=== PATIENT | male | born 1960 | race Caucasian/White ===

== ENCOUNTER 2023-03-20 08:53 | Outpatient (CLI) | payer BC, SELFPAY ==
--- NOTE | 2023-03-20 09:15 | CRLHL7_ITS ---
For Patients: As a result of the Century Cures Act, medical imaging exams and procedure reports are released immediately into your electronic medical record. You may view this report before your referring provider. If you have questions, please contact your health care provider. Ultrasound-guided core needle biopsy of left supraclavicular mass. CLINICAL HISTORY: Cervical adenopathy with large left supraclavicular mass. COMPARISON STUDIES: [facility] CT neck TECHNIQUE: Real-time ultrasound with image documentation was used for targeting the left supraclavicular lesion. Core biopsy specimens were obtained using an automated gun with a 18-gauge biopsy needle. CONSENT and TIME OUT: The procedure, risks, and alternatives were explained to the patient and a consent was signed. [place] Protocol was followed including pre-procedure verification that relevant information/documentation was available, reviewed and properly matched to the patient; consent accurate and complete; and equipment and supplies available. Time Out was conducted just prior to starting procedure to verify the four required elements: patient identity, correct side/site marked (if applicable), procedure, relevant images/results properly labeled and displayed (if applicable). PROCEDURE: The patient was positioned supine on the ultrasound table. The left side of the neck was prepped with ChloraPrep. 10 cc of 1 percent lidocaine used for local anesthesia. Core samples were obtained. The specimens were placed in 10% formalin and sent to the pathology department. Pressure was held on the biopsy site until all bleeding subsided. The skin incision was closed with Steri-Strips. LATERALITY: Left supraclavicular space LESION: Lobular hypoechoic conglomerate lymph node mass measuring 5 cm. SUSPICION FOR MALIGNANCY: High NUMBER OF SAMPLES: 5 IMPRESSION: Ultrasound-guided biopsy of left supraclavicular lymph node mass. Dictated by Arpit Valera MD @ 03/20/2023 11:16:48 AM (Electronically Signed)
== END 2023-03-20 08:54 | disposition home or self-care (01) ==
LOC: US 08:56
PROVIDERS: PCP Family Medicine; Visit Provider Family Medicine
DX: R59.1 Generalized enlarged lymph nodes (principal)
CPT/HCPCS: 20206; 76942; 88305; 88341; 88342; 88360; 88365; A4649

== ENCOUNTER 2023-03-28 13:44 | Emergency (ER) | payer BC, SELFPAY ==
[2023-03-28 13:51] VITALS: BP 114/75; PULSE 104; RESP 20; TEMP 38.4; O2SAT 98; BMI 25.4
--- NOTE | 2023-03-28 14:55 | CRLHL7_ITS ---
For Patients: As a result of the Cures Act, medical imaging exams and procedure reports are released immediately into your electronic medical record. You may view this report before your referring provider. If you have questions, please contact your health care provider. Indication: Fever Technique: Chest 2 views Comparison: None Findings: Cardiovascular and mediastinum: Heart size and vasculature are normal in caliber and appearance. Lungs and pleural spaces: Lungs are clear. No sign of infiltrate or mass. No sign of pleural effusion. No pneumothorax. Bones and soft tissues: No significant findings. Impression: No acute or significant findings. Dictated by Ever Albarran MD @ 03/28/2023 4:05:04 PM (Electronically Signed)
[2023-03-28 15:33] LABS: Lactate Sepsis w/Reflex* 1.7 mmol/L (0.5-1.9)
--- NOTE | 2023-03-28 15:34 | ED_ITS ---
HPI - General Adult General Date Seen: 03/28/23 Chief complaint: Urogenital Problems, Male Stated complaint: Fatigue, lymphoma, trouble urinating Time Seen by Provider: 03/28/23 13:54 History of Present Illness HPI narrative: This is a pleasant 63-year-old male presenting to the ER today with concern for fever, some generalized weakness, polydipsia without much urine output. He has a past medical history of hypertension and was recently diagnosed with lymphoma. He is not sure of the exact diagnosis or what kind of lymphoma he has. According to his recent oncology notes, he has follicular lymphoma grade IIIa. He just had the diagnosis about 10 days ago. He has had lymph node biopsies, CT scans of his neck, chest abdomen pelvis. He is due to have a PET scan at [facility] this week. He has been having low-grade fevers for a couple of weeks. He had been told these might be related to his lymphoma. However since Thursday night he has been worse. He has had higher fever, trouble sleeping, achiness and has been feeling worse. No other definite symptoms with the fever. No headache. No sore throat. No cough. No trouble breathing. No chest pain. No abdominal pain. No nausea or vomiting. He has been trying to drink lots of liquids and says he drinks for large cups of water per day. despite that for the past few days he has been noticing decreased urine output volume. Urine has been fairly yellow. This morning at a higher fever and was feeling worse, somewhat weak in general. No focal deficits. No rashes. No definite other urinary symptoms such as dysuria or cloudy urine. No flank pain. No diarrhea. He is not yet on chemotherapy. He is apparently due to see an oncologist sometime in the next week or 2 to determine a plan of care.. Related Data Home Medications Medication Instructions Recorded Confirmed aspirin 81 mg capsule 81 mg PO DAILY 03/28/23 03/28/23 hydrochlorothiazide 12.5 mg capsule 12.5 mg PO QAM 03/28/23 03/28/23 Allergies Allergy/AdvReac Type Severity Reaction Status Date / Time No Known Drug Allergies Allergy Verified 03/28/23 13:58 PFSH PFSH Social History Smoking Status: Former smoker Do you use any of these nicotine containing products: None Second hand tobacco smoke exposure: No How often do you have a drink containing alcohol: never AUDIT-C Alcohol total score: 0 Non-prescribed substance use: denies use service: No Exam Narrative: Exam Narrative: Constitutional: Appears well-developed and well-nourished. Alert. Conversant. Non toxic. HENT: Head: Atraumatic. Nose: Nose normal. Mouth/Throat: Oral mucosa is clear and moist. no trismus. Pharynx mildly erythematous with very tiny petechiae on the soft palate. Tonsils symmetric. No tonsillar enlargement or exudate. Eyes: Conjunctivae normal. EOM normal. Pupils equal, round, and reactive to light. No scleral icterus. Neck: Normal range of motion. Neck supple. No tracheal deviation present. Cardiovascular: Regular tachycardia heart rate about 105, regular rhythm. No gallop. No friction rub. No murmur heard. Symmetric radial artery pulses Pulmonary/Chest: Effort normal. No stridor. No respiratory distress. No wheezes. No rales. No rhonchi . No tenderness. Abdominal: Soft. Bowel sounds normal. No distension. No mass. No tenderness. No rebound. No guarding. No definite hepatosplenomegaly. No CVA tenderness. Musculoskeletal: RUE: Normal range of motion. No tenderness. No deformity LUE: Normal range of motion. No tenderness. No deformity RLE: Normal range of motion. No edema. No tenderness. No deformity LLE: Normal range of motion. No edema. No tenderness. No deformity Lymph: No cervical adenopathy. Neurological: Alert and oriented to person, place, and time. Normal strength. CN II-VII intact. No sensory deficit. GCS eye subscore is 4. GCS verbal subscore is 5. GCS motor subscore is 6. Normal coordination Skin: Skin is warm and dry. No rash noted. No pallor. Normal capillary refill. Psychiatric: Normal mood. Normal affect. Const: Vital Signs, click to edit/add: Vital Signs - 24 hr 03/28/23 13:51 03/28/23 17:33 03/28/23 17:59 Temperature 101.1 F H 100.6 F H Pulse Rate [Pulse Oximeter] 104 H 74 Respiratory Rate 20 22 Blood Pressure [Ri ght Upper Arm] 114/75 131/72 Pulse Oximetry 98 98 Oxygen Delivery Me thod Room Air Course Vital Signs Vital signs: Initial Vital Signs Temperature 101.1 F H 03/28/23 13:51 Temperature Source Temporal Artery Scan 03/28/23 13:51 Pulse Rate 104 H 03/28/23 13:51 Respiratory Rate 20 03/28/23 13:51 Blood Pressure 114/75 03/28/23 13:51 Blood Pressure Mean 88 03/28/23 13:51 Blood Pressure Position Sitting 03/28/23 13:51 Pulse Oximetry 98 03/28/23 13:51 Oxygen Delivery Method Room Air 03/28/23 13:51 Vital Signs Temperature 101.1 F H 03/28/23 13:51 Pulse Rate 104 H 03/28/23 13:51 Respiratory Rate 20 03/28/23 13:51 Blood Pressure 114/75 03/28/23 13:51 Pulse Oximetry 98 03/28/23 13:51 Oxygen Delivery Method Room Air 03/28/23 13:51 Temperature 100.6 F H 03/28/23 17:33 Pulse Rate 74 03/28/23 17:59 Respiratory Rate 22 03/28/23 17:59 Blood Pressure 131/72 03/28/23 17:59 Pulse Oximetry 98 03/28/23 17:59 Oxygen Delivery Method Room Air 03/28/23 13:51 Medical Decision Making MDM Narrative Medical decision making narrative: 63-year-old male with a recent diagnosis of follicular lymphoma, not yet on chemotherapy, presenting to the ER with concern for fever, also generalized weakness. In terms of the fever, he we are concerned because he has potential immunosuppression with his current lymphoma. is not currently on chemotherapy.. He is not neutropenic. He does have fever but no other clear symptoms to indicate a source for infection. On exam he has possible mild inflammation of the soft palate pharynx but no definite peritonsillar abscess. Lung sounds clear. Chest x-ray negative. COVIDnegative Flu and RSV negative.. No abdominal pain or flank pain to raise concern for intra-abdominal infection, pyelonephritis. Urinalysisnormal. Blood cultures are pending. White cell count is normal. CRP is elevated at 20.4. Blood pressure is normal. He has mild tachycardiac. After IV fluids heart rate improved to 74. No clear sepsis physiology. Labs do show hyponatremia. Sodium a few days ago was 132. Today it is down to 128. Unclear etiology. Patient does endorse drinking for large bottles of water per day. Potentially could be due to excess water intake. BUN and creatinine normal. Potassium normal at 3.9. Lactic acid normal. He does have mild anemia with a hemoglobin of 12.6. Platelet count 101. Suspect related to his lymphoma. No sign of active bleeding. No headache or confusion to suggest encephalitis or meningitis. No signs of skin infection or cellulitis. No evidence for joint infection or septic arthritis or osteomyelitis. Blood cultures pending. Discussed with the patient that the cause for his fever is unclear. Certainly occult infection, viral illness, or even bacteremia could be at play. Discussed options including admission for monitoring, pending your blood culture results versus discharge and monitoring at home. He strongly wants to discharge and does not want to be hospitalized. Therefore will discharge him home. He will follow-up with his primary, or come back to the ER within 2-3 days for recheck. He will also need to recheck his sodium level. Precautions for return to the ER reviewed. Questions answered. Patient is eager for discharge. Lab Data Labs: Lab Results 03/28/23 03/28/23 Range/Units 15:15 16:05 WBC 5.29 (4.50-11.00) K/uL RBC 4.66 (4.30-5.90) m/uL Hgb 12.6 L (13.5-17.5) gm/dL Hct 38.6 (37.0-53.0) % MCV 83 (80-100) fL MCH 27 (26-34) pg MCHC 33 (32-36) gm/dL RDW Coeff of Brooke 13.8 (11.5-15.5) % Plt Count 101 L (140-440) K/uL Neut % (Auto) 72.4 H (42.0-72.0) % Lymph % (Auto) 9.1 L (20-44) % Kleberg % (Auto) 14.2 H (0.0-11.0) % Eos % (Auto) 3.2 (0.0-7.0) % Baso % (Auto) 0.2 (0.0-3.0) % Neut # (Auto) 3.80 (1.7-7.0) K/uL Lymph # (Auto) 0.50 L (0.90-2.90) K/uL Kleberg # (Auto) 0.80 (0.00-0.90) K/UL Eos # (Auto) 0.17 (0.00-0.50) K/uL Baso # (Auto) 0.01 (0.00-0.30) K/uL Abs Immat Gran (auto) 0.05 (0.00-0.30) K/uL Imm/Tot Granulo (auto) 0.9 % Sodium 128 L (135-149) mmol/L Potassium 3.9 (3.6-5.1) mmol/L Chloride 92 L (96-114) mmol/L Carbon Dioxide 24 (20-32) mmol/L BUN 17 (7-30) mg/dL Creatinine 1.0 (0.5-1.5) mg/dL Estimated Creat Clear 81.91 Estimated GFR 84 ml/min Glucose 118 H (60-115) mg/dL Lactate 1.7 (0.5-1.9) mmol/L Calcium 8.6 (8.4-10.6) mg/dL C-Reactive Protein 20.4 H (0.5-1.0) mg/dL Urine Color Yellow (Yellow) Urine Appearance Clear (Clear) Urine pH 5.5 (5.0-8.5) Ur Specific [place] 1.015 (1.000-1.030) Urine Protein 2+ A (Negative) Urine Glucose (UA) Negative (Negative) Urine Ketones 3+ A (Negative) Urine Blood Negative (Negative) Urine Nitrite Negative (Negative) Urine Bilirubin 1+ A (Negative) Urine Urobilinogen 1.0 (0.2-1.0) Ur Leukocyte Esterase Negative (Negative) Urine RBC 0-2 (0-2) Urine WBC 0-2 (0-5) Ur Squamous Epith Cells None (None-Few) Amorphous Sediment Few A (None) Urine Bacteria Few A (None) SARS-CoV-2 (PCR) Negative SARS-CoV-2 (Negative) Influenza Type A (PCR) Negative PCR FLU A (Negative) Influenza Type B (PCR) Negative PCR FLU B (Negative) RSV (PCR) Negative PCR RSV (Negative) Group A Strep DNA NOT DETECTED (Not Detectd) Imaging Data Chest x-ray: Attestation: I have reviewed the pertinent imaging results. Radiologist's impression: Impression: No acute or significant findings. ECG Data Attestation: I personally reviewed and interpreted this ECG as follows: Interpretation: Rate 74 Normal sinus rhythm IN interval if 152 QRS axis : Left axis deviation. No pathologic Q-waves. ST segment/T-wave-no acute ischemia. QTC 419 Discharge Plan Discharge Clinical Impression: Fever, Hyponatremia Patient Disposition: Home, Self-Care Condition: Stable Instructions: Hyponatremia (ED), Fever in Adults (ED) Additional Instructions: As we discussed, the exact cause of the fever is unclear at this time. His blood cultures are still not resulted from the lab. If the result is a positive we will call you and have you return to the ER right away. If you get any worse or if you develop new symptoms such as headache, confusion, vomiting, cough, chest pain, abdominal pain please come back to the ER right away. Please see your doctor (or return to the ER) to recheck your labs and sodium level within 2-3 days. Prescriptions: No Action hydrochlorothiazide 12.5 mg capsule 12.5 mg PO QAM aspirin 81 mg capsule 81 mg PO DAILY Follow Up/Referrals: Mehul Schmidt MD [Primary Care Provider] - Stand Alone Forms: [facility] Info Instructions
[2023-03-28 15:46] LABS: Chloride* 92 mmol/L (96-114); Potassium* 3.9 mmol/L (3.6-5.1); Sodium* 128 mmol/L (135-149)
[2023-03-28 15:49] LABS: Est. Creatinine Clearance* 81.91; Estimated Glomerular Filt Rate 84 ml/min
[2023-03-28 15:50] LABS: Blood Urea Nitrogen* 17 mg/dL (7-30); Calcium* 8.6 mg/dL (8.4-10.6); Carbon Dioxide* 24 mmol/L (20-32); Glucose* 118 mg/dL (60-115)
[2023-03-28 15:53] LABS: Basophils Absolute Auto 0.01 K/uL (0.00-0.30); Basophils Percent Auto 0.2 % (0.0-3.0); Eosinophils Absolute Auto 0.17 K/uL (0.00-0.50); Eosinophils Percent Auto 3.2 % (0.0-7.0); Hematocrit 38.6 % (37.0-53.0); Hemoglobin* 12.6 gm/dL (13.5-17.5); Immature Granulocytes Abs Auto 0.05 K/uL (0.00-0.30); Immature Granulocytes Pct Auto 0.9 %; Lymphocytes Percent Auto 9.1 % (20-44); Mean Corpuscular HGB Conc 33 gm/dL (32-36); Mean Corpuscular Hemoglobin 27 pg (26-34); Mean Corpuscular Volume 83 fL (80-100); Monocytes Percent Auto 14.2 % (0.0-11.0); Neutrophils Percent Auto 72.4 % (42.0-72.0); Platelet Count* 101 K/uL (140-440); RDW Coefficient of Variation % 13.8 % (11.5-15.5); Red Blood Count 4.66 m/uL (4.30-5.90); White Blood Count* 5.29 K/uL (4.50-11.00)
[2023-03-28 15:59] LABS: Slide Review Reflex No
[2023-03-28 16:13] LABS: Appearance Urine Clear (Clear); Bilirubin Urine 1+ (Negative); Blood Urine Negative (Negative); Color Urine Yellow (Yellow); Glucose Urine Negative (Negative); Ketones Urine 3+ (Negative); Leukocyte Esterase Urine Negative (Negative); Nitrite Urine Negative (Negative); Protein Urine 2+ (Negative); Specific Gravity Urine 1.015 (1.000-1.030); pH Urine 5.5 (5.0-8.5)
[2023-03-28 16:15] LABS: C Reactive Protein* 20.4 mg/dL (0.5-1.0)
[2023-03-28 16:22] LABS: PCR FLU A Negative PCR FLU A (Negative); PCR FLU B Negative PCR FLU B (Negative); PCR RSV Negative PCR RSV (Negative)
[2023-03-28 16:48] LABS: Amorphous Sediment Urine Few; Bacteria Urine Few; RBC Urine 0-2 (0-2); WBC Urine 0-2 (0-5)
[2023-03-28 16:58] LABS: SARS PCR* Negative SARS-CoV-2 (Negative); Strep A DNA Probe* NOT DETECTED (Not Detectd)
[2023-03-28 17:33] VITALS: TEMP 38.1
[2023-03-28 17:59] VITALS: BP 131/72; PULSE 74; RESP 22; O2SAT 98
[2023-03-28 18:42] VITALS: BP 131/72; PULSE 74; RESP 22; TEMP 38.1
== END 2023-03-28 18:42 | disposition home or self-care (01) ==
PROVIDERS: Emergency Provider Emergency Medicine; PCP Family Medicine
DX: R50.9 Fever, unspecified (principal); E87.1 Hypo-osmolality and hyponatremia
CPT/HCPCS: 36415; 71046; 80048; 81001; 83605; 85025; 86140; 87040; 87086; 87631; 87651; 93005; 99284; 99285

== ENCOUNTER 2023-04-07 14:32 | Outpatient (CLI) | payer BC, SELFPAY ==
[2023-04-07] MEDS: PERFLUTREN LIPID MICROSPHERES 2 ML VIAL IV (15:10)
== END 2023-04-07 14:33 | disposition home or self-care (01) ==
LOC: RAD 14:32
PROVIDERS: PCP Family Medicine; Visit Provider Internal Medicine Hematology & Oncology
DX: C82.30 Follicular lymphoma grade IIIa, unspecified site (principal); I35.1 Nonrheumatic aortic (valve) insufficiency; I34.0 Nonrheumatic mitral (valve) insufficiency
CPT/HCPCS: 93306; Q9957

== ENCOUNTER 2023-04-09 09:47 | Day surgery (SDC) | payer BC, SELFPAY ==
[2023-04-09] MEDS: LACTATED RINGERS 1000 ML 1,000 ML 100 ML IV ×2 (10:10→11:54)
[2023-04-09] MEDS: SODIUM CHLORIDE 0.9 % (FLUSH) 10 ML SYRINGE IVF (10:30)
[2023-04-09 10:48] VITALS: BP 106/76; PULSE 57; RESP 16; TEMP 36.7; O2SAT 99; BMI 26.7
--- NOTE | 2023-04-09 11:09 | PM.GSCN ---
History of Present Illness Consult details Date Seen: 04/09/23 Consult date: 04/09/23 Narrative: The patient is a 63-year-old male who noticed a left neck mass. Biopsy revealed follicular carcinoma. Staging workup was completed and chemotherapy was recommended. He is here today for port placement. He has had no recent chest pain or shortness of breath and is overall feeling well today. He does not take any blood thinners. [facility] Medical History (Updated 04/08/23 @ 08:50 by Linda May RN) Hyponatremia ?E87.1 - Hypo-osmolality and hyponatremia (ICD-10) Follicular lymphoma grade 3a ?C82.30 - Follicular lymphoma grade IIIa, unspecified site (ICD-10) Social History Smoking Status: Former smoker Do you use any of these nicotine containing products: None Second hand tobacco smoke exposure: No How often do you have a drink containing alcohol: 2-3 times a week AUDIT-C Alcohol total score: 3 Non-prescribed substance use: denies use service: No Meds Home Medications and Allergies Home Medications Medication Instructions Recorded Confirmed Type aspirin 81 mg capsule 81 mg PO DAILY 03/28/23 04/09/23 History ibuprofen 200 mg tablet (Advil) 200 mg PO Q6H PRN 04/01/23 04/09/23 History Allergies Allergy/AdvReac Type Severity Reaction Status Date / Time No Known Drug Allergies Allergy Verified 04/01/23 10:12 Exam Narrative: Exam Narrative: General appearance: Alert, cooperative, and in no distress Eyes: PERRLA, eye lids clear, and sclera white HENT Head: Normocephalic Ears: External ears normal Neck: Palpable cervical lymphadenopathy bilaterally, left greater than right. Pulmonary: Clear to auscultation bilaterally Chest: No scars. Cardiovascular Heart: Regular rate and rhythm Extremities: warm and well perfused Psychiatric: Alert, oriented, cooperative, normal affect. Const: Vital Signs, click to edit/add: Vital Signs - 24 hr 04/09/23 10:48 Temperature 98.0 F Pulse Rate 57 L Respiratory Rate 16 Blood Pressure 106/76 Pulse Oximetry 99 Oxygen Delivery Me thod Room Air Results Labs Labs: Most recent white blood cell count was 3 Hemoglobin 12 Platelet 138 Imaging Additional studies: PET-CT images reviewed no pulmonary pathology noted. Assessment and Plan Assessment and plan (1) Follicular lymphoma grade 3a: Status: Acute Plan The patient is a 63-year-old male who is here today for port placement. We discussed risks and benefits of the procedure. He is agreeable to proceed. There are no contraindications to surgery today
--- NOTE | 2023-04-09 11:13 | PM.GSPRC ---
Operative Note Pre-op diagnosis: Follicular lymphoma grade 3 Post-op diagnosis: Same Indications: The patient is a 63-year-old male with follicular lymphoma. Port placement was requested and after discussion, patient agreed to proceed. Procedure Description: After discussing the risks and benefits of the procedure, the patient signed informed consent.? The operative site was marked and the patient was brought to the operating room and placed on the operating table in supine position.? Care was taken to pad the patient's pressure points.?? The patient was then given sedation by anesthesia.?? The operative site was then prepped and draped in the usual sterile fashion.? A time-out was then performed. The patient's right internal jugular vein was visualized using ultrasound. Of note, the patient had adenopathy on this side lateral medial and deep to the vein, however, the vein was able to be localized in his usual location by both its compressibility and by identifying the carotid artery medially. Local anesthetic was injected into the skin overlying the vein. The vein was accessed percutaneously using ultrasound guidance. Using Seldinger technique, a guidewire was threaded through the needle. A skin jose de jesus was made around the wire. Next, local anesthetic was injected into the skin below the clavicle and along the proposed tract to the neck incision. A skin incision was then made with a 15 blade and a pocket created in the subcutaneous tissue with cautery. A tunneler was then used to thread the catheter from the chest wall pocket to the neck incision. Once this was done fluoroscopy was brought into the field. Over the wire the tract was dilated using fluoroscopy. The wire and the dilator were then removed leaving the sheath in the vein. Through this, the catheter was threaded. Using fluoroscopy, the catheter was positioned into the distal SVC. The catheter was noted to flush and aspirate easily. The catheter was then connected to the port. The port was placed in the pocket and secured in place with 2 0 Prolene sutures. It was noted to flush and aspirate easily. This was then locked with heparinized saline. The skin was closed with absorbable suture. Sterile dressings were applied. Instrument sponge and needle counts were correct at the end of the case. The patient was woken and taken to the PACU in stable condition. ? The patient tolerated the procedure well. Findings: Right IJ power port placed in the low SVC. Implants: Power port Anesthesia: MAC Surgeon: Jolly Barnett MD Estimated blood loss (mL): 5 Condition: stable Disposition: same day
--- NOTE | 2023-04-09 11:13 | W.ANESCHARGE ---
Anesthesia Charges Start Date/Time Anesthesia Start Date: 04/09/23 Anesthesia Start Time: 11:12 Stop Date/Time Anesthesia Stop Date: 04/09/23 Anesthesia Stop Time: 12:08
[2023-04-09] MEDS: CEFAZOLIN 2 GM INJ IVP (11:24)
--- NOTE | 2023-04-09 11:45 | CRLHL7_ITS ---
For Patients: As a result of the Century Cures Act, medical imaging exams and procedure reports are released immediately into your electronic medical record. You may view this report before your referring provider. If you have questions, please contact your health care provider. INDICATION: Port-A-Cath placement. TECHNIQUE: Fluoroscopically guided right-sided Port-A-Cath placement. FINDINGS: A single spot image demonstrates a right-sided Port-A-Cath with its lead tip in the superior vena cava. 26 seconds fluoroscopy time utilized. IMPRESSION: Right-sided Port-A-Cath placement. 26 seconds fluoroscopy time utilized. Dictated by Kaleb Hussein MD @ 04/09/2023 12:06:01 PM (Electronically Signed)
[2023-04-09] MEDS: 0.9% SODIUM CHL 50 ML VIAL INJECTION (11:50)
[2023-04-09] MEDS: HEPARIN 500 UNIT/5 ML SYRINGE IVF (11:50)
[2023-04-09] MEDS: BUPIVACAINE 0.5% 30 ML INJECTION (11:50)
[2023-04-09] MEDS: LIDOCAINE 1% MDV 20 ML INJECTION (11:50)
[2023-04-09 12:06] VITALS: BP 85/59; PULSE 57; RESP 16; TEMP 36.5; O2SAT 94
[2023-04-09 12:07] VITALS: BP 90/64; PULSE 60; RESP 16; O2SAT 92
--- NOTE | 2023-04-09 12:09 | W.ANESCHARGE ---
Anesthesia Charges Start Date/Time Anesthesia Start Date: 04/09/23 Anesthesia Start Time: 11:12 Stop Date/Time Anesthesia Stop Date: 04/09/23 Anesthesia Stop Time: 12:08
--- NOTE | 2023-04-09 12:12 | CRLHL7_ITS ---
For Patients: As a result of the Century Cures Act, medical imaging exams and procedure reports are released immediately into your electronic medical record. You may view this report before your referring provider. If you have questions, please contact your health care provider. INDICATION: Port-A-Cath placement. TECHNIQUE: AP portable postoperative chest x-ray. COMPARISON: Two-view chest March 28, 2023. FINDINGS: Right-sided Port-A-Cath with its lead tip in the superior vena cava. No pneumothorax. Clear lungs. Normal heart size. Normal included skeleton. IMPRESSION: Right-sided Port-A-Cath in good position. No pneumothorax. Dictated by Kaleb Hussein MD @ 04/09/2023 3:17:19 PM (Electronically Signed)
[2023-04-09 12:15] VITALS: BP 95/67; PULSE 61; RESP 16; O2SAT 94
[2023-04-09 12:30] VITALS: BP 100/70; PULSE 63; RESP 16; O2SAT 98
[2023-04-09 12:44] VITALS: BP 113/71; PULSE 51; RESP 16; O2SAT 99
--- NOTE | 2023-04-10 08:52 | SUR.OPER ---
Verified prep with Erin Smith RN.
== END 2023-04-09 13:11 | disposition home or self-care (01) ==
PROVIDERS: PCP Family Medicine; Visit Provider Surgery
PROC: (CPT 36561; principal; 2023-04-09 11:45)
DX: Z45.2 Encounter for adjustment and management of vascular access device (principal); C82.20 Follicular lymphoma grade III, unspecified, unspecified site
CPT/HCPCS: 36561; 00532; 71045; C1788; J0665; J0690; J1100; J1642; J2250; J2405; J2704; J3010; J7120

== ENCOUNTER 2023-06-25 16:14 | Outpatient (CLI) | payer BC, SELFPAY ==
--- NOTE | 2023-06-25 17:00 | PE_ITS ---
[facility] [address] [facility] [address] Phone:?[phone] Fax:?[phone] Referring Physician Information: Anya Mckeon N.P. [address] [facility] [address] Phone:?[phone] Fax:?[phone] Patient:Penny Campos D.O.B:?1960 Sex:?Male Phone:?[phone] [facility] MRN:?[id number] Exam Date:?06/25/2023 EXAM: PET EYES TO THIGHS, CANCER RESTAGING CLINICAL INFORMATION: Follicular lymphoma, restaging. TECHNICAL INFORMATION: Helical acquisition of data was obtained from the orbits to the upper thighs with reconstruction of 3.75 mm thick images at 3.[address] data was used for attenuation correction. PET scanning was performed through the same anatomic range 60 minutes following administration of 14.59 mCi of 18-FDG delivered intravenously. The patient's glucose at the time of the injection was 85 mg/dL. PET, CT and PET/CT fusion images are interpreted using a computer viewing workstation. PET, CT and PET/CT fusion images were archived and saved in the patient's permanent medical record. COMPARISON: PET-CT from 03/30/2023. INTERPRETATION: Head and Neck: There are no abnormal hypermetabolic foci within the head or neck. There is physiologic uptake in the intracranial soft tissues. Multiple nonenlarged lymph nodes are present throughout the neck, bilaterally, consistent with treated/quiescent disease. Index lesions include: ...a) left supraclavicular node/conglomerate (Se 2 Im 64) measures 2.2 x 1.0 cm with maximum SUV of 2.21 ...b) right upper paratracheal node (Se 2 Im 71) measures 1.2 x 1.0 cm with maximum SUV of 2.71, previously 1.9 cm in short axis with maximum SUV of 9.1. Chest: There are no abnormal hypermetabolic foci within the chest. Background mediastinal blood pool uptake has a maximum SUV of 3.35. No lung nodules or masses detected on this free-breathing exam. No present lymphadenopathy in terms of size, morphology, or metabolic rate; previously indexed subcarinal and axillary nodes are no longer enlarged or hypermetabolic. Right chest port catheter terminates at the cavoatrial junction. Abdomen and Pelvis: There are no abnormal hypermetabolic foci within the abdomen or pelvis. Background hepatic parenchymal uptake has a maximum SUV of 4.0. Splenic parenchymal uptake has a maximum SUV of 2.88. There is physiologic excretion of radiotracer in the urine and bowel. No abdominopelvic lymphadenopathy in terms of size, morphology, or metabolic rate; previously indexed portocaval, retroperitoneal, and pelvic nodes are no longer enlarged or hypermetabolic. Prior splenomegaly has resolved. Skeleton, Musculature, and Integument: No abnormal hypermetabolic foci within the skeleton. No sofiya osteoblastic or osteolytic disease. CONCLUSION: No abnormal FDG uptake to indicate metabolically active lymphoma. Prior lymphadenopathy and splenomegaly have resolved. Findings indicate complete response to therapy. Deauville score is 1. Electronically signed on 06/26/2023 11:40:00 AM by Chano Rainey M.D.
== END 2023-06-25 16:15 | disposition home or self-care (01) ==
LOC: RAD 16:15
PROVIDERS: PCP Family Medicine; Visit Provider Clinical Nurse Specialist
DX: C82.30 Follicular lymphoma grade IIIa, unspecified site (principal)
CPT/HCPCS: 78815; A9552

== ENCOUNTER 2023-09-21 08:24 | Outpatient (RCR) | payer BC, SELFPAY ==
[2023-04-01] MEDS: 0.9 % SODIUM CHLORIDE 1000 ml 1,000 ML IV (11:20)
[2023-04-01] MEDS: dexAMETHasone 10 MG/ML inj IVP (11:44)
[2023-04-01 12:31] LABS: Uric Acid* 6.6 mg/dL (2.2-8.4)
[2023-04-01 14:01] LABS: Hepatitis B Surface Antigen* Negative (Negative)
--- NOTE | 2023-04-02 15:40 | ONC.NURNOTE ---
Pt called stating he feels better after receiving IVF and dex yesterday. Continues to have a difficult time talking, no problems understanding pt on the phone. Leny to follow up with pt regarding upcoming appointments. Pt verbalized understanding of plan of care.
[2023-04-02 16:04] LABS: Hepatitis B Core Antibodies Negative (Negative)
--- NOTE | 2023-04-03 14:12 | URNOTE ---
Request received for authorization for? Drugs and Dose: Do not require Prior Authorization per [facility] on behalf of [facility]. Cyclophosphamide (J-9070)-1540mg IV over 30-45 mins Doxorubicin (J-9000)-102mg IVP Vincristine (J-9370)-2mg IVPB over 10 mins Fosaprepitant (J-1453)- 150mg over 15-30 minutes prior to chemo Palonosetron (J-2469)- 0.25mg IVP prior to chemo Authorized medications (Ref #[id number]) from [facility] from 04/02/2023 to 04/01/2024: Gazyva (J-9301)- 1st cycle--1000mg IV day 1- -day 8 --day 15-- then 1000mg every 21 days- approved for 18 visits. Neulasta (J-2506)- 6mg SQ ON-PRO- approved for 18 visits.
--- NOTE | 2023-04-03 14:24 | ONC.NURNOTE ---
Patient was called with appts for Echo, teaching, lab, port placement (surgery will call the patient with more info) and chemo start date
[2023-04-08 15:24] LABS: Hematocrit 40.1 % (37.0-53.0); Hemoglobin* 12.5 gm/dL (13.5-17.5); Immature Granulocytes Pct Auto 1.2 %; Lymphocytes Percent Auto 11.1 % (20-44); Mean Corpuscular HGB Conc 31 gm/dL (32-36); Mean Corpuscular Hemoglobin 26 pg (26-34); Mean Corpuscular Volume 84 fL (80-100); Monocytes Percent Auto 10.5 % (0.0-11.0); Neutrophils Percent Auto 77.2 % (42.0-72.0); Platelet Count* 138 K/uL (140-440); RDW Coefficient of Variation % 14.6 % (11.5-15.5); Red Blood Count 4.78 m/uL (4.30-5.90); White Blood Count* 3.25 K/uL (4.50-11.00)
[2023-04-08 15:36] LABS: Slide Review Reflex No
[2023-04-08 15:37] LABS: Chloride* 102 mmol/L (96-114); Sodium* 135 mmol/L (135-149)
[2023-04-08 15:38] LABS: Potassium* 4.6 mmol/L (3.6-5.1)
[2023-04-08 15:40] LABS: Alanine Aminotransferase* 57 U/L (4-50); Alkaline Phosphatase* 107 U/L (40-150); Anion Gap 6 mEq/L (7-15); Aspartate Amino Transferase* 42 U/L (12-35); Bilirubin Total* 0.5 mg/dL (0.1-1.5); Blood Urea Nitrogen* 21 mg/dL (7-30); Carbon Dioxide* 27 mmol/L (20-32); Creatinine* 0.8 mg/dL (0.5-1.5); Estimated Glomerular Filt Rate 99 ml/min; Glucose* 123 mg/dL (60-115); Total Protein* 6.4 g/dL (6.0-8.3)
--- NOTE | 2023-04-08 16:14 | ONC.NURNOTE ---
Teaching on [facility] with and patient reviewed treatment regimen and schedule possible side effects of each of the medications discussed self care at home, after hours resources, going to ER with fever >100.5, importance of hydration after chemo, diet, activity reviewed information in binder for new treatment starts many questions addressed consents/ROIs reviewed and signed port placement planned for tomorrow labs done today
[2023-04-09 18:02] LABS: Lactate Dehydrogenase* 413 U/L (120-246)
--- NOTE | 2023-04-10 14:47 | URNOTE ---
Per Pratibha at [facility], Bendamustine ([id number]) and Gazyva (J9301) have been approved 04/09/2023-08/17/2023.
[2023-04-10 18:12] LABS: Calcium* 8.3 mg/dL (8.4-10.6)
[2023-04-14] VITALS (8 sets, daily range): BP systolic 100–118; BP diastolic 62–77; PULSE 64–96; RESP 16–18; TEMP 36.1–36.9; O2SAT 96–97
[2023-04-14] MEDS: ACETAMINOPHEN 325 MG TABLET 975 MG PO (09:30)
[2023-04-14] MEDS: dexAMETHasone 20 MG in 0.9 % SODIUM CHLORIDE 100 ml 100 ML 420 MG IVPB (09:43)
[2023-04-14] MEDS: diphenhydrAMINE 50 MG in 0.9 % SODIUM CHLORIDE 100 ml 100 ML 420 MG IVPB (10:00)
[2023-04-14] MEDS: 0.9 % SODIUM CHLORIDE 250 ml IV (10:00)
[2023-04-14 10:27] LABS: Uric Acid* 4.7 mg/dL (2.2-8.4)
[2023-04-14] MEDS: OBINUTUZUMAB 1,000 MG, TUBING PRIMARY 1 EACH in 0.9 % SODIUM CHLORIDE 250 ml 250 ML 13 MG IVPB (11:15)
--- NOTE | 2023-04-14 13:57 | ONC.NURNOTE ---
Gazyva/Bendamustine treatment plan. CVP plan in chart, but not being used. Will get Gazyva (Day1)+ Bendamustine (Day 1,2) - dosing matches Anya's paper orders. Regimen to be given every 28 days.
[2023-04-14] MEDS: ONDANSETRON ODT 4 MG TAB 8 MG PO (15:15)
[2023-04-15 09:31] VITALS: BP 120/82; RESP 16; TEMP 36.4; O2SAT 100
[2023-04-15] MEDS: SODIUM CHLORIDE 0.9 % (FLUSH) 10 ML SYRINGE IVF ×2 (10:00→11:40)
[2023-04-15] MEDS: 5 % DEXTROSE 250 ML IV (10:00)
[2023-04-15] MEDS: dexAMETHasone 10 MG in 0.9 % SODIUM CHLORIDE 100 ml 100 ML 420 MG IVPB (10:10)
[2023-04-15] MEDS: HEPARIN 500 UNIT/5 ML SYRINGE IVF (11:40)
--- NOTE | 2023-04-16 08:53 | PC.NURSE ---
Received denial for Zofran from [facility] pharmacy. Called pt with this update. Offered pt the option to switch to Compazine for the rest of today and tomorrow so that he has both Zofran and Compazine to use as needed going forward. Khai states that he has had no nausea and has no concerns with constipation. He verbalized understanding. If he completes his 3 days of Zofran three times daily, he will be out until insurance approves it. If he switches to Compazine as mentioned above, he will have a few Zofran to use as needed. Pt will do what feels best to him. He has no further questions.
[2023-04-21 07:56] VITALS: BP 110/74; PULSE 66; RESP 16; TEMP 36.4; O2SAT 100
[2023-04-21 08:10] LABS: Basophils Percent Auto 0.3 % (0.0-3.0); Eosinophils Percent Auto 6.3 % (0.0-7.0); Hematocrit 38.3 % (37.0-53.0); Immature Granulocytes Pct Auto 0.9 %; Lymphocytes Percent Auto 8.5 % (20-44); Mean Corpuscular HGB Conc 31 gm/dL (32-36); Mean Corpuscular Hemoglobin 26 pg (26-34); Mean Corpuscular Volume 84 fL (80-100); Monocytes Percent Auto 8.9 % (0.0-11.0); Neutrophils Percent Auto 75.1 % (42.0-72.0); Platelet Count* 121 K/uL (140-440); RDW Coefficient of Variation % 16.7 % (11.5-15.5); Red Blood Count 4.54 m/uL (4.30-5.90); White Blood Count* 3.16 K/uL (4.50-11.00)
[2023-04-21 08:12] LABS: Slide Review Reflex No
[2023-04-21 08:23] LABS: Albumin* 3.4 g/dL (3.3-5.0); Chloride* 104 mmol/L (96-114); Potassium* 4.4 mmol/L (3.6-5.1); Sodium* 138 mmol/L (135-149)
[2023-04-21 08:25] LABS: Bilirubin Total* 0.5 mg/dL (0.1-1.5); Est. Creatinine Clearance* 79.48; Estimated Glomerular Filt Rate 84 ml/min
[2023-04-21 08:26] LABS: Alanine Aminotransferase* 23 U/L (4-50); Alkaline Phosphatase* 82 U/L (40-150); Anion Gap 8 mEq/L (7-15); Aspartate Amino Transferase* 24 U/L (12-35); Blood Urea Nitrogen* 17 mg/dL (7-30); Calcium* 9.1 mg/dL (8.4-10.6); Carbon Dioxide* 26 mmol/L (20-32); Glucose* 114 mg/dL (60-115); Total Protein* 6.4 g/dL (6.0-8.3)
[2023-04-21] MEDS: 0.9 % SODIUM CHLORIDE 250 ml IV (08:28)
[2023-04-21] MEDS: ACETAMINOPHEN 325 MG TABLET 975 MG PO (08:29)
[2023-04-21] MEDS: SODIUM CHLORIDE 0.9 % (FLUSH) 10 ML SYRINGE IVF (08:29)
[2023-04-21 08:35] LABS: Uric Acid* 5.1 mg/dL (2.2-8.4)
[2023-04-21] MEDS: diphenhydrAMINE 50 MG in 0.9 % SODIUM CHLORIDE 100 ml 100 ML 404 MG IVPB (09:00)
[2023-04-21] MEDS: dexAMETHasone 20 MG in 0.9 % SODIUM CHLORIDE 100 ml 100 ML 408 MG IVPB (09:24)
[2023-04-21] MEDS: ONDANSETRON 2 MG/ML inj 8 MG IV (09:45)
[2023-04-21] MEDS: OBINUTUZUMAB 1,000 MG, TUBING PRIMARY 1 EACH in 0.9 % SODIUM CHLORIDE 250 ml 250 ML 25 MG IVPB (10:11)
[2023-04-21 10:45] VITALS: BP 99/64; PULSE 55; RESP 18; TEMP 36.6; O2SAT 98
[2023-04-21 11:16] VITALS: BP 99/64; PULSE 56; RESP 16; TEMP 36.2; O2SAT 97
[2023-04-21 11:49] VITALS: BP 94/60; PULSE 59; RESP 16; TEMP 36.1; O2SAT 97
[2023-04-21 13:50] VITALS: BP 103/65; PULSE 60; RESP 16; TEMP 36.4; O2SAT 98
[2023-04-21] MEDS: HEPARIN 500 UNIT/5 ML SYRINGE IVF (16:03)
--- NOTE | 2023-04-22 13:21 | ONC.NURNOTE ---
called stating one ankle rash. reassurance given. if rash on trunk/back call. reviewed allergic reaction.
--- NOTE | 2023-04-23 13:07 | ONC.NURNOTE ---
Patients [place] paperwork reviewer called and wanted a verbal clarification if patient needs restrictions daily or only during flare ups. Clarification was received only during flare ups. Message left for company.
[2023-04-28 08:11] VITALS: BP 109/68; PULSE 59; RESP 16; TEMP 36.2; O2SAT 99
[2023-04-28 08:26] LABS: Basophils Percent Auto 0.7 % (0.0-3.0); Eosinophils Percent Auto 8.7 % (0.0-7.0); Hematocrit 36.9 % (37.0-53.0); Immature Granulocytes Pct Auto 0.7 %; Lymphocytes Percent Auto 24.3 % (20-44); Mean Corpuscular HGB Conc 33 gm/dL (32-36); Mean Corpuscular Hemoglobin 27 pg (26-34); Mean Corpuscular Volume 84 fL (80-100); Monocytes Percent Auto 11.2 % (0.0-11.0); Neutrophils Percent Auto 54.4 % (42.0-72.0); Platelet Count* 151 K/uL (140-440); RDW Coefficient of Variation % 17.2 % (11.5-15.5); White Blood Count* 2.76 K/uL (4.50-11.00)
[2023-04-28 08:29] LABS: Slide Review Reflex No
[2023-04-28 08:30] LABS: Albumin* 3.6 g/dL (3.3-5.0); Chloride* 105 mmol/L (96-114); Sodium* 137 mmol/L (135-149)
[2023-04-28 08:31] LABS: Potassium* 4.8 mmol/L (3.6-5.1)
[2023-04-28 08:33] LABS: Alanine Aminotransferase* 25 U/L (4-50); Alkaline Phosphatase* 104 U/L (40-150); Anion Gap 6 mEq/L (7-15); Aspartate Amino Transferase* 27 U/L (12-35); Bilirubin Total* 0.5 mg/dL (0.1-1.5); Blood Urea Nitrogen* 22 mg/dL (7-30); Calcium* 9.3 mg/dL (8.4-10.6); Carbon Dioxide* 26 mmol/L (20-32); Creatinine* 0.9 mg/dL (0.5-1.5); Est. Creatinine Clearance* 79.48; Estimated Glomerular Filt Rate 95 ml/min; Glucose* 98 mg/dL (60-115); Lactate Dehydrogenase* 232 U/L (120-246); Total Protein* 6.5 g/dL (6.0-8.3)
[2023-04-28] MEDS: ACETAMINOPHEN 325 MG TABLET 975 MG PO (09:04)
[2023-04-28] MEDS: dexAMETHasone 20 MG in 0.9 % SODIUM CHLORIDE 100 ml 100 ML 408 MG IVPB (09:05)
[2023-04-28] MEDS: ONDANSETRON 2 MG/ML inj 8 MG IV (09:05)
[2023-04-28] MEDS: diphenhydrAMINE 50 MG in 0.9 % SODIUM CHLORIDE 100 ml 100 ML 404 MG IVPB (09:24)
[2023-04-28] MEDS: OBINUTUZUMAB 1,000 MG, TUBING PRIMARY 1 EACH in 0.9 % SODIUM CHLORIDE 250 ml 250 ML 25 MG IVPB (09:53)
[2023-04-28 10:28] VITALS: BP 95/69; PULSE 57; RESP 18; TEMP 36.2; O2SAT 99
[2023-04-28 11:01] VITALS: BP 106/66; PULSE 58; RESP 16; TEMP 36.6; O2SAT 98
[2023-04-28 11:32] VITALS: BP 102/66; PULSE 62; RESP 16; TEMP 36.3; O2SAT 96
[2023-04-28] MEDS: SODIUM CHLORIDE 0.9 % (FLUSH) 10 ML SYRINGE IVF (13:48)
[2023-04-28] MEDS: HEPARIN 500 UNIT/5 ML SYRINGE IVF (13:48)
[2023-04-28 13:55] VITALS: BP 110/68; PULSE 64; RESP 16; TEMP 36.3; O2SAT 98
[2023-05-11 08:36] LABS: Basophils Percent Auto 0.3 % (0.0-3.0); Eosinophils Percent Auto 4.4 % (0.0-7.0); Hemoglobin* 11.7 gm/dL (13.5-17.5); Immature Granulocytes Pct Auto 0.9 %; Lymphocytes Percent Auto 24.9 % (20-44); Mean Corpuscular HGB Conc 33 gm/dL (32-36); Mean Corpuscular Hemoglobin 27 pg (26-34); Mean Corpuscular Volume 84 fL (80-100); Monocytes Percent Auto 14.1 % (0.0-11.0); Neutrophils Percent Auto 55.4 % (42.0-72.0); Platelet Count* 113 K/uL (140-440); RDW Coefficient of Variation % 18.1 % (11.5-15.5); Red Blood Count 4.29 m/uL (4.30-5.90); White Blood Count* 3.41 K/uL (4.50-11.00)
[2023-05-11 08:43] LABS: Slide Review Reflex No
[2023-05-11 08:56] LABS: Albumin* 3.6 g/dL (3.3-5.0); Chloride* 107 mmol/L (96-114); Potassium* 4.3 mmol/L (3.6-5.1); Sodium* 137 mmol/L (135-149)
[2023-05-11 08:59] LABS: Alanine Aminotransferase* 26 U/L (4-50); Alkaline Phosphatase* 95 U/L (40-150); Anion Gap 4 mEq/L (7-15); Aspartate Amino Transferase* 31 U/L (12-35); Bilirubin Total* 0.5 mg/dL (0.1-1.5); Blood Urea Nitrogen* 18 mg/dL (7-30); Carbon Dioxide* 26 mmol/L (20-32); Est. Creatinine Clearance* 79.48; Estimated Glomerular Filt Rate 84 ml/min; Glucose* 106 mg/dL (60-115); Total Protein* 6.1 g/dL (6.0-8.3)
[2023-05-11 09:00] LABS: Calcium* 9.1 mg/dL (8.4-10.6)
[2023-05-11] MEDS: ACETAMINOPHEN 325 MG TABLET 975 MG PO (09:42)
[2023-05-11] MEDS: ONDANSETRON 2 MG/ML inj 8 MG IV (09:49)
[2023-05-11] MEDS: diphenhydrAMINE 50 MG in 0.9 % SODIUM CHLORIDE 100 ml 100 ML 404 MG IVPB (09:58)
[2023-05-11] MEDS: dexAMETHasone 20 MG in 0.9 % SODIUM CHLORIDE 100 ml 100 ML 408 MG IVPB (10:17)
[2023-05-11] MEDS: OBINUTUZUMAB 1,000 MG, TUBING PRIMARY 1 EACH in 0.9 % SODIUM CHLORIDE 250 ml 250 ML 30 MG IVPB (10:39)
[2023-05-11 11:14] VITALS: BP 97/66; PULSE 53; RESP 18; TEMP 36.2; O2SAT 98
[2023-05-12 08:00] VITALS: BP 107/63; PULSE 66; RESP 16; TEMP 36.5; O2SAT 100
[2023-05-12] MEDS: ONDANSETRON 2 MG/ML inj 8 MG IV (08:11)
[2023-05-12] MEDS: 0.9 % SODIUM CHLORIDE 250 ml IV (08:11)
[2023-05-12] MEDS: dexAMETHasone 20 MG in 0.9 % SODIUM CHLORIDE 100 ml 100 ML 408 MG IVPB (08:19)
[2023-05-12] MEDS: HEPARIN 500 UNIT/5 ML SYRINGE IVF (09:05)
[2023-05-12] MEDS: SODIUM CHLORIDE 0.9 % (FLUSH) 10 ML SYRINGE IVF (09:05)
[2023-06-08 08:11] VITALS: BP 98/65; PULSE 57; RESP 16; TEMP 36; O2SAT 100
[2023-06-08 08:32] LABS: Basophils Percent Auto 0.3 % (0.0-3.0); Eosinophils Percent Auto 2.9 % (0.0-7.0); Hematocrit 35.6 % (37.0-53.0); Hemoglobin* 11.6 gm/dL (13.5-17.5); Immature Granulocytes Pct Auto 0.6 %; Lymphocytes Percent Auto 44.8 % (20-44); Mean Corpuscular HGB Conc 33 gm/dL (32-36); Mean Corpuscular Hemoglobin 28 pg (26-34); Mean Corpuscular Volume 87 fL (80-100); Monocytes Percent Auto 16.8 % (0.0-11.0); Neutrophils Percent Auto 34.6 % (42.0-72.0); Platelet Count* 108 K/uL (140-440); RDW Coefficient of Variation % 17.2 % (11.5-15.5)
[2023-06-08 08:44] LABS: Slide Review Reflex No
[2023-06-08 08:45] LABS: Albumin* 3.8 g/dL (3.3-5.0); Chloride* 109 mmol/L (96-114); Sodium* 139 mmol/L (135-149)
[2023-06-08 08:46] LABS: Potassium* 4.1 mmol/L (3.6-5.1)
[2023-06-08 08:48] LABS: Alanine Aminotransferase* 25 U/L (4-50); Alkaline Phosphatase* 66 U/L (40-150); Anion Gap 7 mEq/L (7-15); Aspartate Amino Transferase* 37 U/L (12-35); Bilirubin Total* 0.7 mg/dL (0.1-1.5); Blood Urea Nitrogen* 16 mg/dL (7-30); Carbon Dioxide* 23 mmol/L (20-32); Est. Creatinine Clearance* 79.48; Estimated Glomerular Filt Rate 84 ml/min; Glucose* 105 mg/dL (60-115); Total Protein* 5.9 g/dL (6.0-8.3)
[2023-06-08 08:49] LABS: Calcium* 8.9 mg/dL (8.4-10.6)
[2023-06-08] MEDS: ACETAMINOPHEN 325 MG TABLET 975 MG PO (09:12)
--- NOTE | 2023-06-08 09:34 | ONC.NURNOTE ---
states diagnosed with a ear infection last week. using drops. states clearing up . pain improved alot.
[2023-06-08] MEDS: ONDANSETRON 2 MG/ML inj 8 MG IV (10:33)
[2023-06-08] MEDS: dexAMETHasone 20 MG in 0.9 % SODIUM CHLORIDE 100 ml 100 ML 408 MG IVPB (10:33)
[2023-06-08] MEDS: diphenhydrAMINE 50 MG in 0.9 % SODIUM CHLORIDE 100 ml 100 ML 404 MG IVPB (10:53)
[2023-06-08] MEDS: HEPARIN 500 UNIT/5 ML SYRINGE IVF (10:54)
[2023-06-08] MEDS: 0.9 % SODIUM CHLORIDE 250 ml IV (10:54)
[2023-06-08] MEDS: SODIUM CHLORIDE 0.9 % (FLUSH) 10 ML SYRINGE IVF (10:54)
[2023-06-08] MEDS: OBINUTUZUMAB 1,000 MG, TUBING PRIMARY 1 EACH in 0.9 % SODIUM CHLORIDE 250 ml 250 ML 25 MG IVPB (11:14)
[2023-06-08 12:07] LABS: Lactate Dehydrogenase* 267 U/L (120-246)
[2023-06-09 08:04] VITALS: BP 99/67; PULSE 62; RESP 16; TEMP 36.5; O2SAT 100
[2023-06-09] MEDS: ONDANSETRON 2 MG/ML inj 8 MG IV (08:19)
[2023-06-09] MEDS: 0.9 % SODIUM CHLORIDE 250 ml IV (08:19)
[2023-06-09] MEDS: dexAMETHasone 20 MG in 0.9 % SODIUM CHLORIDE 100 ml 100 ML 408 MG IVPB (08:19)
[2023-06-09] MEDS: HEPARIN 500 UNIT/5 ML SYRINGE IVF (08:20)
[2023-06-09] MEDS: SODIUM CHLORIDE 0.9 % (FLUSH) 10 ML SYRINGE IVF (08:20)
[2023-07-06 09:52] LABS: Basophils Percent Auto 0.5 % (0.0-3.0); Hematocrit 37.7 % (37.0-53.0); Hemoglobin* 12.4 gm/dL (13.5-17.5); Immature Granulocytes Pct Auto 0.5 %; Lymphocytes Percent Auto 54.1 % (20-44); Mean Corpuscular HGB Conc 33 gm/dL (32-36); Mean Corpuscular Hemoglobin 29 pg (26-34); Mean Corpuscular Volume 89 fL (80-100); Monocytes Percent Auto 30.9 % (0.0-11.0); Platelet Count* 124 K/uL (140-440); RDW Coefficient of Variation % 14.9 % (11.5-15.5); Red Blood Count 4.26 m/uL (4.30-5.90)
[2023-07-06 10:05] LABS: Albumin* 4.3 g/dL (3.3-5.0); Chloride* 108 mmol/L (96-114)
[2023-07-06 10:06] LABS: Potassium* 4.6 mmol/L (3.6-5.1); Sodium* 139 mmol/L (135-149)
[2023-07-06 10:08] LABS: Bilirubin Total* 0.5 mg/dL (0.1-1.5); Creatinine* 0.9 mg/dL (0.5-1.5); Est. Creatinine Clearance* 81.91; Estimated Glomerular Filt Rate 95 ml/min
[2023-07-06 10:09] LABS: Alanine Aminotransferase* 25 U/L (4-50); Alkaline Phosphatase* 87 U/L (40-150); Anion Gap 7 mEq/L (7-15); Aspartate Amino Transferase* 33 U/L (12-35); Blood Urea Nitrogen* 26 mg/dL (7-30); Carbon Dioxide* 24 mmol/L (20-32); Glucose* 96 mg/dL (60-115); Lactate Dehydrogenase* 229 U/L (120-246); Slide Review Reflex Yes; Total Protein* 6.4 g/dL (6.0-8.3); White Blood Count* 1.94 K/uL (4.50-11.00)
[2023-07-06 10:14] LABS: Slide Review Acceptable Review (Acceptable)
[2023-07-14 08:17] VITALS: BP 98/61; PULSE 54; RESP 16; TEMP 36.1; O2SAT 99
[2023-07-14 08:21] LABS: Basophils Percent Auto 0.8 % (0.0-3.0); Eosinophils Percent Auto 0.4 % (0.0-7.0); Hematocrit 40.2 % (37.0-53.0); Hemoglobin* 13.3 gm/dL (13.5-17.5); Immature Granulocytes Pct Auto 1.6 %; Lymphocytes Percent Auto 40.7 % (20-44); Mean Corpuscular HGB Conc 33 gm/dL (32-36); Mean Corpuscular Hemoglobin 29 pg (26-34); Mean Corpuscular Volume 88 fL (80-100); Monocytes Percent Auto 23.5 % (0.0-11.0); Platelet Count* 118 K/uL (140-440); RDW Coefficient of Variation % 14.1 % (11.5-15.5); Red Blood Count 4.56 m/uL (4.30-5.90); White Blood Count* 2.43 K/uL (4.50-11.00)
[2023-07-14 08:31] LABS: Slide Review Reflex No
[2023-07-21 08:32] VITALS: BP 112/75; PULSE 50; RESP 16; TEMP 35.9; O2SAT 100
[2023-07-21 09:38] LABS: Albumin* 4.2 g/dL (3.3-5.0); Chloride* 107 mmol/L (96-114)
[2023-07-21 09:39] LABS: Potassium* 4.3 mmol/L (3.6-5.1); Sodium* 140 mmol/L (135-149)
[2023-07-21 09:41] LABS: Anion Gap 7 mEq/L (7-15); Aspartate Amino Transferase* 31 U/L (12-35); Bilirubin Total* 0.4 mg/dL (0.1-1.5); Carbon Dioxide* 26 mmol/L (20-32); Est. Creatinine Clearance* 81.91; Estimated Glomerular Filt Rate 84 ml/min; Total Protein* 6.5 g/dL (6.0-8.3)
[2023-07-21 09:42] LABS: Alanine Aminotransferase* 25 U/L (4-50); Alkaline Phosphatase* 78 U/L (40-150); Blood Urea Nitrogen* 19 mg/dL (7-30); Calcium* 9.2 mg/dL (8.4-10.6); Glucose* 106 mg/dL (60-115)
[2023-07-21 10:02] LABS: Basophils Percent Auto 0.7 % (0.0-3.0); Eosinophils Percent Auto 0.3 % (0.0-7.0); Hematocrit 39.9 % (37.0-53.0); Hemoglobin* 13.2 gm/dL (13.5-17.5); Immature Granulocytes Pct Auto 4.8 %; Lymphocytes Percent Auto 34.5 % (20-44); Mean Corpuscular HGB Conc 33 gm/dL (32-36); Mean Corpuscular Hemoglobin 29 pg (26-34); Mean Corpuscular Volume 88 fL (80-100); Monocytes Percent Auto 17.9 % (0.0-11.0); Neutrophils Percent Auto 41.8 % (42.0-72.0); Platelet Count* 113 K/uL (140-440); RDW Coefficient of Variation % 13.5 % (11.5-15.5); Red Blood Count 4.52 m/uL (4.30-5.90); Slide Review Reflex No
[2023-07-21] MEDS: 0.9 % SODIUM CHLORIDE 250 ml IV (11:25)
[2023-07-21] MEDS: SODIUM CHLORIDE 0.9 % (FLUSH) 10 ML SYRINGE IVF ×2 (11:25→15:03)
[2023-07-21] MEDS: ACETAMINOPHEN 325 MG TABLET 975 MG PO (11:27)
[2023-07-21] MEDS: diphenhydrAMINE 50 MG in 0.9 % SODIUM CHLORIDE 100 ml 100 ML 420 MG IVPB (11:48)
[2023-07-21] MEDS: ONDANSETRON 2 MG/ML inj 8 MG IV (11:50)
[2023-07-21] MEDS: dexAMETHasone 20 MG in 0.9 % SODIUM CHLORIDE 100 ml 100 ML 420 MG IVPB (12:05)
[2023-07-21] MEDS: OBINUTUZUMAB 1,000 MG, TUBING PRIMARY 1 EACH in 0.9 % SODIUM CHLORIDE 250 ml 250 ML 25 MG IVPB (12:46)
[2023-07-21 13:20] VITALS: BP 97/63; PULSE 50; RESP 16; TEMP 37.2; O2SAT 99
--- NOTE | 2023-07-21 13:27 | ONC.NURNOTE ---
Treatment nurse Leslie brought chart to discuss patient's loan processing supervisor report with oncologist. Patient had EF of 30% and it has decreased since first one checked to 20-25%. Dr. Swanson consulted regarding if they can move forward with chemo today knowing this. Dr. Swanson reports this chemo not to be cardiotoxic and would like patient to talk with loan processing supervisor and let them know she would be happy to talk with them if needed. At this point Bendamustine dose decreased due to ANC and patient to have his chemo as scheduled today.
[2023-07-21] MEDS: HEPARIN 500 UNIT/5 ML SYRINGE IVF (15:03)
[2023-07-22 13:05] VITALS: BP 105/68; PULSE 52; RESP 16; TEMP 36.4; O2SAT 100
[2023-07-22] MEDS: dexAMETHasone 20 MG in 0.9 % SODIUM CHLORIDE 100 ml 100 ML 408 MG IVPB (13:34)
[2023-07-22] MEDS: ONDANSETRON 2 MG/ML inj 8 MG IV (13:34)
[2023-07-22] MEDS: HEPARIN 500 UNIT/5 ML SYRINGE IVF (14:18)
[2023-07-22] MEDS: SODIUM CHLORIDE 0.9 % (FLUSH) 10 ML SYRINGE IVF (14:18)
--- NOTE | 2023-07-22 14:40 | ONC.NURNOTE ---
Pt here for day2 Bendamustine. VSS. Pt viewed neulasta onpro video and written instructions given. Pt verbalized understanding of plan of care.
[2023-08-18 07:52] LABS: Basophils Percent Auto 0.5 % (0.0-3.0); Eosinophils Percent Auto 8.2 % (0.0-7.0); Hematocrit 40.4 % (37.0-53.0); Hemoglobin* 13.3 gm/dL (13.5-17.5); Immature Granulocytes Pct Auto 1.1 %; Lymphocytes Percent Auto 27.5 % (20-44); Mean Corpuscular HGB Conc 33 gm/dL (32-36); Mean Corpuscular Hemoglobin 29 pg (26-34); Mean Corpuscular Volume 88 fL (80-100); Monocytes Percent Auto 28.6 % (0.0-11.0); Neutrophils Percent Auto 34.1 % (42.0-72.0); Platelet Count* 127 K/uL (140-440); RDW Coefficient of Variation % 13.6 % (11.5-15.5); Red Blood Count 4.58 m/uL (4.30-5.90)
[2023-08-18 08:04] LABS: Albumin* 4.4 g/dL (3.3-5.0); Chloride* 105 mmol/L (96-114)
[2023-08-18 08:05] LABS: Potassium* 4.4 mmol/L (3.6-5.1); Sodium* 140 mmol/L (135-149)
[2023-08-18 08:07] LABS: Alkaline Phosphatase* 106 U/L (40-150); Anion Gap 8 mEq/L (7-15); Aspartate Amino Transferase* 36 U/L (12-35); Bilirubin Total* 0.3 mg/dL (0.1-1.5); Blood Urea Nitrogen* 25 mg/dL (7-30); Carbon Dioxide* 27 mmol/L (20-32); Est. Creatinine Clearance* 81.91; Estimated Glomerular Filt Rate 84 ml/min; Total Protein* 6.6 g/dL (6.0-8.3)
[2023-08-18 08:08] LABS: Alanine Aminotransferase* 31 U/L (4-50); Calcium* 9.1 mg/dL (8.4-10.6); Glucose* 79 mg/dL (60-115)
[2023-08-18 08:15] LABS: Slide Review Reflex Yes; White Blood Count* 1.82 K/uL (4.50-11.00)
[2023-08-18 09:39] LABS: Slide Review Acceptable Review (Acceptable)
--- NOTE | 2023-08-18 15:35 | URNOTE ---
Bendamustine (J9034) approved for 4 treatments Obinutuzumab (J9301) approved for 2 treatments Pegfilgrastim (J2506) approved for 2 treatments Dexamethasone and Odansetron do not need prior authorization. Order ID [id number]. valid 08/18/2023-10/13/2023
[2023-08-19 15:47] VITALS: BP 107/73; PULSE 50; RESP 14; TEMP 36.1; O2SAT 98
[2023-08-19] MEDS: FILGRASTIM SNDZ 480 MCG/0.8 ML SUBCUT (15:49)
--- NOTE | 2023-08-19 16:02 | ONC.NURNOTE ---
Patient needing a peer to peer but phone call was lost. Access Liaison called back and Ela (Q5101) authorized from August 19 thru November 2023. Prior Authorization number [id number]
--- NOTE | 2023-08-20 10:41 | URNOTE ---
Request received for Devon (Q5101), approved for 12 treatments, Order ID [id number]. Date range: 08/19/2023-12/09/2023.
[2023-08-20 15:08] VITALS: BP 105/72; PULSE 52; RESP 16; TEMP 35.6; O2SAT 97
[2023-08-20] MEDS: FILGRASTIM SNDZ 480 MCG/0.8 ML SUBCUT (15:10)
[2023-08-21 14:41] VITALS: BP 99/60; PULSE 60; RESP 16; TEMP 36.1; O2SAT 99
[2023-08-21] MEDS: FILGRASTIM SNDZ 480 MCG/0.8 ML SUBCUT (14:47)
[2023-08-25 08:13] LABS: Basophils Percent Auto 0.4 % (0.0-3.0); Eosinophils Percent Auto 5.4 % (0.0-7.0); Hemoglobin* 14.1 gm/dL (13.5-17.5); Immature Granulocytes Pct Auto 10.9 %; Mean Corpuscular HGB Conc 33 gm/dL (32-36); Mean Corpuscular Hemoglobin 29 pg (26-34); Mean Corpuscular Volume 88 fL (80-100); Monocytes Percent Auto 32.2 % (0.0-11.0); Neutrophils Percent Auto 28.1 % (42.0-72.0); Platelet Count* 99 K/uL (140-440); RDW Coefficient of Variation % 14.3 % (11.5-15.5); Red Blood Count 4.89 m/uL (4.30-5.90); White Blood Count* 2.39 K/uL (4.50-11.00)
[2023-08-25 08:17] LABS: Slide Review Reflex Yes
[2023-08-25 08:34] LABS: Albumin* 4.5 g/dL (3.3-5.0); Chloride* 103 mmol/L (96-114); Potassium* 4.7 mmol/L (3.6-5.1); Sodium* 139 mmol/L (135-149)
[2023-08-25 08:36] LABS: Creatinine* 1.1 mg/dL (0.5-1.5); Est. Creatinine Clearance* 74.46; Estimated Glomerular Filt Rate 75 ml/min
[2023-08-25 08:37] LABS: Alanine Aminotransferase* 37 U/L (4-50); Alkaline Phosphatase* 77 U/L (40-150); Anion Gap 10 mEq/L (7-15); Aspartate Amino Transferase* 52 U/L (12-35); Bilirubin Total* 0.4 mg/dL (0.1-1.5); Blood Urea Nitrogen* 24 mg/dL (7-30); Calcium* 9.2 mg/dL (8.4-10.6); Carbon Dioxide* 26 mmol/L (20-32); Glucose* 58 mg/dL (60-115); Lactate Dehydrogenase* 401 U/L (120-246); Slide Review Acceptable Review (Acceptable); Total Protein* 6.8 g/dL (6.0-8.3)
[2023-08-25 08:49] VITALS: BP 99/68; PULSE 54; RESP 16; TEMP 36.5; O2SAT 96
--- NOTE | 2023-08-25 10:03 | PC.NURSE ---
Addendum entered by Leslie La RN 08/25/23 12:16: Dr. Swanson reviewed plan as detailed below. ok'd 3 doses of Zarxio (Thu, , Thu) and asked that labs be re-drawn on Thursday this week. She will review lab results on Thursday and decide re: Thursday treatment at that time. Pt called and updated. Appointments updated. Addendum entered by Leslie La RN 08/25/23 11:52: spelling correction: Zarxio (not Xarzio) Original Note: Pt present in [facility] today for labs and treatment. See lab results. Pt's ANC and plt low and pt doesn't meet treatment parameters. Discussed case wtih Dr. Swanson and ordered to hold tx today. ordered the following: GCSF 480 mcg daily x 4 starting today. Repeat labs on Thursday (CBC, CMP, LDH). Treat on Thursday if labs ok. Contacted pharmacy and they have no Xarzio available. This was the only GCSF approved by pt's insurance. Khai scheduled for 3 doses this week, labs Thursday, and treatment Thursday. Will run by Dr. Swanson to see if she would like the 4th dose given on Thursday or Thursday or just omit and give 3 doses. Will call pt with update once decision made.
[2023-08-26 14:59] VITALS: BP 109/71; PULSE 48; RESP 16; TEMP 36.1; O2SAT 97
[2023-08-26] MEDS: FILGRASTIM SNDZ 480 MCG/0.8 ML SUBCUT (15:08)
[2023-08-27] MEDS: FILGRASTIM SNDZ 480 MCG/0.8 ML SUBCUT (14:50)
[2023-08-28 14:51] VITALS: BP 110/79; PULSE 50; RESP 16; TEMP 36.9; O2SAT 100
[2023-08-28 15:25] LABS: Basophils Percent Auto 0.1 % (0.0-3.0); Eosinophils Percent Auto 1.1 % (0.0-7.0); Hematocrit 43.8 % (37.0-53.0); Hemoglobin* 14.4 gm/dL (13.5-17.5); Immature Granulocytes Pct Auto 13.7 %; Lymphocytes Percent Auto 4.4 % (20-44); Mean Corpuscular HGB Conc 33 gm/dL (32-36); Mean Corpuscular Hemoglobin 29 pg (26-34); Mean Corpuscular Volume 88 fL (80-100); Monocytes Percent Auto 6.1 % (0.0-11.0); Neutrophils Percent Auto 74.6 % (42.0-72.0); Platelet Count* 95 K/uL (140-440); RDW Coefficient of Variation % 14.3 % (11.5-15.5); Red Blood Count 4.98 m/uL (4.30-5.90); White Blood Count* 15.51 K/uL (4.50-11.00)
[2023-08-28] MEDS: FILGRASTIM SNDZ 480 MCG/0.8 ML SUBCUT (15:31)
[2023-08-28 15:41] LABS: Albumin* 4.7 g/dL (3.3-5.0)
[2023-08-28 15:42] LABS: Chloride* 103 mmol/L (96-114); Potassium* 4.8 mmol/L (3.6-5.1); Sodium* 138 mmol/L (135-149)
[2023-08-28 15:43] LABS: Slide Review Reflex Yes
[2023-08-28 15:44] LABS: Alkaline Phosphatase* 85 U/L (40-150); Anion Gap 6 mEq/L (7-15); Aspartate Amino Transferase* 48 U/L (12-35); Bilirubin Total* 0.3 mg/dL (0.1-1.5); Blood Urea Nitrogen* 25 mg/dL (7-30); Carbon Dioxide* 29 mmol/L (20-32); Creatinine* 1.2 mg/dL (0.5-1.5); Est. Creatinine Clearance* 68.26; Estimated Glomerular Filt Rate 68 ml/min; Total Protein* 7.1 g/dL (6.0-8.3)
[2023-08-28 15:45] LABS: Alanine Aminotransferase* 26 U/L (4-50); Calcium* 9.5 mg/dL (8.4-10.6); Glucose* 105 mg/dL (60-115); Lactate Dehydrogenase* 778 U/L (120-246)
[2023-08-28 17:07] LABS: Slide Review Acceptable Review (Acceptable)
--- NOTE | 2023-08-31 13:24 | ONC.NURNOTE ---
Labs done on patient 08/28 and noted were platelets at 95,000 and treatment parameters are above 100,000. Patient with labs 4 days prior to treatment and Dr. Swanson reviewed labs including platelets and LDH and wants patient treated and then back for repeat LDH on 09/08/23.
[2023-09-01 08:00] VITALS: BP 102/69; PULSE 48; RESP 16; TEMP 35.8; O2SAT 98
[2023-09-01] MEDS: ACETAMINOPHEN 325 MG TABLET 975 MG PO (09:15)
[2023-09-01] MEDS: dexAMETHasone 20 MG in 0.9 % SODIUM CHLORIDE 100 ml 100 ML 408 MG IVPB (09:34)
[2023-09-01] MEDS: ONDANSETRON 2 MG/ML inj 8 MG IV (09:34)
[2023-09-01] MEDS: diphenhydrAMINE 50 MG in 0.9 % SODIUM CHLORIDE 100 ml 100 ML 404 MG IVPB (09:58)
[2023-09-01] MEDS: OBINUTUZUMAB 1,000 MG, TUBING PRIMARY 1 EACH in 0.9 % SODIUM CHLORIDE 250 ml 250 ML 25 MG IVPB (10:32)
[2023-09-01 11:06] VITALS: BP 92/62; PULSE 47; RESP 16; TEMP 36.5; O2SAT 97
[2023-09-01 12:28] VITALS: BP 90/58; PULSE 47; RESP 16; TEMP 36.3; O2SAT 97
[2023-09-02 08:32] VITALS: BP 103/70; PULSE 48; RESP 16; TEMP 35.5; O2SAT 100
[2023-09-02 08:33] VITALS: BP 103/70; PULSE 48; RESP 16; TEMP 35.5; O2SAT 100
[2023-09-02] MEDS: ONDANSETRON 2 MG/ML inj 8 MG IV (09:13)
[2023-09-02] MEDS: dexAMETHasone 20 MG in 0.9 % SODIUM CHLORIDE 100 ml 100 ML 408 MG IVPB (09:13)
[2023-09-02] MEDS: 0.9 % SODIUM CHLORIDE 250 ml IV (09:14)
--- NOTE | 2023-09-08 08:40 | ONC.NURNOTE ---
Addendum entered by Barb Martin RN 09/08/23 12:55: At home covid test negative. Pt came into [facility] for LDH recheck and BMP(ordered by [facility]). Pt denies any fevers, chills, states cough is from nasal drainage. Still has scratchy sore throat. Discussed symptoms with Anya Montoya APRN. Pt instructed to be seen by a provider immediately if he develops a fever, chills, or any symptoms of infection or if symptoms worsen. Pt also encouraged to call [facility] if he has any concerns or questions. Pt verbalized understanding of plan of care. Original Note: Pt called this morning, pt states he has a blood draw this afternoon in [facility]. Pt states he is concerned because he woke up with a congestion, sore throat, and cough. Pt wondering if he should have his blood drawn in an alternate location. Custom Designer instructed pt to take a home covid test and call [facility] back with results to determine plan of care. Pt verbalized understanding.
[2023-09-08 11:16] LABS: Chloride* 102 mmol/L (96-114); Potassium* 4.4 mmol/L (3.6-5.1); Sodium* 138 mmol/L (135-149)
[2023-09-08 11:18] LABS: Creatinine* 0.9 mg/dL (0.5-1.5); Est. Creatinine Clearance* 81.91; Estimated Glomerular Filt Rate 95 ml/min; Lactate Dehydrogenase* 616 U/L (120-246)
[2023-09-08 11:19] LABS: Anion Gap 8 mEq/L (7-15); Blood Urea Nitrogen* 17 mg/dL (7-30); Calcium* 9.1 mg/dL (8.4-10.6); Carbon Dioxide* 28 mmol/L (20-32); Glucose* 109 mg/dL (60-115)
[2023-09-21 08:49] LABS: Basophils Percent Auto 0.7 % (0.0-3.0); Eosinophils Percent Auto 4.6 % (0.0-7.0); Hematocrit 42.5 % (37.0-53.0); Hemoglobin* 13.8 gm/dL (13.5-17.5); Immature Granulocytes Pct Auto 4.9 %; Lymphocytes Percent Auto 21.1 % (20-44); Mean Corpuscular HGB Conc 33 gm/dL (32-36); Mean Corpuscular Hemoglobin 29 pg (26-34); Mean Corpuscular Volume 89 fL (80-100); Monocytes Percent Auto 20.8 % (0.0-11.0); Neutrophils Percent Auto 47.9 % (42.0-72.0); Platelet Count* 144 K/uL (140-440); RDW Coefficient of Variation % 14.6 % (11.5-15.5); Red Blood Count 4.77 m/uL (4.30-5.90); White Blood Count* 2.84 K/uL (4.50-11.00)
[2023-09-21 08:52] LABS: Potassium* 4.7 mmol/L (3.6-5.1); Sodium* 143 mmol/L (135-149)
[2023-09-21 08:53] LABS: Anion Gap 11 mEq/L (7-15); Carbon Dioxide* 27 mmol/L (20-32); Chloride* 105 mmol/L (96-114)
[2023-09-21 08:54] LABS: Slide Review Reflex No
[2023-09-21 09:04] LABS: Albumin* 4.4 g/dL (3.3-5.0)
[2023-09-21 09:07] LABS: Alanine Aminotransferase* 24 U/L (4-50); Alkaline Phosphatase* 108 U/L (40-150); Aspartate Amino Transferase* 35 U/L (12-35); Bilirubin Total* 0.4 mg/dL (0.1-1.5); Blood Urea Nitrogen* 18 mg/dL (7-30); Calcium* 9.1 mg/dL (8.4-10.6); Est. Creatinine Clearance* 81.91; Estimated Glomerular Filt Rate 84 ml/min; Glucose* 90 mg/dL (60-115); Total Protein* 6.7 g/dL (6.0-8.3)
[2023-09-21 09:34] LABS: Lactate Dehydrogenase* 377 U/L (120-246)
--- NOTE | 2023-09-23 13:54 | ONC.NURNOTE ---
PET scheduled for 11/12/23 at 4:15. Patient prefers to have IV placed instead of port accessed. Order and documentation faxed to [facility].
== END 2023-09-28 23:59 | disposition home or self-care (01) ==
LOC: CCIC 08:24
PROVIDERS: Clinical Nurse Specialist; PCP Family Medicine; Referring Provider Family Medicine; Visit Provider Internal Medicine Hematology & Oncology
DX: C82.30 Follicular lymphoma grade IIIa, unspecified site (principal)
CPT/HCPCS: 36415; 36591; 80048; 80053; 82232; 83615; 84443; 84550; 85025; 86704; 87340; 96360; 96372; 96376; 96377; 96409; 96411; 96413; 96415; 99202; 99205; 99211; 99212; 99214; 99215; G0463; J2506; A9270; J1100; J1200; J1642; J2405; J7030; J7050; J9034; J9301; Q5101

== ENCOUNTER 2023-11-12 15:45 | Outpatient (CLI) | payer BC, SELFPAY ==
--- NOTE | 2023-11-12 16:15 | PE_ITS ---
[facility] [address] [facility] [address] Phone:?[phone] Fax:?[phone] Referring Physician Information: Bailey Swanson M.D. [address] [facility] [address] Phone:?[phone] Fax:?[phone] Patient:Penny Campos D.O.B:?1960 Sex:?Male Phone:?[phone] [facility] MRN:[id number] Exam Date:?11/12/2023 EXAM: PET/CT EYES TO THIGHS, CANCER RESTAGING CLINICAL INFORMATION: Follicular lymphoma, restaging. TECHNICAL INFORMATION: Helical acquisition of data was obtained from the orbits to the upper thighs with reconstruction of 3.75 mm thick images at 3.[address] data was used for attenuation correction. PET scanning was performed through the same anatomic range 56 minutes following administration of 11.73 mCi of 18-FDG delivered intravenously. The patient's glucose at the time of the injection was 69 mg/dL. PET, CT and PET/CT fusion images are interpreted using a computer viewing workstation. PET, CT and PET/CT fusion images were archived and saved in the patient's permanent medical record. COMPARISON: PET-CTs from 06/25/2023 and 03/30/2023. INTERPRETATION: Head and Neck: There are no abnormal hypermetabolic foci within the head or neck. There is physiologic uptake in the intracranial soft tissues. Multiple nonenlarged lymph nodes are present throughout the neck, bilaterally, consistent with treated/quiescent disease. No pathologic lymphadenopathy in terms of size, morphology, or metabolic rate. Chest: There are no abnormal hypermetabolic foci within the chest. Background mediastinal blood pool uptake has a maximum SUV of 2.30. No lung nodules or masses detected on this free-breathing exam. No intrathoracic lymphadenopathy in terms of size, morphology, or metabolic rate; previously indexed subcarinal and axillary nodes are no longer enlarged or hypermetabolic. Right chest port catheter terminates at the cavoatrial junction. Abdomen and Pelvis: There are no abnormal hypermetabolic foci within the abdomen or pelvis. Background hepatic parenchymal uptake has a maximum SUV of 2.93. Splenic parenchymal uptake has a maximum SUV of 2.29. There is physiologic excretion of radiotracer in the urine and bowel. No abdominopelvic lymphadenopathy in terms of size, morphology, or metabolic rate; previously indexed portocaval, retroperitoneal, and pelvic nodes are no longer enlarged or hypermetabolic. Prior splenomegaly has resolved. The right ureter is moderately ectatic; urolithiasis or other visible cause for obstruction. Skeleton, Musculature, and Integument: No abnormal hypermetabolic foci within the skeleton. No sofiya osteoblastic or osteolytic disease. CONCLUSION: 1. Stable exam. No evidence of metabolically active lymphoma. Prior lymphadenopathy and splenomegaly have resolved. Findings indicate complete response to therapy. Deauville score is 1. 2. The right ureter is moderately ectatic; urolithiasis or other visible cause for obstruction. Recommend correlation with urinalysis and consider CT urogram if warranted. Electronically signed on 11/13/2023 4:00:00 PM by Chano Rainey M.D.
== END 2023-11-12 15:46 | disposition home or self-care (01) ==
LOC: RAD 15:45
PROVIDERS: PCP Family Medicine; Visit Provider Internal Medicine Hematology & Oncology
DX: C82.30 Follicular lymphoma grade IIIa, unspecified site (principal)
CPT/HCPCS: 78815; A9552

== ENCOUNTER 2023-12-31 10:18 | Outpatient (CLI) | payer BC, SELFPAY ==
--- OUTSIDE RECORDS SUMMARY | 2023-12-31 10:20 | XMS_ITS | Clinical Summary ---
Author Name Unknown Organization [employer] Address [place], [place] [address] Care Team Providers Care Car Refinisher Name Role Phone Pcp, No Unavailable Unavailable Mehul Schmidt MD Primary Care Provider Ayad Ann MD Unavailable [phone] Nurses, Advanced Heart Failure Unavailable + Allergies No known active allergies Medications Medication Sig Dispensed Refills Start Date End Date Status sildenafil citrate (VIAGRA) 50 mg tabletIndications:Erec tile dysfunction, unspecified erectile dysfunction type Take 1 Tablet (50 mg) by mouth once daily if needed for Erectile Dysfunction. Take 30min to 4 hours before sexual activity. Max 100mg/24hr 10 Tablet 6 07/15/2022 Active ibuprofen (ADVIL; MOTRIN) 200 mg tablet Take 200 mg by mouth every 4 hours if needed for Pain. 04/01/2023 Active metoprolol succinate (TOPROL XL) 25 mg Sustained-Release tabletIndications:Card iomyopathy, unspecified type (HC) Take 0.5 Tablets (12.5 mg) by mouth once daily. 15 Tablet 11 07/14/2023 Active dapagliflozin propanediol (Farxiga) 10 mg tabletIndications:Card iomyopathy, unspecified type (HC) Take 1 Tablet (10 mg) by mouth once daily. 90 Tablet 2 09/08/2023 Active spironolactone (ALDACTONE) 25 mg tabletIndications:Card iomyopathy, unspecified type (HC) Take 1 Tablet (25 mg) by mouth once daily. 90 Tablet 1 09/23/2023 Active apixaban (Eliquis) 5 mg tabletIndications:Left ventricular apical thrombus,Hyperlipidemi a, unspecified hyperlipidemia type Take 1 Tablet (5 mg) by mouth two times daily. 180 Tablet 1 10/19/2023 Active sacubitril-valsartan (ENTRESTO 49 MG-51 MG TABLET) 49-51 mg tabletIndications:Card iomyopathy, unspecified type (HC) Take 1 Tablet by mouth two times daily. 180 Tablet 1 11/06/2023 Active atorvastatin (Lipitor) 40 mg tabletIndications:Hype rlipidemia, unspecified hyperlipidemia type Take 1 Tablet (40 mg) by mouth at bedtime. 90 Tablet 1 11/09/2023 Active Active Problems Problem Noted Date Diagnosed Date Grade 3a follicular lymphoma; 03/20/2023 3 Acute eczema 07/15/2022 Hyperlipidemia 02/22/2021 Benign essential HTN 02/22/2021 Overweight 02/22/2021 Prediabetes 08/17/2020 Encounters Date Type Department Care Team Description 12/04/2023 Orders Only [facility] Staff, Other Clinical 1 scan: (1-Ord) [facility] 11/18/2023 4:00 PM CDT Office Visit [facility] [place] [address] Ayad Ann MD CV Heart Failure Est (F/u per Otilia, review MRI and labs. ) 11/18/2023 Travel 11/15/2023 Travel 11/12/2023 7:00 AM CDT Orders Only [facility] [address] [place] [address] Lab, [place] 11/12/2023 Orders Only [facility] Scanner 1 scan: (1-Ord) [facility], PET SKULL TO MID THIGH, 11/12/2023 11/12/2023 Telephone [facility] [address] [facility] [address] [place] [address] Ayad Ann MD Follow Up (Titrating Sacubitril/Valsarta n (Entresto)/) 11/11/2023 Travel 10/29/2023 1:45 PM CDT Orders Only [facility] [address] [place] [address] Lab, [place] [facility] 10/29/2023 Travel 10/14/2023 Telephone [facility] [address] [place] [address] Ayad Ann MD Cardiology Appointment 10/14/2023 Telephone [facility] [address] [place] [address] Ayad Ann MD Follow Up (Spironolactone follow up) 10/09/2023 11:15 AM OUTDOOR STUDIES PROFESSOR Orders Only [facility] [address] [place] [address] Lab, [place] [facility] 10/08/2023 6:17 AM OUTDOOR STUDIES PROFESSOR - 10/08/2023 11:59 PM OUTDOOR STUDIES PROFESSOR Hospital Encounter [facility] [address] [place] [address] Ayad Ann MD Cardiomyopathy, unspecified type (HC) 10/08/2023 Travel from Last 3 Months Immunizations Name Administration Dates Next Due Influenza Virus, Unspecified 07/17/2017 Tdap 02/22/2021,11/28/2010 Zoster (Shingrix-RZV, recombinant) 05/04/2020, Family History Medical History Relation Name Comments Stroke Father Dementia Mother Glaucoma Mother Hypothyroidism Mother Cancer-colon No Family History Cancer-prostate No Family History Diabetes No Family History Heart Disease No Family History Relation Name Status Comments Father Mother Social History Tobacco Use Types Packs/Day Years Used Date Smoking Tobacco: Former Cigarettes Q uit: 11/06/1997 Pipe Smokeless Tobacco: Former Chew Quit: 11/06/1997 Tobacco Cessation:Counseling Given: Yes Alcohol Use Standard Drinks/Week Comments Yes 4 (1 standard drink = 0.6 oz pur e alcohol) PHQ-2 Answer Date Recorded PHQ-2 TOTAL SCORE 0 03/12/2022 Social Connections Answer Date Recorded Frequency of Communication with Friends and Fami ly 0 06/05/2023 Financial Resource Strain Answer Date R ecorded Difficulty of Paying Living Expenses 3 06/05/2023 Difficulty of Paying Living Expenses Not on file 06/05/2023 Food Insecurity Answer Date Recorded Worried About Running Out of Food in the Last Ye ar 1 06/05/2023 Transportation Needs Answer Date Record ed Lack of Transportation (Medical) 1 06/05/2023 Housing Stability Answer Date Recorded Unable to Pay for Housing in the Last Year 1 06/05/2023 Sex and Gender Information Value Date Recorded Sex Assigned at Not on file Gender Identity Not on file Sexual Orientation Not on file Obstetrics History Last Filed Vital Signs Vital Sign Reading Time Taken Comments Blood Pressure 112/76 11/18/2023 3:54 PM CDT Pulse 52 11/18/2023 3:54 PM CDT Temperature 36.4 ??C (97.6 ??F) 09/10/2023 8:40 AM CS T Respiratory Rate 18 09/10/2023 8:40 AM OUTDOOR STUDIES PROFESSOR Oxygen Saturation 100% 11/18/2023 3:54 PM CDT Inhaled Oxygen Concentration - - Weight 90.7 kg (200 lb) 11/18/2023 3:54 PM CDT Height 181.8 cm (5' 11.58) 11/18/2023 3:54 PM C DT Body Mass Index 27.45 11/18/2023 3:54 PM CDT Plan of Treatment Health Maintenance Due Date Last Done Comments Pneumococcal series for age 6-64 (1 of 2 - PCV) 1966 Colonoscopy through age 75 02/16/2004 COVID-19 vaccine series (3 - Moderna risk series) 07/12/2021 06/14/2021, 05/13/2021 Depression screening for age 12+ 03/12/2023 03/12/2022, 02/22/2021, 01/27/2020, Additional history exists Influenza for age 50-64 04/17/2024 07/17/2017 BMI (ht and wt on same day) for age 18+ 11/17/2024 11/18/2023, 08/13/2023, 03/10/2023, Additional history exists Lipids for age 45-75 03/10/2028 03/10/2023, 07/15/2022, 03/12/2022, Additional history exists Tetanus booster 02/22/2031 02/22/2021, 11/28/2010 Zoster (shingles) series for age 50+ Completed 05/04/2020, 01/27/2020 Hepatitis C screening for ag e 18-79 Completed 02/22/2021 Tdap Completed 02/22/2021, 11/28/2010 HIV for age 15-65 Completed 07/15/2022 Procedures Procedure Name Priority Date/Time Associated Diagnosis Comments SCAN CORRESP-LABORATOR Y RESULTS 12/04/2023 1:36 PM CDT EKG 12 LEAD Routine 11/18/2023 4:11 PM CDT Cardiomyopathy, unspecified type (HC) BASIC METABOLIC PANEL Routine 11/12/2023 7:02 AM CDT Cardiomyopathy, unspecified type (HC) SCAN-PET SCAN 11/12/2023 12:00 AM CDT BASIC METABOLIC PANEL Routine 10/29/2023 1:30 PM CDT Left ventricular apical thrombus BASIC METABOLIC PANEL Routine 10/09/2023 10:57 AM OUTDOOR STUDIES PROFESSOR Cardiomyopathy, unspecified type (HC) MR CARDIAC WWO Routine 10/08/2023 8:17 AM OUTDOOR STUDIES PROFESSOR Cardiomyopathy, unspecified type (HC) HEMATOCRIT/HGB,IS TAT Routine 10/08/2023 6:37 AM OUTDOOR STUDIES PROFESSOR LIPID PANEL W REFLEX MEASURED LDL Routine 03/10/2023 9:03 AM CDT Hyperlipidemia, unspecified hyperlipidemia type ANTI HIV 1/2 Routine 07/15/2022 9:49 AM OUTDOOR STUDIES PROFESSOR Screening for HIV (human immunodeficiency virus) ANTI HCV Routine 02/22/2021 8:37 AM CDT Need for hepatitis C screening test from Last 3 Months or Most Recently Relevant to Health Maintenance Results * SCAN CORRESP-LABORATORY RESULTS (12/04/2023 1:36 PM CDT) Narrative 12/04/2023 1:36 PM CDT Ordered by an unspecified provider. Other Clinical Staff OTHER * EKG 12 LEAD (11/18/2023 4:11 PM CDT) Interpretation Sinus bradycardia with sinus arrhythmia with occasional Premature ventricular complexes Left axis deviation Anterolateral infarct (cited on or before 13-AUG-2023) Abnormal ECG When compared with ECG of 13-AUG-2023 10:43, Premature ventricular complexes are now Present Questionable change in initial forces of Lateral leads Nonspecific T wave abnormality no longer evident in Anterior leads Ventricular Rate 50 BPM Atrial Rate 50 BPM P-R Interval 174 ms QRS Duration 98 ms QT 422 ms QTc 384 ms P [place] 63 degrees R [place] -49 degrees T [place] 101 degrees 11/18/2023 4:11 PM CDT 11/19/2023 7:49 AM CDT Ayad Ann MD EKG ORD * (ABNORMAL) BASIC METABOLIC PANEL (11/12/2023 7:02 AM CDT) Only the most recent of3 resultswithin the time period is included. SODIUM 136 136 - 145 mmol/L 11/12/2023 2:58 PM CDT [facility] POTASSIUM 4.8 3.5 - 5.1 mmol/L 11/12/2023 2:58 PM CDT [facility] CHLORIDE 102 98 - 107 mmol/L 11/12/2023 2:58 PM CDT [facility] CO2,TOTAL 22 22 - 29 mmol/L 11/12/2023 2:58 PM CDT [facility] ANION GAP 12 5 - 18 11/12/2023 2:58 PM CDT [facility] GLUCOSE 92 70 - 99 mg/dL 11/12/2023 2:58 PM CDT [facility] CALCIUM 9.2 8.8 - 10.2 mg/dL 11/12/2023 2:58 PM CDT [facility] BUN 32(H) 8 - 23 mg/dL 11/12/2023 2:58 PM CDT [facility] CREATININE 1.21(H) 0.70 - 1.20 mg/dL 11/12/2023 2:58 PM CDT [facility] BUN/CREAT RATIO 26(H) 10 - 20 2:58 PM CDT [facility] eGFR 67(L) >90 mL/min/1.7 3m2 11/12/2023 2:58 PM CDT [facility] Comment:As of 2021, eG FR is calculated by the CKD-EPI creatinine equation without race adjustment. ??eGFR can be influenced by muscle mass, exercise, and diet. ??The reported eGFR is an estimation only and is only applicable if the renal function is stable. Blood BLOOD SPECIMEN / Unknown Venipuncture / Unknown 11/12/2023 7:02 AM CDT 11/12/2023 7:02 AM CDT Ayad Ann MD [facility] [address] [place] [address], * SCAN-PET SCAN (11/12/2023 12:00 AM CDT) Anatomical Region Laterality Modality Other Scanner OTHER * MR CARDIAC WWO (10/08/2023 8:17 AM OUTDOOR STUDIES PROFESSOR) Anatomical Region Laterality Modality HEART, THORAX Magnetic Resonan ce 10/08/2023 7:26 AM OUTDOOR STUDIES PROFESSOR Narrative 10/08/2023 11:03 AM OUTDOOR STUDIES PROFESSOR ?[facility] ? CMR Report ??MRN: ? [id number] ?Name: ? BEAM, KENDRA Reyes ?: ?Scan Date: ?Accession Number: ? [id number] ?Status: ? Final ? Electronically signed by Dick Manning 11:03:50 VITALS ===== HEIGHT: 72 in ?(183 cm) WEIGHT: 196 lbs ?(89 kgs) BSA: 2.11 m^2 FINAL IMPRESSION ===== 1. Ischemic cardiomyopathy resulting from large transmural LAD infarct with severe LV dilation (LVEDVi 184 ml/m2), severe systolic dysfunction (LVEF 25%) with regional wall motion abnormalities including an apical aneurysm. Total scar burden=45%. ? A. Concentric remodeling of the LV with moderate left ventricular hypertrophy and a maximum wall thickness of 1.4 cm in the anteroseptum. Increased LV mass relates to severe LV dilation. ? B. Transmural myocardial infarction in the LAD territory involving the anterior wall, anteroseptum and apical lundberg including true apex with small dense microvascular obstruction (MVO); non-viable myocardium. No myocardial edema. No infiltrative cardiomyopathy with a normal ECV of 25%. ? D. Mixed viability in RCA territory: transmural infarct of the mid inferoseptum and apical inferior wall ? E. ??Viable myocardium in the LCx territory. ? F. 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 2. Mildly enlarged right ventricle with mild global hypokinesis. RVEF 45%. 3. Normal bi-atrial size. No significant valvular heart disease. 4. Normal aortic root and thoracic aorta caliber. SUMMARY ===== LEFT VENTRICLE: Quantitative LVEF 25 %. There is moderate LV hypertrophy. LV cavity is severely enlarged. LV systolic function is regionally impaired. There is a definite LV thrombus. LV mass/thrombus size is 19 mm x 10 mm. There is eccentric LVH. VIABILITY: LV scar size is 43 %. RIGHT VENTRICLE: Quantitative RVEF 45 %. RV wall thickness is normal. RV is mildly enlarged. RV systolic function is mildly decreased globally. There is no RV mass/thrombus. LV/RV SEPTUM: The ventricular septum is intact. LA/RA SEPTUM: The atrial septum is intact. LEFT ATRIUM: LA cavity size is normal. There is no LA mass/thrombus. RIGHT ATRIUM: RA cavity size is normal. There is no RA mass/thrombus. PERICARDIUM: Pericardium is normal. There is no pericardial effusion. PLEURAL EFFUSION: There is no pleural effusion. AORTIC VALVE: There is no aortic regurgitation. MITRAL VALVE: There is no mitral regurgitation. TRICUSPID VALVE: There is no tricuspid regurgitation. PULMONIC VALVE: There is indeterminant pulmonic reguritation. AORTIC ROOT: The aortic root is normal. OTHER FINDINGS: Thoracic aorta ??Left sided arch ??Sinuses maximum cusp-cusp ??35 mm ??Ascending aorta ??33 x 33 mm ??Descending 26 x 26 mm CORE EXAM ===== MEASUREMENTS ----- --- ?VOLUMETRIC ANALYSIS ? . . ? LV ?? Reference ?? RV ?? Reference ?? +------+ +------+ +------+ + EDV ?? ml ?389 ??(109-191) ??234 ??(105-205) ? ml/m^2 ?184 ??(60-95) ?111 ??(56-101) ?? ESV ?? ml ?292 ??(27-72) ?128 ??(20-80) ? ml/m^2 ?138 ??(14-36) ? 61 ??(11-40) ?? CO ?? L/min ? 4.66 ? 5.09 ? L/min/m^2 2.20 ? 2.41 ? MASS g ?150 ??(107-183) ? g/m^2 ? 71 ??(57-90) ? SV ?? ml ? 97 ??(73-129) ?106 ??(71-139) ? ml/m^2 ? 46 ??(40-64) ? 50 ??(37-69) ?? EF ?? % ? 25 ??(58-76) ? 45 ??(55-81) ?? '------+ +------+ +------+ ' ?CARDIAC OUTPUT HR: ??48 BPM ?LV DIMENSIONS ?WALL THICKNESS - ANTEROSEPTAL: ??1.4 cm ?WALL THICKNESS - MAXIMUM: ??1.4 cm ?LA DIMENSIONS (LV SYSTOLE) ?VOLUME: ??28 ml ?VOLUME NORMALIZED: ??13.3 ml/m^2 ?RA DIMENSIONS (RV SYSTOLE) ?VOLUME: ??82 ml ?VOLUME NORMALIZED: ??38.8 ml/m^2 ?EXTRACELLULAR VOLUME MEASUREMENT ?PRE-CONTRAST T1 MYOCARDIUM: ??1070 msec ?ECV: ??25 % 17 SEGMENT ----- --- . ----- -------. Segments ? Wall Motion ?? Hyperenhancement Stress Perfusion Interpretation + + + + +---- ----- -------+ Base Anterior ? Akinetic ? 51-75% ? Transmural MS ?? Base Anteroseptal ?? Severe Hypo ?? 51-75% ? Transmural MS ?? Base Inferoseptal ?? Severe Hypo ?? 1-25% ? Sub-Endo MS ? Base Inferior ? Severe Hypo ?? None ? Normal ? Base Inferolateral Severe Hypo ?? None ? Normal ? Base Anterolateral Severe Hypo ?? None ? Normal ? Mid Anterior ? Akinetic ? 51-75% ? Transmural MS ?? Mid Anteroseptal ?? Akinetic ? 51-75% ? Transmural MS ?? Mid Inferoseptal ?? Severe Hypo ?? 51-75% ? Sub-Endo MS ? Mid Inferior ? Severe Hypo ?? None ? Normal ? Mid Inferolateral ?? Severe Hypo ?? None ? Normal ? Mid Anterolateral ?? Severe Hypo ?? 51-75% ? Normal ? Apical Anterior ? Dyskinetic ? 51-75% ? Transmural MS ?? Apical Septal ? Dyskinetic ? 51-75% ? Transmural MS ?? Apical Inferior ? Dyskinetic ? 51-75% ? Transmural MS ?? Apical Lateral ? Dyskinetic ? 51-75% ? Transmural MS ?? [place] ? Dyskinetic ? 76-100% ? Transmural MS ?? + + + + +---- ----- -------+ RV Segments ? Wall Motion ?? Hyperenhancement ? Interpretation + + + + +---- ----- -------+ RV Basal Anterior ?? Mild/Mod Hypo None ? Normal ? RV Basal Inferior ?? Mild/Mod Hypo None ? Normal ? RV Mid ? Mild/Mod Hypo None ? Normal ? RV Apical ? Mild/Mod Hypo None ? Normal ? ' + + + +---- ----- -------' ?FINDINGS ?LV SCAR SIZE (17 SEGMENT): ??43 % SCAN INFO ===== GENERAL ----- --- ?SCANNER ?FLEET COORDINATOR: ??SIEMENS ?MODEL: ??Aera ?CONTRAST AGENT ?TYPE: ??Gadavist ?GD CONCENTRATION: ??1.0 M ?SETUP ?REFERRING PHYSICIAN: ??AYAD ANN ?ATTENDING PHYSICIAN: ??AYAD ANN BILLING ===== Patient Account ?[id number] ICD10 Codes ?I42.9 Report generated by [employer], a product of [employer] Procedure Note Dick Manning MD - 10/08/2023 [facility] CMR Report Name: KENDRA CAMPOS : Scan Date: Accession Number: [id number] Status: Final Electronically signed by Dick Manning 11:03:50 VITALS ===== HEIGHT: 72 in (183 cm) WEIGHT: 196 lbs (89 kgs) BSA: 2.11 m^2 FINAL IMPRESSION ===== 1. Ischemic cardiomyopathy resulting from large transmural LAD infarctwith severe LV dilation (LVEDVi 184 ml/m2), severe systolic dysfunction (LVEF 25%) with regional wall motionabnormalities including an apical aneurysm. Total scar burden=45%. A. Concentric remodeling of the LV with moderate left ventricularhypertrophy and a maximum wall thickness of 1.4 cm in the anteroseptum. Increased LV mass relates tosevere LV dilation. B. Transmural myocardial infarction in the LAD territory involvingthe anterior wall, anteroseptum and apical lundberg including true apex with small dense microvascularobstruction (MVO); non-viable myocardium. No myocardial edema. No infiltrative cardiomyopathy with a normal ECV of25%. D. Mixed viability in RCA territory: transmural infarct of the midinferoseptum and apical inferior wall E. Viable myocardium in the LCx territory. F. 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 2. Mildly enlarged right ventricle with mild global hypokinesis. RVEF45%. 3. Normal bi-atrial size. No significant valvular heart disease. 4. Normal aortic root and thoracic aorta caliber. SUMMARY ===== LEFT VENTRICLE: Quantitative LVEF 25 %. There is moderate LV hypertrophy.LV cavity is severely enlarged. LV systolic function is regionally impaired. There is a definite LV thrombus. LVmass/thrombus size is 19 mm x 10 mm. There is eccentric LVH. VIABILITY: LV scar size is 43 %. RIGHT VENTRICLE: Quantitative RVEF 45 %. RV wall thickness is normal. RVis mildly enlarged. RV systolic function is mildly decreased globally. There is no RV mass/thrombus. LV/RV SEPTUM: The ventricular septum is intact. LA/RA SEPTUM: The atrial septum is intact. LEFT ATRIUM: LA cavity size is normal. There is no LA mass/thrombus. RIGHT ATRIUM: RA cavity size is normal. There is no RA mass/thrombus. PERICARDIUM: Pericardium is normal. There is no pericardial effusion. PLEURAL EFFUSION: There is no pleural effusion. AORTIC VALVE: There is no aortic regurgitation. MITRAL VALVE: There is no mitral regurgitation. TRICUSPID VALVE: There is no tricuspid regurgitation. PULMONIC VALVE: There is indeterminant pulmonic reguritation. AORTIC ROOT: The aortic root is normal. OTHER FINDINGS: Thoracic aorta Left sided arch Sinuses maximum cusp-cusp 35 mm Ascending aorta 33 x 33 mm Descending 26 x 26 mm CORE EXAM ===== MEASUREMENTS ----- --- VOLUMETRIC ANALYSIS . . LV Reference RV Reference +------+ +------+ +------+ + EDV ml 389 (109-191) 234 (105-205) ml/m^2 184 (60-95) 111 (56-101) ESV ml 292 (27-72) 128 (20-80) ml/m^2 138 (14-36) 61 (11-40) CO L/min 4.66 5.09 L/min/m^2 2.20 2.41 MASS g 150 (107-183) g/m^2 71 (57-90) SV ml 97 (73-129) 106 (71-139) ml/m^2 46 (40-64) 50 (37-69) EF % 25 (58-76) 45 (55-81) '------+ +------+ +------+ ' CARDIAC OUTPUT HR: 48 BPM LV DIMENSIONS WALL THICKNESS - ANTEROSEPTAL: 1.4 cm WALL THICKNESS - MAXIMUM: 1.4 cm LA DIMENSIONS (LV SYSTOLE) VOLUME: 28 ml VOLUME NORMALIZED: 13.3 ml/m^2 RA DIMENSIONS (RV SYSTOLE) VOLUME: 82 ml VOLUME NORMALIZED: 38.8 ml/m^2 EXTRACELLULAR VOLUME MEASUREMENT PRE-CONTRAST T1 MYOCARDIUM: 1070 msec ECV: 25 % 17 SEGMENT ----- --- . ----- -------. Segments Wall Motion Hyperenhancement Stress Perfusion Interpretation + + + + +---- ----- -------+ Base Anterior Akinetic 51-75% Transmural MS Base Anteroseptal Severe Hypo 51-75% Transmural MS Base Inferoseptal Severe Hypo 1-25% Sub-Endo MS Base Inferior Severe Hypo None Normal Base Inferolateral Severe Hypo None Normal Base Anterolateral Severe Hypo None Normal Mid Anterior Akinetic 51-75% Transmural MS Mid Anteroseptal Akinetic 51-75% Transmural MS Mid Inferoseptal Severe Hypo 51-75% Sub-Endo MS Mid Inferior Severe Hypo None Normal Mid Inferolateral Severe Hypo None Normal Mid Anterolateral Severe Hypo 51-75% Normal Apical Anterior Dyskinetic 51-75% Transmural MS Apical Septal Dyskinetic 51-75% Transmural MS Apical Inferior Dyskinetic 51-75% Transmural MS Apical Lateral Dyskinetic 51-75% Transmural MS [place] Dyskinetic 76-100% Transmural MS + + + + +---- ----- -------+ RV Segments Wall Motion Hyperenhancement Interpretation + + + + +---- ----- -------+ RV Basal Anterior Mild/Mod Hypo None Normal RV Basal Inferior Mild/Mod Hypo None Normal RV Mid Mild/Mod Hypo None Normal RV Apical Mild/Mod Hypo None Normal ' + + + +---- ----- -------' FINDINGS LV SCAR SIZE (17 SEGMENT): 43 % SCAN INFO ===== GENERAL ----- --- SCANNER FLEET COORDINATOR: SIEMENS MODEL: Aera CONTRAST AGENT TYPE: Gadavist GD CONCENTRATION: 1.0 M SETUP REFERRING PHYSICIAN: AYAD ANN ATTENDING PHYSICIAN: AYAD SINGH ===== Patient Account [id number] ICD10 Codes I42.9 Report generated by [employer], a product of [employer] Ayad Ann MD MR * HEMATOCRIT/HGB,ISTAT (10/08/2023 6:37 AM OUTDOOR STUDIES PROFESSOR) HEMATOCRIT, POCT 49.0 37.0 - 53.0 % 10/08/2023 3:21 PM OUTDOOR STUDIES PROFESSOR [facility] HEMOGLOBIN, POCT 16.7 13.5 - 17.5 g/dL 10/08/2023 3:21 PM OUTDOOR STUDIES PROFESSOR [facility] Blood BLOOD SPECIMEN / Unknown 10/08/2023 6:37 AM OUTDOOR STUDIES PROFESSOR 10/08/2023 3:21 PM OUTDOOR STUDIES PROFESSOR Ayad Ann MD CHEMISTRY [facility] [address] [place] [address], * (ABNORMAL) LIPID PANEL W REFLEX MEASURED LDL (03/10/2023 9:03 AM CDT) CHOLESTEROL,TOTAL 160 100 - 199 mg/dL 03/10/2023 7:25 PM CDT [facility] Comment: Cholesterol, Total Reference Ranges Desirable <200 mg/dL Borderline 200-239 mg/dL High >=240 mg/dL TRIGLYCERIDES 125 <150 mg/dL 03/10/2023 7:25 PM CDT [facility] HDL CHOLESTEROL 27(L) >40 mg/dL 7:25 PM CDT [facility] NON-HDL CHOLESTEROL 133 <145 mg/dl 03/10/2023 7:25 PM CDT [facility] CHOL/HDL RATIO 5.93(H) <4.50 03/10/2023 7:25 PM CDT [facility] LDL CHOLESTEROL 108 <=130 mg/dL 03/10/2023 7:25 PM CDT [facility] VLDL CHOLESTEROL 25 <=30 mg/dL 03/10/2023 7:25 PM CDT [facility] PROVIDER ORDERED STATUS RANDOM 03/10/2023 7:25 PM CDT [facility] Blood BLOOD SPECIMEN / Unknown Venipuncture / Unknown 03/10/2023 9:03 AM CDT 03/10/2023 9:04 AM CDT Salvador Rankin MD CHEMISTRY Performing Organization Address City/[facility]/ZIP Co de Phone Number [facility] [address] [place] [address], * ANTI HIV 1/2 (07/15/2022 9:49 AM OUTDOOR STUDIES PROFESSOR) HIV-1/HIV-2 ANTIBODY Non-Reacti ve Non-Reacti ve 07/16/2022 12:43 PM OUTDOOR STUDIES PROFESSOR [facility] Comment:HIV-1 p24 and HIV-1/ HIV-2 Ab not detected. Blood BLOOD SPECIMEN / Unknown Venipuncture / Unknown 07/15/2022 9:49 AM OUTDOOR STUDIES PROFESSOR 07/15/2022 9:50 AM OUTDOOR STUDIES PROFESSOR Mehul Schmidt MD SEND OUTS Performing Organization Address City/[facility]/ZIP Co de Phone Number [facility] [address] [place] [address], * ANTI HCV (02/22/2021 8:37 AM CDT) HEPATITIS C ANTIBODY Non-React donny Non-React donny 02/22/2021 2:29 PM CDT [facility] Comment:Antibodies to HCV no t detected; does not exclude the possibility of exposure to HCV. Blood BLOOD SPECIMEN / Unknown Venipuncture / Unknown 02/22/2021 8:37 AM CDT 02/22/2021 8:37 AM CDT Mehul Schmidt MD SEND OUTS [facility] [address] [place] [address], from Last 3 Months or Most Recently Relevant to Health Maintenance Care Teams [employer] Relationship Specialty Start Date End Date Mehul Schmidt MD [address] [place] [address] PCP - General Family Practice 03/12/22 Pcp, No . 10/29/17 Ayad Ann MD [address] [facility] [address] [place] [address] Cardiovascular Disease 08/13/23 Nurses, Advanced Heart Failure [address], [place] [address] Advanced Heart Failure/Transplant Card 08/13/23
[2023-12-31 10:45] VITALS: BP 117/72; PULSE 46; RESP 16; O2SAT 100; BMI 25.7
[2023-12-31 11:45] VITALS: BP 99/65; PULSE 51; RESP 16; O2SAT 100
--- NOTE | 2023-12-31 11:50 | W.ANESCHARGE ---
Anesthesia Charges Start Date/Time Anesthesia Start Date: 12/31/23 Anesthesia Start Time: 11:22 Stop Date/Time Anesthesia Stop Date: 12/31/23 Anesthesia Stop Time: 11:45
[2023-12-31 11:52] LABS: Basophils Percent Auto 0.4 % (0.0-3.0); Eosinophils Percent Auto 3.4 % (0.0-7.0); Hemoglobin* 15.1 gm/dL (13.5-17.5); Immature Granulocytes Pct Auto 7.6 %; Immature Reticulocyte Fraction 2.9 % (2.3-13.4); Lymphocytes Percent Auto 44.5 % (20-44); Mean Corpuscular HGB Conc 33 gm/dL (32-36); Mean Corpuscular Hemoglobin 30 pg (26-34); Mean Corpuscular Volume 92 fL (80-100); Monocytes Percent Auto 19.1 % (0.0-11.0); Platelet Count* 89 K/uL (140-440); RDW Coefficient of Variation % 13.2 % (11.5-15.5); Red Blood Count 5.02 m/uL (4.30-5.90); Reticulocyte Hemoglobin Equivi 25.6 pg (29.0-35.0); Reticulocyte Percent 1.5 % (0.5-2.0); Reticulocytes Absolute 0.08 # (0.03-0.08); White Blood Count* 2.36 K/uL (4.50-11.00)
[2023-12-31 11:55] VITALS: BP 102/67; PULSE 44; RESP 16; O2SAT 100
[2023-12-31 12:05] VITALS: BP 107/68; PULSE 40; RESP 16; O2SAT 100
[2023-12-31 12:23] LABS: Slide Review Reflex Yes
[2023-12-31 12:24] LABS: Slide Review Acceptable Review (Acceptable)
--- NOTE | 2023-12-31 12:44 | W.ANESCHARGE ---
Anesthesia Charges Start Date/Time Anesthesia Start Date: 12/31/23 Anesthesia Start Time: 11:22 Stop Date/Time Anesthesia Stop Date: 12/31/23 Anesthesia Stop Time: 11:45
== END 2023-12-31 12:26 | disposition home or self-care (01) ==
PROVIDERS: PCP Family Medicine; Visit Provider Internal Medicine Hematology & Oncology
DX: D70.9 Neutropenia, unspecified (principal)
CPT/HCPCS: 01112; 36415; 38222; 85025; 85045; 88184; 88185; 88237; 88264; 88305; 88311; 88313; 88341; 88342; 88360; J1644; J2001; J2704

== ENCOUNTER 2024-03-14 08:00 | Outpatient (RCR) | payer BC, SELFPAY ==
[2023-09-29 08:21] VITALS: BP 103/68; PULSE 46; RESP 16; TEMP 35.7; O2SAT 100
[2023-09-29 08:38] LABS: Basophils Percent Auto 0.5 % (0.0-3.0); Eosinophils Percent Auto 5.5 % (0.0-7.0); Hemoglobin* 13.3 gm/dL (13.5-17.5); Immature Granulocytes Pct Auto 2.3 %; Lymphocytes Percent Auto 28.1 % (20-44); Mean Corpuscular HGB Conc 33 gm/dL (32-36); Mean Corpuscular Hemoglobin 29 pg (26-34); Mean Corpuscular Volume 88 fL (80-100); Monocytes Percent Auto 23.5 % (0.0-11.0); Neutrophils Percent Auto 40.1 % (42.0-72.0); Platelet Count* 116 K/uL (140-440); RDW Coefficient of Variation % 14.7 % (11.5-15.5); Red Blood Count 4.56 m/uL (4.30-5.90); White Blood Count* 2.17 K/uL (4.50-11.00)
[2023-09-29 08:44] LABS: Slide Review Reflex No
[2023-09-29] MEDS: SODIUM CHLORIDE 0.9 % (FLUSH) 10 ML SYRINGE IVF ×2 (09:00→13:17)
[2023-09-29] MEDS: 0.9 % SODIUM CHLORIDE 250 ml IV (09:00)
[2023-09-29] MEDS: ACETAMINOPHEN 325 MG TABLET 975 MG PO (09:06)
[2023-09-29] MEDS: diphenhydrAMINE 50 MG in 0.9 % SODIUM CHLORIDE 100 ml 100 ML 404 MG IVPB (09:24)
[2023-09-29] MEDS: ONDANSETRON 2 MG/ML inj 8 MG IV (09:25)
[2023-09-29] MEDS: dexAMETHasone 20 MG in 0.9 % SODIUM CHLORIDE 100 ml 100 ML 420 MG IVPB (09:58)
[2023-09-29] MEDS: OBINUTUZUMAB 1,000 MG, TUBING PRIMARY 1 EACH in 0.9 % SODIUM CHLORIDE 250 ml 250 ML 25 MG IVPB (10:22)
[2023-09-29 10:55] VITALS: BP 93/61; PULSE 50; RESP 16; TEMP 36.6; O2SAT 99
[2023-09-29 12:00] VITALS: BP 98/61; PULSE 50; RESP 16; TEMP 36.4; O2SAT 98
[2023-09-29] MEDS: HEPARIN 500 UNIT/5 ML SYRINGE IVF (13:17)
[2023-09-30] MEDS: 0.9 % SODIUM CHLORIDE 250 ml IV (13:15)
[2023-09-30] MEDS: SODIUM CHLORIDE 0.9 % (FLUSH) 10 ML SYRINGE IVF ×2 (13:15→14:46)
[2023-09-30] MEDS: ONDANSETRON 2 MG/ML inj 8 MG IV (13:18)
[2023-09-30 13:28] VITALS: BP 101/65; PULSE 49; RESP 18; TEMP 35.9; O2SAT 100
[2023-09-30] MEDS: dexAMETHasone 20 MG in 0.9 % SODIUM CHLORIDE 100 ml 100 ML 408 MG IVPB (13:42)
[2023-09-30] MEDS: HEPARIN 500 UNIT/5 ML SYRINGE IVF (14:46)
--- NOTE | 2023-10-01 15:57 | ONC.NURNOTE ---
Patient called to say that his FMLA was going to run out tomorrow. Patient was going to fax us his new paperwork. Left message for patient at [phone] stating that we have not received any paperwork.
--- NOTE | 2023-10-07 14:41 | ONC.NURNOTE ---
Intermittant leave/disability forms faxed to patients employer HR at [email or web address] fax [phone] Case # [id number] COPY PLACED IN CHART
[2023-11-17] MEDS: HEPARIN 500 UNIT/5 ML SYRINGE IVF (14:48)
[2023-11-17] MEDS: SODIUM CHLORIDE 0.9 % (FLUSH) 10 ML SYRINGE IVF (14:48)
--- NOTE | 2023-11-27 13:44 | URNOTE ---
Obinutuzumab (J9301) has been approved for treatments, 1000mg every 56 days. 12/01/2023-11/30/2024. Order ID [id number]
[2023-12-03 09:34] VITALS: BP 95/63; PULSE 58; RESP 16; TEMP 36.4; O2SAT 99
[2023-12-03 09:41] LABS: Basophils Percent Auto 0.7 % (0.0-3.0); Hematocrit 42.7 % (37.0-53.0); Lymphocytes Percent Auto 33.3 % (20-44); Mean Corpuscular HGB Conc 33 gm/dL (32-36); Mean Corpuscular Hemoglobin 30 pg (26-34); Mean Corpuscular Volume 92 fL (80-100); Monocytes Percent Auto 25.3 % (0.0-11.0); Neutrophils Percent Auto 28.7 % (42.0-72.0); Platelet Count* 128 K/uL (140-440); RDW Coefficient of Variation % 13.6 % (11.5-15.5); Red Blood Count 4.66 m/uL (4.30-5.90)
[2023-12-03 09:55] LABS: Albumin* 4.2 g/dL (3.3-5.0); Chloride* 111 mmol/L (96-114); Potassium* 3.9 mmol/L (3.6-5.1); Sodium* 141 mmol/L (135-149)
[2023-12-03 09:57] LABS: Creatinine* 0.9 mg/dL (0.5-1.5); Estimated Glomerular Filt Rate 95 ml/min
[2023-12-03 09:58] LABS: Alanine Aminotransferase* 33 U/L (4-50); Alkaline Phosphatase* 96 U/L (40-150); Anion Gap 4 mEq/L (7-15); Aspartate Amino Transferase* 39 U/L (12-35); Bilirubin Total* 0.6 mg/dL (0.1-1.5); Blood Urea Nitrogen* 21 mg/dL (7-30); Carbon Dioxide* 26 mmol/L (20-32); Glucose* 108 mg/dL (60-115); Total Protein* 6.3 g/dL (6.0-8.3)
[2023-12-03 10:13] LABS: Slide Review Reflex Yes
[2023-12-03 10:49] LABS: Basophils Percent Auto 0.6 % (0.0-3.0); Hematocrit 42.1 % (37.0-53.0); Hemoglobin* 13.9 gm/dL (13.5-17.5); Immature Granulocytes Pct Auto 4.2 %; Lymphocytes Percent Auto 39.4 % (20-44); Mean Corpuscular HGB Conc 33 gm/dL (32-36); Mean Corpuscular Hemoglobin 30 pg (26-34); Mean Corpuscular Volume 92 fL (80-100); Monocytes Percent Auto 27.9 % (0.0-11.0); Neutrophils Percent Auto 24.9 % (42.0-72.0); Platelet Count* 123 K/uL (140-440); RDW Coefficient of Variation % 13.4 % (11.5-15.5); Red Blood Count 4.59 m/uL (4.30-5.90)
[2023-12-03 10:52] LABS: White Blood Count* 1.65 K/uL (4.50-11.00)
[2023-12-03 10:53] LABS: Slide Review Reflex No
[2023-12-03 10:58] LABS: Slide Review Acceptable Review (Acceptable)
--- NOTE | 2023-12-03 11:57 | ONC.NURNOTE ---
Infusion held today due to Low WBC. Pt will be in in 1 week to recheck labs and receive treatment if labs wnl. Anya aware and did see pt.
[2023-12-16 15:34] LABS: Basophils Percent Auto 0.5 % (0.0-3.0); Eosinophils Percent Auto 4.2 % (0.0-7.0); Hematocrit 45.7 % (37.0-53.0); Hemoglobin* 15.1 gm/dL (13.5-17.5); Immature Granulocytes Pct Auto 2.3 %; Lymphocytes Percent Auto 35.3 % (20-44); Mean Corpuscular HGB Conc 33 gm/dL (32-36); Mean Corpuscular Hemoglobin 30 pg (26-34); Mean Corpuscular Volume 92 fL (80-100); Monocytes Percent Auto 24.7 % (0.0-11.0); Platelet Count* 128 K/uL (140-440); RDW Coefficient of Variation % 13.1 % (11.5-15.5); Red Blood Count 4.97 m/uL (4.30-5.90); White Blood Count* 2.15 K/uL (4.50-11.00)
[2023-12-16 15:46] LABS: Albumin* 4.6 g/dL (3.3-5.0); Chloride* 103 mmol/L (96-114); Potassium* 4.6 mmol/L (3.6-5.1); Sodium* 138 mmol/L (135-149)
[2023-12-16 15:48] LABS: Slide Review Reflex No
[2023-12-16 15:49] LABS: Alanine Aminotransferase* 33 U/L (4-50); Alkaline Phosphatase* 104 U/L (40-150); Anion Gap 4 mEq/L (7-15); Aspartate Amino Transferase* 38 U/L (12-35); Bilirubin Total* 0.7 mg/dL (0.1-1.5); Blood Urea Nitrogen* 24 mg/dL (7-30); Carbon Dioxide* 31 mmol/L (20-32); Estimated Glomerular Filt Rate 84 ml/min; Glucose* 85 mg/dL (60-115)
[2023-12-16 15:50] LABS: Calcium* 9.4 mg/dL (8.4-10.6)
--- NOTE | 2023-12-16 16:06 | ONC.NURNOTE ---
Patient called and let him know that his blood work came back and that he wouldn't be getting treated tomorrow due to ANC continuing to be below 1.0 Currently 0.7 Let him know we can call him tomorrow after discussing with providers
[2023-12-22] MEDS: HEPARIN 500 UNIT/5 ML SYRINGE IVF (15:25)
[2023-12-22] MEDS: SODIUM CHLORIDE 0.9 % (FLUSH) 10 ML SYRINGE IVF (15:25)
[2023-12-22 15:51] LABS: Basophils Percent Auto 0.6 % (0.0-3.0); Hemoglobin* 14.6 gm/dL (13.5-17.5); Immature Granulocytes Pct Auto 9.8 %; Lymphocytes Percent Auto 32.8 % (20-44); Mean Corpuscular HGB Conc 33 gm/dL (32-36); Mean Corpuscular Hemoglobin 30 pg (26-34); Mean Corpuscular Volume 91 fL (80-100); Monocytes Percent Auto 20.1 % (0.0-11.0); Neutrophils Percent Auto 32.7 % (42.0-72.0); Platelet Count* 118 K/uL (140-440); Red Blood Count 4.86 m/uL (4.30-5.90)
[2023-12-22 16:04] LABS: Albumin* 4.6 g/dL (3.3-5.0); Chloride* 106 mmol/L (96-114); Sodium* 139 mmol/L (135-149)
[2023-12-22 16:07] LABS: Alkaline Phosphatase* 93 U/L (40-150); Anion Gap 8 mEq/L (7-15); Aspartate Amino Transferase* 41 U/L (12-35); Bilirubin Total* 0.7 mg/dL (0.1-1.5); Blood Urea Nitrogen* 24 mg/dL (7-30); Carbon Dioxide* 25 mmol/L (20-32); Creatinine* 0.9 mg/dL (0.5-1.5); Estimated Glomerular Filt Rate 95 ml/min; Glucose* 138 mg/dL (60-115); Total Protein* 6.9 g/dL (6.0-8.3)
[2023-12-22 16:08] LABS: Alanine Aminotransferase* 32 U/L (4-50); Calcium* 9.3 mg/dL (8.4-10.6); White Blood Count* 1.74 K/uL (4.50-11.00)
[2023-12-22 16:09] LABS: Slide Review Reflex Yes
[2023-12-22 17:01] LABS: Slide Review Acceptable Review (Acceptable)
[2024-01-19 08:00] LABS: Basophils Percent Auto 0.4 % (0.0-3.0); Eosinophils Percent Auto 4.6 % (0.0-7.0); Hematocrit 43.7 % (37.0-53.0); Hemoglobin* 14.4 gm/dL (13.5-17.5); Immature Granulocytes Pct Auto 11.6 %; Lymphocytes Percent Auto 37.3 % (20-44); Mean Corpuscular HGB Conc 33 gm/dL (32-36); Mean Corpuscular Hemoglobin 30 pg (26-34); Mean Corpuscular Volume 92 fL (80-100); Monocytes Percent Auto 16.6 % (0.0-11.0); Neutrophils Percent Auto 29.5 % (42.0-72.0); Platelet Count* 123 K/uL (140-440); RDW Coefficient of Variation % 13.2 % (11.5-15.5); Red Blood Count 4.77 m/uL (4.30-5.90); White Blood Count* 2.41 K/uL (4.50-11.00)
[2024-01-19 08:06] LABS: Slide Review Reflex Yes
[2024-01-19 08:36] LABS: Slide Review Acceptable Review (Acceptable)
[2024-03-01 07:52] LABS: Basophils Percent Auto 0.7 % (0.0-3.0); Eosinophils Percent Auto 3.9 % (0.0-7.0); Hematocrit 41.1 % (37.0-53.0); Hemoglobin* 13.5 gm/dL (13.5-17.5); Immature Granulocytes Pct Auto 6.7 %; Lymphocytes Percent Auto 28.3 % (20-44); Mean Corpuscular HGB Conc 33 gm/dL (32-36); Mean Corpuscular Hemoglobin 31 pg (26-34); Mean Corpuscular Volume 93 fL (80-100); Monocytes Percent Auto 14.8 % (0.0-11.0); Neutrophils Percent Auto 45.6 % (42.0-72.0); Platelet Count* 113 K/uL (140-440); RDW Coefficient of Variation % 14.4 % (11.5-15.5); Red Blood Count 4.43 m/uL (4.30-5.90); White Blood Count* 2.83 K/uL (4.50-11.00)
[2024-03-01 07:53] LABS: Slide Review Reflex No
[2024-03-01 08:05] LABS: Albumin* 4.1 g/dL (3.3-5.0); Chloride* 105 mmol/L (96-114); Potassium* 4.2 mmol/L (3.6-5.1); Sodium* 138 mmol/L (135-149)
[2024-03-01 08:07] LABS: Bilirubin Total* 0.6 mg/dL (0.1-1.5); Estimated Glomerular Filt Rate 84 ml/min
[2024-03-01 08:08] LABS: Alanine Aminotransferase* 33 U/L (4-50); Alkaline Phosphatase* 109 U/L (40-150); Anion Gap 5 mEq/L (7-15); Aspartate Amino Transferase* 35 U/L (12-35); Blood Urea Nitrogen* 25 mg/dL (7-30); Carbon Dioxide* 28 mmol/L (20-32); Glucose* 97 mg/dL (60-115); Lactate Dehydrogenase* 227 U/L (120-246); Total Protein* 6.1 g/dL (6.0-8.3)
[2024-03-01 08:09] LABS: Calcium* 9.1 mg/dL (8.4-10.6)
[2024-03-01] MEDS: SODIUM CHLORIDE 0.9 % (FLUSH) 10 ML SYRINGE IVF (08:43)
[2024-03-01] MEDS: HEPARIN 500 UNIT/5 ML SYRINGE IVF (08:44)
[2024-03-11 14:09] LABS: Basophils Percent Auto 0.6 % (0.0-3.0); Eosinophils Percent Auto 1.4 % (0.0-7.0); Hematocrit 44.1 % (37.0-53.0); Hemoglobin* 14.3 gm/dL (13.5-17.5); Immature Granulocytes Pct Auto 3.4 %; Lymphocytes Percent Auto 28.2 % (20-44); Mean Corpuscular HGB Conc 32 gm/dL (32-36); Mean Corpuscular Hemoglobin 30 pg (26-34); Mean Corpuscular Volume 94 fL (80-100); Neutrophils Percent Auto 53.4 % (42.0-72.0); Platelet Count* 111 K/uL (140-440); RDW Coefficient of Variation % 14.5 % (11.5-15.5); Red Blood Count 4.71 m/uL (4.30-5.90); White Blood Count* 3.54 K/uL (4.50-11.00)
[2024-03-11 14:14] LABS: Slide Review Reflex Yes
[2024-03-11 14:25] LABS: Albumin* 4.7 g/dL (3.3-5.0)
[2024-03-11 14:26] LABS: Chloride* 102 mmol/L (96-114); Potassium* 4.2 mmol/L (3.6-5.1); Sodium* 138 mmol/L (135-149)
[2024-03-11 14:28] LABS: Anion Gap 4 mEq/L (7-15); Aspartate Amino Transferase* 41 U/L (12-35); Bilirubin Total* 0.9 mg/dL (0.1-1.5); Blood Urea Nitrogen* 20 mg/dL (7-30); Carbon Dioxide* 32 mmol/L (20-32); Estimated Glomerular Filt Rate 84 ml/min; Total Protein* 6.7 g/dL (6.0-8.3)
[2024-03-11 14:29] LABS: Alanine Aminotransferase* 37 U/L (4-50); Alkaline Phosphatase* 92 U/L (40-150); Calcium* 9.4 mg/dL (8.4-10.6); Glucose* 122 mg/dL (60-115)
[2024-03-11 14:46] LABS: Slide Review Acceptable Review (Acceptable)
[2024-03-11 15:06] LABS: NT Pro B Type NatriureticPept* 544 pg/mL
[2024-03-14] VITALS (9 sets, daily range): BP systolic 90–111; BP diastolic 58–71; PULSE 43–55; RESP 16–18; TEMP 35.8–36.6; O2SAT 96–99
[2024-03-14] MEDS: 0.9 % SODIUM CHLORIDE 250 ml IV (08:27)
[2024-03-14] MEDS: SODIUM CHLORIDE 0.9 % (FLUSH) 10 ML SYRINGE IVF ×2 (08:28→14:24)
[2024-03-14] MEDS: dexAMETHasone 20 MG in 0.9 % SODIUM CHLORIDE 100 ml 100 ML 408 MG IVPB (08:37)
[2024-03-14] MEDS: ACETAMINOPHEN 325 MG TABLET 975 MG PO (08:37)
[2024-03-14] MEDS: diphenhydrAMINE 50 MG in 0.9 % SODIUM CHLORIDE 100 ml 100 ML 400 MG IVPB (08:57)
[2024-03-14] MEDS: OBINUTUZUMAB 1,000 MG, TUBING PRIMARY 1 EACH in 0.9 % SODIUM CHLORIDE 250 ml 250 ML 13 MG IVPB (09:21)
[2024-03-14] MEDS: HEPARIN 500 UNIT/5 ML SYRINGE IVF (14:24)
== END 2024-03-27 23:59 | disposition home or self-care (01) ==
LOC: CCIC 08:00
PROVIDERS: PCP Family Medicine; Referring Provider Family Medicine; Visit Provider Internal Medicine Hematology & Oncology
DX: C82.30 Follicular lymphoma grade IIIa, unspecified site (principal); Z51.12 Encounter for antineoplastic immunotherapy
CPT/HCPCS: 36415; 36591; 80053; 83615; 83880; 85025; 96372; 96376; 96377; 96409; 96411; 96413; 96415; 99211; 99214; G0463; J2506; A9270; J1100; J1200; J1642; J2405; J7050; J9034; J9301

== ENCOUNTER 2024-05-12 14:45 | Outpatient (CLI) | payer BC, SELFPAY ==
--- OUTSIDE RECORDS SUMMARY | 2024-05-12 14:48 | XMS_ITS | Clinical Summary ---
Author Organization [facility] Address [place], [place] [address] Care Team Providers Care Fish Grader Name Role Phone Pcp, No Unavailable Unavailable Mehul Schmidt MD Primary Care Provider Ayad Ann MD Unavailable [phone] Nurses, Advanced Heart Failure Unavailable + Allergies No known active allergies Medications Medication Sig Dispensed Refills Start Date End Date Status sildenafil citrate (VIAGRA) 50 mg tabletIndications:E rectile dysfunction, unspecified erectile dysfunction type Take 1 Tablet (50 mg) by mouth once daily if needed for Erectile Dysfunction. Take 30min to 4 hours before sexual activity. Max 100mg/24hr 10 Tablet 6 2 Active ibuprofen (ADVIL; MOTRIN) 200 mg tablet Take 200 mg by mouth every 4 hours if needed for Pain. 3 Active sacubitril-valsarta n (ENTRESTO 97 MG-103 MG TABLET) 97-103 mg tabletIndications:C ardiomyopathy, unspecified type (HC) Take 1 Tablet by mouth two times daily. 180 Tablet 3 4 Active apixaban (Eliquis) 5 mg tabletIndications:L eft ventricular apical thrombus,Hyperlipid emia, unspecified hyperlipidemia type Take 1 Tablet (5 mg) by mouth two times daily. 180 Tablet 3 4 Active atorvastatin (LIPITOR) 40 mg tabletIndications:H yperlipidemia, unspecified hyperlipidemia type Take 1 Tablet (40 mg) by mouth at bedtime. 90 Tablet 3 4 Active spironolactone (ALDACTONE) 25 mg tabletIndications:C ardiomyopathy, unspecified type (HC) Take 1 Tablet (25 mg) by mouth once daily. 90 Tablet 1 4 Active dapagliflozin propanediol (Farxiga) 10 mg tabletIndications:C ardiomyopathy, unspecified type (HC) Take 1 Tablet (10 mg) by mouth once daily. 90 Tablet 3 4 Active metoprolol succinate (TOPROL XL) 25 mg Sustained-Release tabletIndications:C ardiomyopathy, unspecified type (HC) Take 0.5 Tablets (12.5 mg) by mouth once daily. 15 Tablet 11 3 04/13/20 24 Discontinued(*Me d complete/Regimen complete/Level of care change) dapagliflozin propanediol (Farxiga) 10 mg tabletIndications:C ardiomyopathy, unspecified type (HC) Take 1 Tablet (10 mg) by mouth once daily. 90 Tablet 2 4 05/10/20 24 Discontinued(Reo rder (E-cancel not sent)) sacubitril-valsarta n (ENTRESTO) 97-103 mg tabletIndications:C ardiomyopathy, unspecified type (HC) Take 1 Tablet by mouth two times daily. 180 Tablet 1 4 05/02/20 24 Discontinued Eliquis 5 mg tabletIndications:L eft ventricular apical thrombus,Hyperlipid emia, unspecified hyperlipidemia type TAKE 1 TABLET BY MOUTH TWO TIMES DAILY. 180 Tablet 1 4 05/10/20 24 Discontinued(Reo rder (E-cancel not sent)) spironolactone (ALDACTONE) 25 mg tabletIndications:C ardiomyopathy, unspecified type (HC) TAKE 1 TABLET BY MOUTH EVERY DAY 90 Tablet 1 4 05/10/20 24 Discontinued(Reo rder (E-cancel not sent)) atorvastatin (LIPITOR) 40 mg tabletIndications:H yperlipidemia, unspecified hyperlipidemia type TAKE 1 TABLET BY MOUTH AT BEDTIME 90 Tablet 1 4 05/10/20 24 Discontinued(Reo rder (E-cancel not sent)) ENTRESTO 97 MG-103 MG TABLET 97-103 mg tabletIndications:C ardiomyopathy, unspecified type (HC) TAKE 1 TABLET BY MOUTH TWICE A DAY 180 Tablet 1 4 05/10/20 24 Discontinued(Reo rder (E-cancel not sent)) Active Problems Problem Noted Date Diagnosed Date Grade 3a follicular lymphoma; 03/20/2023 3 Acute eczema 07/15/2022 Hyperlipidemia 02/22/2021 Benign essential HTN 02/22/2021 Overweight 02/22/2021 Prediabetes 08/17/2020 Encounters Date Type Department Care Team Description 05/10/2024 9:30 AM CDT Office Visit [address] [place] [address] Ayad Ann MD CV Heart Failure Est (3 mo f/u, review CT done 03/31, no specific concerns or complaints. ) 05/10/2024 Travel 05/01/2024 Refill [facility] [place] [place] [address] [facility] [address] [place] [address] Ayad Ann MD Refill Request (Entresto 97 Mg-103 Mg Tablet) 04/05/2024 Telephone [facility] [address] [place] [address] Mehul Scmhidt MD Appointment Request (CARDIOLOGY APPT FOLLOW) 03/31/2024 8:30 AM CDT Ancillary Procedure [facility] [address] [place] [address] 03/31/2024 8:00 AM CDT Orders Only [facility] [address] [facility] [address] [place] [address] Lab 03/31/2024 Telephone [facility] [place] [place] [address] [facility] [address] [place] [address] Susana Zhu NP Results (CTA) 03/31/2024 Orders Only [facility] [address] [place] [address] Son Moise MD <No scans attached> 03/31/2024 Travel 03/23/2024 Orders Only [facility] [address] [place] [address] Susana Zhu NP <No scans attached> 03/11/2024 8:00 AM CDT Office Visit [facility] [place] [address] [facility] [address] [place] [address] Susana Zhu NP CV General Cardiology Est (CHF FOLLOW UP/LABS AND ECHO PRIOR IN [facility] 02/25/I42.9 (ICD-10-CM) - Cardiomyopathy, unspecified type (HC) /) 03/11/2024 Travel 03/07/2024 Telephone [facility] [address] [place] [address] Iram Garcia RN Lab (Faxed labs) 03/07/2024 Travel 02/26/2024 9:15 AM CDT Orders Only [facility] [address] [place] [address] Lab, [place] Lab 02/26/2024 8:00 AM CDT Ancillary Procedure [facility] [address] [place] [address] 02/26/2024 Travel 02/19/2024 Orders Only [facility] [address] [place] [address] Betty Quiroga NP <No scans attached> 02/19/2024 Telephone [facility] [address] [facility] [address] [place] [address] Susana Zhu NP Lab from Last 3 Months Immunizations Name Administration [...] Yes Alcohol Use Standard Drinks/Week Comments Yes 2 (1 standard drink = 0.6 oz pur [...] Sign Reading Time Taken Comments Blood Pressure 118/74 05/10/2024 9:22 AM CDT Pulse 55 05/10/2024 9:22 AM CDT Temperature 36.4 ??C (97.6 ??F) 09/10/2023 8:40 AM CS T Respiratory Rate 18 09/10/2023 8:40 AM QUALITY CONTROL OPERATOR Oxygen Saturation 99% 05/10/2024 9:22 AM CDT Inhaled Oxygen Concentration - - Weight 95.7 kg (211 lb) 05/10/2024 9:22 AM CDT Height 181.8 cm (5' 11.58) 05/10/2024 9:22 AM C DT Body Mass Index 28.96 05/10/2024 9:22 AM CDT Plan of Treatment Upcoming Encounters Date Type Department Care Team (Late st Contact Info) Description 07/27/2024 8:00 AM QUALITY CONTROL OPERATOR Office Visit [facility] [place] [address] [place] [address] Kaleb Silvestre MD [address] [place] [address] 07/27/2024 11:00 AM QUALITY CONTROL OPERATOR Orders Only [facility] [place] [address] [place] [address] Health Maintenance Due Date Last Done Comments Pneumococcal series for age 65+ (1 of 2 - PCV) 1966 Colonoscopy through age 75 02/16/2004 COVID-19 vaccine series (3 - Moderna risk series) 07/12/2021 06/14/2021, 05/13/2021 Depression screening for age 12+ 03/12/2023 03/12/2022, 02/22/2021, 01/27/2020, Additional history exists AAA screening age 65-74 02/16/2024 03/20/2023 Influenza for age 65+ 04/17/2024 07/17/2017 BMI (ht and wt on same day) for age 18+ 05/10/2025 05/10/2024, 03/11/2024, 11/18/2023, Additional history exists Lipids for age 45-75 03/10/2028 03/10/2023, 07/15/2022, 03/12/2022, Additional history exists Tetanus booster 02/22/2031 02/22/2021, 11/28/2010 Zoster (shingles) series for age 50+ Completed 05/04/2020, 01/27/2020 Hepatitis C screening for ag e 18-79 Completed 02/22/2021 Tdap Completed 02/22/2021, 11/28/2010 HIV for age 15-65 Completed 07/15/2022 Procedures Procedure Name Priority Date/Time Associated Diagnosis Comments EKG 12 LEAD Routine 03/31/2024 9:10 AM CDT Cardiomyopathy, unspecified type (HC) CT CARDIAC CORONARY ARTERIES DUAL READ Routine 03/31/2024 8:33 AM CDT Cardiomyopathy, unspecified type (HC) Benign essential HTN CREATININE,ISTAT Routine 03/31/2024 8:04 AM CDT Cardiomyopathy, unspecified type (HC) SCAN CORRESP-LABORATOR Y RESULTS 03/16/2024 2:12 PM CDT ECHO TTE COMPLETE W CONTRAST Routine 02/26/2024 8:55 AM CDT Cardiomyopathy, unspecified type (HC) PRO-BNP Routine 02/26/2024 7:49 AM CDT HFrEF (heart failure with reduced ejection fraction) (HC) BASIC METABOLIC PANEL Routine 02/26/2024 7:49 AM CDT HFrEF (heart failure with reduced ejection fraction) (HC) CT CHEST ABDOMEN PELVIS W MARCI 03/20/2023 3:22 PM CDT Cervical lymphadenopathy LIPID PANEL W REFLEX MEASURED LDL Routine 03/10/2023 9:03 AM CDT Hyperlipidemia, unspecified hyperlipidemia type ANTI HIV 1/2 Routine 07/15/2022 9:49 AM QUALITY CONTROL OPERATOR Screening for HIV (human immunodeficiency virus) ANTI HCV Routine 02/22/2021 8:37 AM CDT Need for hepatitis C screening test from Last 3 Months or Most Recently Relevant to Health Maintenance Results * EKG 12 LEAD (03/31/2024 9:10 AM CDT) Interpretation Critical Test Result: Low HR Marked sinus bradycardia Left axis deviation Low voltage QRS Septal infarct (cited on or before 13-Aug-2023) Possible Lateral infarct (cited on or before 13-Aug-2023) Abnormal ECG When compared with ECG of 18-Nov-2023 16:11, Premature ventricular complexes are no longer Present Questionable change in initial forces of Anterolateral leads Ventricular Rate 36 BPM Atrial Rate 36 BPM P-R Interval 192 ms QRS Duration 104 ms QT 464 ms QTc 358 ms P [place] 58 degrees R [place] -43 degrees T [place] 108 degrees 03/31/2024 9:10 AM CDT 04/12/2024 7:41 AM CDT Juvencio Jordan oMise MD EKG ORD * CT CARDIAC CORONARY ARTERIES DUAL READ (03/31/2024 8:33 AM CDT) Anatomical Region Laterality Modality HEART Computed Tomogra phy 03/31/2024 8:32 AM CDT Narrative 03/31/2024 5:41 PM CDT ?[facility] ? Cardiac CT Report ??MRN: ? [id number] ?Name: ? BEAM, KENDRA H ?: ?1959- ?Scan Date: ?Accession Number: ? [id number] ?Status: ? Final ? Electronically signed by SilvanaOskar eason 10:02:30 VITALS HEIGHT: 71 in ?(180 cm) WEIGHT: 200 lbs ?(91 kgs) BSA: 2.11 m^2 BMI: 28 kg/m^2 BP: 115 / 69 mmHg BASELINE HR: 45 BPM HEART RHYTHM: Normal Sinus Rhythm FINAL IMPRESSION 1. Obstructive coronary artery disease with occlusion of the ostial LAD. Patient known large myocardial infarction in the LAD territory. 2. There is mild nonobstructive disease in the RCA and LCx. 3. There is no evidence of left atrial appendage thrombus. 4. The main pulmonary artery is dilated with maximal diameter of 34 mm compatible with increase pulmonary artery pressure. Please see radiology section at end of report for noncardiac findings. RECOMMENDATIONS: The measured burden of coronary atherosclerosis has been associated with substantially increased long-term cardiovascular event risk (10-year risk > 20%). Recommend aggressive risk factor modification. STUDY QUALITY: Study quality is good. CAD-RADS: CAD-RADS Classification 5 (100% stenosis). CALCIUM SCORING: Total coronary artery calcium score 1232. GOLDEN percentile based on age, gender, and race is 94. DOMINANCE: Right dominant coronary artery system. LM: The LM has calcified atherosclerosis. There is a <25% LM stenosis. LAD: There is ostial LAD occlusion of complex plaque, the complex lesion length is approximately 24.3 mm, followed by an area of mild disease which has contrast present compatible with collateral circulation. The segment of the proximal to mid LAD with mild disease has a length of about 22 mm, this is followed by another segment with subtotal occlusion in the middle LAD. ??The distal LAD has contrast compatible with collateral circulation. D1: The first diagonal is occluded. D2: There is a >=70% second diagonal stenosis. LCX: The proximal LCx has partially calcified atherosclerosis. There is a <25% proximal LCx stenosis. The mid LCx has partially calcified atherosclerosis. There is a 25-49% mid LCx stenosis. There is a <25% distal LCx stenosis. The left circumflex is a large-caliber vessel, gives rise to 2 obtuse marginal vessels, the left circumflex tapers in the atrioventricular groove after the origin of a moderate caliber obtuse marginal 2. OM1: The first obtuse marginal has calcified atherosclerosis. There is a <25% first obtuse marginal stenosis. OM2: The second obtuse marginal has partially calcified atherosclerosis. There is a <25% second obtuse marginal stenosis. RCA: The proximal RCA has calcified atherosclerosis. There is a 25-49% proximal RCA stenosis. The mid RCA has partially calcified atherosclerosis. There is a 25-49% mid RCA stenosis. The distal RCA has partially calcified atherosclerosis. There is a 25-49% distal RCA stenosis. RIGHT PDA: There is a <25% right PDA stenosis. RIGHT PLB: There is a <25% right posterolateral stenosis. OTHER FINDINGS: Aortic sinus maximum cusp-commissure: 35 mm. The is mild calcification of the proximal ascending aorta. Ascending aorta maximum diameter: 34 mm. Descending thoracic aorta maximum diameter: 26 mm. Pericardium: No effusion. Left atrium: Normal contrast opacification. Atrial septum: No evidence of shunt. Pulmonary veins: Normal anatomy. The left ventricle is severely enlarged, with evidence of focal areas of hypoattenuation in the anterior and septal segments compatible with prior history of myocardial infarction. The main pulmonary artery is dilated with maximal diameter of 34 mm compatible with increase pulmonary artery pressure. CALCIUM SCORING TABLE . . ? Number of Lesions Pattern of Calcium Volume Total Score +-------+ + +--------+ + LM ?54 LAD ? 621 LCx ? 104 RCA ? 453 Ramus ? '-------+ + +--------+ ' SCAN INFO TEST TYPE: ??Calcium score, Coronary CT Angiography SCANNER TRUCK TECHNICIAN: ??SIEMENS SCANNER MODEL: ??[employer] Force DOSE REDUCTION ALGORITHM: ??Prospective/Hqro-shi-depxq PHASE UNITS: ??% START PHASE: ??65 % END PHASE: ??75 % EKG GATED: ??Yes PRE-CONTRAST: ??Yes POST-CONTRAST: ??Yes 3D RECONSTRUCTION: ??Yes PACEMAKER ?DEVICE: ??No GENERAL ?CONTRAST AGENT ?CONTRAST AGENT USED?: ??Yes ?TYPE: ??Omnipaque 350 ?DOSE: ??105 ml ?RATE: ??6.5 ml/s ?ROUTE: ??IV ?ARM: ??Right ?BOLUS TECHNIQUE: ??Biphasic ?ADVERSE REACTION: ??No ?SERUM CREATININE: ??1.1 mg/dL ?GFR: ??71.40 ml/min/1.73m^2 ?CREATININE DATE: ?CT CONTRAST REACTION: ??None ?CONTRAST/SALINE ADMINISTRATION: ??Blended ?CONTRAST TIMING: ??Bolus Tracking Method ?MEDICATION ADMINISTERED DURING SCAN ?TYPE: ??Nitroglycerin, sublingual ?NITROGLYCERIN, TOTAL DOSE: ??0.8 mg ?RADIATION DOSE ?DLP: ??271 ?KV: ??100 ?SETUP ?PATIENT TYPE: ??Outpatient ?REASON(S) FOR SCAN: ??Other... ?OTHER, SPECIFY:: ??HTN CM ?REFERRING PHYSICIAN: ??SUSANA ZHU ?TECHNOLOGIST: ??Paige Amaya BILLING Patient Account ?[id number] ICD10 Codes ?I42.9, I10 Report generated by [employer], a product of [employer] Over read: Findings: No lower central pulmonary emboli. ??No lower hilar adenopathy. The visualized portions of the lungs show no focal pulmonary opacities. ?? No pneumothorax. No other bony or soft tissue abnormalities identified. Impression: No acute abnormalities of the extracardiac structures identified. Susana Zhu MORNING SHOW [facility] CT * (ABNORMAL) CREATININE,ISTAT (03/31/2024 8:04 AM CDT) [facility] CREATININE, POCT 1.10 0.57 - 1.11 mg/dL 03/31/2024 8:07 AM CDT [facility] Comment:Caution: Patients ta mckay Hydroxyurea have falsely increased iStat Creatinine results. Verify creatinine results ordering a Creatinine (72195.2) eGFR 74(L) >90 mL/min/1.7 3m2 03/31/2024 8:07 AM CDT [facility] Comment:As of 2021, eG FR is calculated by the CKD-EPI creatinine equation without race adjustment. eGFR can be influenced by muscle mass, exercise, and diet. The reported eGFR is an estimation only and is only applicable if the renal function is stable. Blood BLOOD SPECIMEN / Unknown 03/31/2024 8:04 AM CDT 03/31/2024 8:07 AM CDT Susana Gretchen Zhu MORNING SHOW [employer] CHEMISTRY [facility] [address] [place] [address], * SCAN CORRESP-LABORATORY RESULTS (03/16/2024 2:12 PM CDT) Narrative 03/16/2024 2:12 PM CDT Ordered by an unspecified provider. Other Clinical Staff OTHER * ECHO TTE COMPLETE W CONTRAST (02/26/2024 8:55 AM CDT) AORTIC VALVE MEAN PG 5 mmHg EJECTION FRACTION 32 % LVEDD 6.5 cm EJECTION FRACTION 30 - 35% Anatomical Region Laterality Modality Ultrasound 02/26/2024 7:53 AM CDT Narrative 02/26/2024 10:23 AM CDT ECHOCARDIOGRAM KENDRA Reyes ONUR CABEZAS ?Accession#: ?? [id number] : ?1960 64 years Study Date: ?? 02/26/2024 7:53:47 AM Gender: M ? BP: ? 111/59 mmHg Height: 180.00 cm ? BSA: ?2.11 m? ? ? Weight: 91.00 kg ?Tech: ? MBF ?Referring MD: AYAD ANN Site: ? [facility] Reading Location: Mobile OP Patient Location: Outpatient. Procedure: 2D w/ Contrast, Color Doppler and Spectral Doppler. Indication for study: Cardiomyopathy, unspecified type Cardiac Rhythm: Sinus bradycardia.Study quality: Fair. Final Impressions: 1. Moderately increased LV size with moderately reduced systolic function with an estimated EF of 30 - 35%. Mid septum and apical segments are akinetic. Mid anterior and anterolateral lundberg are hypokinetic. 2. Right ventricular cavity size is normal, global systolic RV function is normal. 3. Grade 1 pattern of LV diastolic filling. 4. No significant valve disease detected. 5. The aortic sinus is dilated with a maximal diameter of 4.0 cm. Comparison Compared to prior exam of 07/16/2023: Minimal improvement in LVEF. Chamber Sizes and Function Moderately increased left ventricular size, borderline wall thickness, moderately reduced global systolic function with an estimated EF of 30 - 35%. Left atrial size is normal. Left atrial pressure is normal. Right ventricular cavity size is normal, global systolic RV function is normal. RV wall thickness is normal. The right atrium is normal. Right atrial volume index is 17 ml/m? ? ?. Right atrial area is 14 cm? ? ?. The pulmonary artery is of normal size and origin. The sinus of Valsalva is dilated. The ascending aorta is normal sized. The mid and distal anterior septum, entire apex, and mid septum segment are akinetic. The mid lateral segment and mid anterior segment are hypokinetic. All remaining scored segments are normal. Valves, RV Pressures and Diastolic Function The aortic valve is trileaflet and sclerotic, no stenosis and trivial regurgitation. The mitral valve is normal in structure, trace mitral regurgitation. Spectral Doppler shows Grade 1 pattern of LV diastolic filling. The tricuspid valve is normal in structure. Tricuspid regurgitation is trace regurgitation. Unable to assess right ventricular systolic pressure. The pulmonic valve is not well visualized. Trace pulmonary regurgitation. Masses, Effusion, Shunts There is no pericardial effusion. The inferior vena cava is normal sized, respiratory size variation greater than 50%. No left to right shunting was detected by limited color flow Doppler interrogation of the interatrial septum. MEASUREMENTS AND CALCULATIONS 2-D Measurements and LV Function: LVID (d) 6.5 cm LV FS% (2D) ?? 28 % LVID (s) 4.7 cm LVOT diameter 2.2 cm IVS (d) ??1.2 cm HR ?42 bpm LVPW (d) 1.0 cm LA Vol index ??25 ml/m2 Ao Sinus 4.0 cm RA Vol index ??17 ml/m2 Asc Ao ?? 3.7 cm RA area ? 14 cm?RV Max 4C (d) 4.1 cm Diastology: Mitral ?Tissue Doppler E Peak 0.5 m/s ??e', Septum ? 0.05 m/s A Peak 0.4 m/s ??e', Lateral ?0.07 m/s E/A ?1.2 ?E/e' Average ?? 8.11 DT ? 416 msec Aortic Valve: Vmax ? 1.5 m/s ??CLAIRE (V) ?? 2.80 cm? ? ? VTI ?0.37 m ?? CLAIRE (I) ?? 2.50 cm? ? ? LVOT V max 1.1 m/s ??Max PG ?9 mmHg LVOT VTI ?? 0.24 m ?? Mean PG ?? 5 mmHg SV ? 92 ml ?Dim Index 0.64 SV index ?? 44 ml/m? ? ? CO ?3.9 l/min ?CI ?1.8 l/min/m? ? ? Mitral Valve: MVA ?1.8 cm? ? ? MV P 1/2 121 msec Tricuspid Valve and estimated PA pressures: TAPSE 2.3 cm Contrast documentation: 4 ml diluted Definity, lot #[id number], [facility]# [id number] was administered peripherally to enhance visualization of all left ventricular segments. . This study was interpreted by an [facility] accredited facility. ??Final ?? Procedure Note Jas Mclean MD - 02/26/2024 ECHOCARDIOGRAM KENDRA CAMPOS JR. : 1960 64 years Study Date: 02/26/2024 7:53:47 AM Gender: M BP: 111/59 mmHg Height: 180.00 cm BSA: 2.11 m? ? ? Weight: 91.00 kg Tech: [facility] Referring MD: AYAD ANN Site: [facility] Reading Location: Mobile OP Patient Location: Outpatient. Procedure: 2D w/ Contrast, Color Doppler and Spectral Doppler. Indication for study: Cardiomyopathy, unspecified type Cardiac Rhythm: Sinus bradycardia.Study quality: Fair. Final Impressions: 1. Moderately increased LV size with moderately reduced systolic functionwith an estimated EF of 30 - 35%. Mid septum and apical segments areakinetic. Mid anterior and anterolateral lundberg are hypokinetic. 2. Right ventricular cavity size is normal, global systolic RV functionis normal. 3. Grade 1 pattern of LV diastolic filling. 4. No significant valve disease detected. 5. The aortic sinus is dilated with a maximal diameter of 4.0 cm. Comparison Compared to prior exam of 07/16/2023: Minimal improvement in LVEF. Chamber Sizes and Function Moderately increased left ventricular size, borderline wall thickness,moderately reduced global systolic function with an estimated EF of 30 -35%. Left atrial size is normal. Left atrial pressure is normal. Rightventricular cavity size is normal, global systolic RV function is normal.RV wall thickness is normal. The right atrium is normal. Right atrialvolume index is 17 ml/m? ? ?. Right atrial area is 14 cm? ? ?. The pulmonaryartery is of normal size and origin. The sinus of Valsalva is dilated. Theascending aorta is normal sized. The mid and distal anterior septum,entire apex, and mid septum segment are akinetic. The mid lateral segmentand mid anterior segment are hypokinetic. All remaining scored segmentsare normal. Valves, RV Pressures and Diastolic Function The aortic valve is trileaflet and sclerotic, no stenosis and trivialregurgitation. The mitral valve is normal in structure, trace mitralregurgitation. Spectral Doppler shows Grade 1 pattern of LV diastolicfilling. The tricuspid valve is normal in structure. Tricuspidregurgitation is trace regurgitation. Unable to assess right ventricularsystolic pressure. The pulmonic valve is not well visualized. Tracepulmonary regurgitation. Masses, Effusion, Shunts There is no pericardial effusion. The inferior vena cava is normal sized,respiratory size variation greater than 50%. No left to right shunting wasdetected by limited color flow Doppler interrogation of the interatrialseptum. MEASUREMENTS AND CALCULATIONS 2-D Measurements and LV Function: LVID (d) 6.5 cm LV FS% (2D) 28 % LVID (s) 4.7 cm LVOT diameter 2.2 cm IVS (d) 1.2 cm HR 42 bpm LVPW (d) 1.0 cm LA Vol index 25 ml/m2 Ao Sinus 4.0 cm RA Vol index 17 ml/m2 Asc Ao 3.7 cm RA area 14 cm? ? ? RV Max 4C (d) 4.1 cm Diastology: Mitral Tissue Doppler E Peak 0.5 m/s e', Septum 0.05 m/s A Peak 0.4 m/s e', Lateral 0.07 m/s E/A 1.2 E/e' Average 8.11 DT 416 msec Aortic Valve: Vmax 1.5 m/s CLAIRE (V) 2.80 cm? ? ? VTI 0.37 m CLAIRE (I) 2.50 cm? ? ? LVOT V max 1.1 m/s Max PG 9 mmHg LVOT VTI 0.24 m Mean PG 5 mmHg SV 92 ml Dim Index 0.64 SV index 44 ml/m? ? ? CO 3.9 l/min CI 1.8 l/min/m? ? ? Mitral Valve: MVA 1.8 cm? ? ? MV P 1/2 121 msec Tricuspid Valve and estimated PA pressures: TAPSE 2.3 cm Contrast documentation: 4 ml diluted Definity, lot #[id number], [facility]#[id number] was administered peripherally to enhance visualization of allleft ventricular segments. . This study was interpreted by an [facility] accredited facility. Final Ayad Ann MD ECHO ORD * (ABNORMAL) PRO-BNP (02/26/2024 7:49 AM CDT) Pathologist [facility] PRO-BNP 362(H) <125 pg/mL 02/26/2024 3:24 PM CDT [facility] Fast FiBR [facility] Blood BLOOD SPECIMEN / Unknown Venipuncture / Unknown 02/26/2024 7:49 AM CDT 02/26/2024 7:50 AM CDT Narrative [facility] - 02/26/2024 3:24 PM CDT The following cut-points have been suggested for the use of proBNP for the diagnostic evaluation of heart failure (HF) in patient with acute dyspnea. Patients with eGFR >= 60 Diagnosis (rule in CHF) ? <50 Years Old ?450 pg/mL 50 - 75 Years Old ?900 pg/mL >75 Years Old ? 1800 pg/mL Exclusion (rule out CHF) Age Independent ?300 pg/mL A cutoff of 1200 pg/mL for patients with an eGFR <60 yields a diagnostic sensitivity of 89% and specificity of 72% for acute congestive heart failure. ? Betty Quiroga NP SEND OUTS [facility] [address] [place] [address], * (ABNORMAL) BASIC METABOLIC PANEL (02/26/2024 7:49 AM CDT) [facility] SODIUM 140 136 - 145 mmol/L 02/26/2024 3:23 PM CDT [facility] POTASSIUM 4.7 3.5 - 5.1 mmol/L 02/26/2024 3:23 PM CDT [facility] CHLORIDE 104 98 - 107 mmol/L 02/26/2024 3:23 PM CDT [facility] CO2,TOTAL 27 22 - 29 mmol/L 02/26/2024 3:23 PM CDT [facility] ANION GAP 9 5 - 18 02/26/2024 3:23 PM CDT [facility] GLUCOSE 104(H) 70 - 99 mg/dL 02/26/2024 3:23 PM CDT [facility] CALCIUM 9.3 8.8 - 10.2 mg/dL 02/26/2024 3:23 PM CDT [facility] BUN 25(H) 8 - 23 mg/dL 02/26/2024 3:23 PM CDT [facility] CREATININE 1.09 0.70 - 1.20 mg/dL 02/26/2024 3:23 PM CDT [facility] BUN/CREAT RATIO 23(H) 10 - 20 3:23 PM CDT [facility] eGFR 75(L) >90 mL/min/1.7 3m2 02/26/2024 3:23 PM CDT [facility] Comment:As of 2021, eG FR is calculated by the CKD-EPI creatinine equation without race adjustment. ??eGFR can be influenced by muscle mass, exercise, and diet. ??The reported eGFR is an estimation only and is only applicable if the renal function is stable. Blood BLOOD SPECIMEN / Unknown Venipuncture / Unknown 02/26/2024 7:49 AM CDT 02/26/2024 7:50 AM CDT Betty Quiroga MORNING SHOW [employer] CHEMISTR[facility] [address] [place] [address], [place] * CT CHEST ABDOMEN PELVIS W (03/20/2023 3:22 PM CDT) Anatomical Region Laterality Modality Abdomen, Pelvis, AORTA, LIVER, SPLEEN, CHEST Computed Tomography 03/24/2023 7:30 AM CDT Addenda Addendum by Arpit Valera MD on 03/24/2023 7:44 AM CDT Indication: Adenopathy Technique: Postcontrast CT chest, abdomen and pelvis. 100 cc Omnipaque 350 intravenous contrast. Please note that all CT scans at this facility use dose modulation, iterative reconstruction, and/or weight-based dosing when appropriate to reduce radiation dose to as low as reasonably achievable. Comparison: None Findings: In the chest, bulky thoracic inlet, axillary, hilar and mediastinal adenopathy. Bulky adenopathy in the left supraclavicular space was biopsied 03/20/2023. Results are not back at the time of dictation. No pericardial effusion. No pleural effusion. No aortic dissection. No pulmonary embolism. Adenopathy in the anterior epicardial space also noted. Numerous lymph nodes in the paravertebral space also noted. No fracture. Lungs clear. No pulmonary nodule or infiltrate. In the abdomen, the spleen is enlarged measuring 17.0 x 13.9 x 10.2 cm. Trace ascites surrounds the spleen. No intrahepatic mass. Incidental cyst is located within the liver measuring 1.2 cm. The pancreas is normal. Gallbladder nondistended. Adrenal glands normal. Normal kidneys. The stomach is unremarkable. Bulky retroperitoneal adenopathy with lymph nodes measuring up to 5 cm. Mildly prominent mesenteric lymph nodes are present within the central mesenteric fat along with mesenteric stranding. No free air. In the pelvis, the prostate is mildly heterogeneous. The bladder is normal. No bowel obstruction. No abscess. Bulky bilateral iliac adenopathy noted with lymph nodes measuring up to 2.9 cm. Enlarged bilateral inguinal lymph nodes. Vasectomy clips are present. Degenerative disc disease L5-S1 and L2-3. No vertebral body compression fracture. Impression: Bulky intrathoracic, intra-abdominal and intrapelvic adenopathy. Splenomegaly with trace perisplenic fluid. Please note that all CT scans at this facility use dose modulation, iterative reconstruction, and/or weight-based dosing when appropriate to reduce radiation dose to as low as reasonably achievable. Dictated by Arpit Valera MD @ Mar ??8 2022 ??7:30AM (Electronically Signed) Addendum by Arpit Valera MD on 03/24/2023 7:44 AM CDT Indication: Adenopathy Technique: Postcontrast CT chest, abdomen and pelvis. 100 cc Omnipaque 350 intravenous contrast. Please note that all CT scans at this facility use dose modulation, iterative reconstruction, and/or weight-based dosing when appropriate to reduce radiation dose to as low as reasonably achievable. Comparison: None Findings: In the chest, bulky thoracic inlet, axillary, hilar and mediastinal adenopathy. Bulky adenopathy in the left supraclavicular space was biopsied 03/20/2023. Results are not back at the time of dictation. No pericardial effusion. No pleural effusion. No aortic dissection. No pulmonary embolism. Adenopathy in the anterior epicardial space also noted. Numerous lymph nodes in the paravertebral space also noted. No fracture. Lungs clear. No pulmonary nodule or infiltrate. In the abdomen, the spleen is enlarged measuring 17.0 x 13.9 x 10.2 cm. Trace ascites surrounds the spleen. No intrahepatic mass. Incidental cyst is located within the liver measuring 1.2 cm. The pancreas is normal. Gallbladder nondistended. Adrenal glands normal. Normal kidneys. The stomach is unremarkable. Bulky retroperitoneal adenopathy with lymph nodes measuring up to 5 cm. Mildly prominent mesenteric lymph nodes are present within the central mesenteric fat along with mesenteric stranding. No free air. In the pelvis, the prostate is mildly heterogeneous. The bladder is normal. No bowel obstruction. No abscess. Bulky bilateral iliac adenopathy noted with lymph nodes measuring up to 2.9 cm. Enlarged bilateral inguinal lymph nodes. Vasectomy clips are present. Degenerative disc disease L5-S1 and L2-3. No vertebral body compression fracture. Impression: Bulky intrathoracic, intra-abdominal and intrapelvic adenopathy. Splenomegaly with trace perisplenic fluid. Please note that all CT scans at this facility use dose modulation, iterative reconstruction, and/or weight-based dosing when appropriate to reduce radiation dose to as low as reasonably achievable. Dictated by Arpit Valera MD @ Mar ??8 2022 ??7:30AM (Electronically Signed) Addendum by Arpit Valera MD on 03/24/2023 7:44 AM CDT Indication: Adenopathy Technique: Postcontrast CT chest, abdomen and pelvis. 100 cc Omnipaque 350 intravenous contrast. Please note that all CT scans at this facility use dose modulation, iterative reconstruction, and/or weight-based dosing when appropriate to reduce radiation dose to as low as reasonably achievable. Comparison: None Findings: In the chest, bulky thoracic inlet, axillary, hilar and mediastinal adenopathy. Bulky adenopathy in the left supraclavicular space was biopsied 03/20/2023. Results are not back at the time of dictation. No pericardial effusion. No pleural effusion. No aortic dissection. No pulmonary embolism. Adenopathy in the anterior epicardial space also noted. Numerous lymph nodes in the paravertebral space also noted. No fracture. Lungs clear. No pulmonary nodule or infiltrate. In the abdomen, the spleen is enlarged measuring 17.0 x 13.9 x 10.2 cm. Trace ascites surrounds the spleen. No intrahepatic mass. Incidental cyst is located within the liver measuring 1.2 cm. The pancreas is normal. Gallbladder nondistended. Adrenal glands normal. Normal kidneys. The stomach is unremarkable. Bulky retroperitoneal adenopathy with lymph nodes measuring up to 5 cm. Mildly prominent mesenteric lymph nodes are present within the central mesenteric fat along with mesenteric stranding. No free air. In the pelvis, the prostate is mildly heterogeneous. The bladder is normal. No bowel obstruction. No abscess. Bulky bilateral iliac adenopathy noted with lymph nodes measuring up to 2.9 cm. Enlarged bilateral inguinal lymph nodes. Vasectomy clips are present. Degenerative disc disease L5-S1 and L2-3. No vertebral body compression fracture. Impression: Bulky intrathoracic, intra-abdominal and intrapelvic adenopathy. Splenomegaly with trace perisplenic fluid. Please note that all CT scans at this facility use dose modulation, iterative reconstruction, and/or weight-based dosing when appropriate to reduce radiation dose to as low as reasonably achievable. Dictated by Arpit Valera MD @ Mar ??8 2022 ??7:30AM (Electronically Signed) Narrative 03/24/2023 7:30 AM CDT For Patients: ??As a result of the 21st Century Cures Act, medical imaging exams and procedure reports are released immediately into your electronic medical record. ??You may view this report before your referring provider. ??If you have questions, please contact your health care provider. Indication: Adenopathy Technique: Postcontrast CT chest, abdomen and pelvis. 100 cc Omnipaque 350 intravenous contrast. Please note that all CT scans at this facility use dose modulation, iterative reconstruction, and/or weight-based dosing when appropriate to reduce radiation dose to as low as reasonably achievable. Comparison: None Findings: In the chest, bulky thoracic inlet, axillary, hilar and mediastinal adenopathy. Bulky adenopathy in the left supraclavicular space was biopsied 03/20/2023. Results are not back at the time of dictation. No pericardial effusion. No pleural effusion. No aortic dissection. No pulmonary embolism. Adenopathy in the anterior epicardial space also noted. Numerous lymph nodes in the paravertebral space also noted. No fracture. Lungs clear. No pulmonary nodule or infiltrate. In the abdomen, the spleen is enlarged measuring 17.0 x 13.9 x 10.2 cm. Trace ascites surrounds the spleen. No intrahepatic mass. Incidental cyst is located within the liver measuring 1.2 cm. The pancreas is normal. Gallbladder nondistended. Adrenal glands normal. Normal kidneys. The stomach is unremarkable. Bulky retroperitoneal adenopathy with lymph nodes measuring up to 5 cm. Mildly prominent mesenteric lymph nodes are present within the central mesenteric fat along with mesenteric stranding. No free air. In the pelvis, the prostate is mildly heterogeneous. The bladder is normal. No bowel obstruction. No abscess. Bulky bilateral iliac adenopathy noted with lymph nodes measuring up to 2.9 cm. Enlarged bilateral inguinal lymph nodes. Vasectomy clips are present. Degenerative disc disease L5-S1 and L2-3. No vertebral body compression fracture. Impression: Bulky intrathoracic, intra-abdominal and intrapelvic adenopathy. Splenomegaly with trace perisplenic fluid. Please note that all CT scans at this facility use dose modulation, iterative reconstruction, and/or weight-based dosing when appropriate to reduce radiation dose to as low as reasonably achievable. Dictated by Arpit Valera MD @ Mar ??8 2022 ??7:30AM (Electronically Signed) ?? Procedure Note Arpit Valera MD - 03/24/2023 For Patients: As a result of the Century Cures Act, medical imagingexams and procedure reports are released immediately into your electronicmedical record. You may view this report before your referring provider.If you have questions, please contact your health care provider. Indication: Adenopathy Technique: Postcontrast CT chest, abdomen and pelvis. 100 cc Omnipaque 350intravenous contrast. Please note that all CT scans at this facility use dose modulation,iterative reconstruction, and/or weight-based dosing when appropriate toreduce radiation dose to as low as reasonably achievable. Comparison: None Findings: In the chest, bulky thoracic inlet, axillary, hilar and mediastinaladenopathy. Bulky adenopathy in the left supraclavicular space wasbiopsied 03/20/2023. Results are not back at the time of dictation. Nopericardial effusion. No pleural effusion. No aortic dissection. Nopulmonary embolism. Adenopathy in the anterior epicardial space alsonoted. Numerous lymph nodes in the paravertebral space also noted. Nofracture. Lungs clear. No pulmonary nodule or infiltrate. In the abdomen, the spleen is enlarged measuring 17.0 x 13.9 x 10.2 cm.Trace ascites surrounds the spleen. No intrahepatic mass. Incidental cystis located within the liver measuring 1.2 cm. The pancreas is normal.Gallbladder nondistended. Adrenal glands normal. Normal kidneys. Thestomach is unremarkable. Bulky retroperitoneal adenopathy with lymph nodesmeasuring up to 5 cm. Mildly prominent mesenteric lymph nodes are presentwithin the central mesenteric fat along with mesenteric stranding. No freeair. In the pelvis, the prostate is mildly heterogeneous. The bladder isnormal. No bowel obstruction. No abscess. Bulky bilateral iliac adenopathynoted with lymph nodes measuring up to 2.9 cm. Enlarged bilateral inguinallymph nodes. Vasectomy clips are present. Degenerative disc disease L5-S1and L2-3. No vertebral body compression fracture. Impression: Bulky intrathoracic, intra-abdominal and intrapelvic adenopathy. Splenomegaly with trace perisplenic fluid. Please note that all CT scans at this facility use dose modulation,iterative reconstruction, and/or weight-based dosing when appropriate toreduce radiation dose to as low as reasonably achievable. Dictated by Arpit Valera MD @ Mar 24 2023 7:30AM (Electronically Signed) Salvador Rankin MD CT * (ABNORMAL) LIPID PANEL W REFLEX MEASURED LDL (03/10/2023 9:03 AM CDT) CHOLESTEROL,TOTAL 160 100 - 199 mg/dL 03/10/2023 7:25 PM CDT [facility] Comment: Cholesterol, Total Reference Ranges Desirable <200 mg/dL Borderline 200-239 mg/dL High >=240 mg/dL TRIGLYCERIDES 125 <150 mg/dL 03/10/2023 7:25 PM CDT [facility] HDL CHOLESTEROL 27(L) >40 mg/dL 7:25 PM CDT [facility] NON-HDL CHOLESTEROL 133 <145 mg/dl 03/10/2023 7:25 PM CDT [facility] CHOL/HDL RATIO 5.93(H) <4.50 03/10/2023 7:25 PM CDT [facility] LDL CHOLESTEROL 108 <=130 mg/dL 03/10/2023 7:25 PM T [facility] VLDL CHOLESTEROL 25 <=30 mg/dL 03/10/2023 7:25 PM T [facility] PROVIDER ORDERED STATUS RANDOM 03/10/2023 7:25 PM T [facility] Blood BLOOD SPECIMEN / Unknown Venipuncture / Unknown 03/10/2023 9:03 AM CDT 03/10/2023 9:04 AM CDT Salvador Rankin MD CHEMISTRY [facility] [address] [place] [address], * ANTI HIV 1/2 (07/15/2022 9:49 AM QUALITY CONTROL OPERATOR) HIV-1/HIV-2 ANTIBODY Non-Reacti ve Non-Reacti ve 07/16/2022 12:43 PM QUALITY CONTROL OPERATOR [facility] Comment:HIV-1 p24 and HIV-1/ HIV-2 Ab not detected. Blood BLOOD SPECIMEN / Unknown Venipuncture / Unknown 07/15/2022 9:49 AM QUALITY CONTROL OPERATOR 07/15/2022 9:50 AM QUALITY CONTROL OPERATOR Mehul Schmidt MD SEND OUTS [facility] [address] [place] [address], * ANTI HCV (02/22/2021 8:37 AM CDT) HEPATITIS C ANTIBODY Non-React donny Non-React donny 02/22/2021 2:29 PM CDT [facility] Comment:Antibodies to HCV no t detected; does not exclude the possibility of exposure to HCV. Blood BLOOD SPECIMEN / Unknown Venipuncture / Unknown 02/22/2021 8:37 AM CDT 02/22/2021 8:37 AM CDT Mehul Schmidt MD SEND OUTS [facility] [address] [place] [address], from Last 3 Months or Most Recently Relevant to Health Maintenance Care Teams Fish Grader Relationship Specialty Start Date End Date Mehul Schmidt MD [address] [place] [address] PCP - General Family Practice 03/12/22 Pcp, No . 10/29/17 Ayad Ann MD [address] [facility] [address] [place] [address] Cardiovascular Disease 08/13/23 Nurses, Advanced Heart Failure [address] [place] [id number] Advanced Heart Failure/Transplant Card 08/13/23
--- NOTE | 2024-05-12 15:30 | PE_ITS ---
[facility] [address] [facility] [address] Phone:?[phone] Fax:?[phone] Referring Physician Information: Bailey Swanson M.D. [address] [facility] [address] Phone:?[phone] Fax:?[phone] Patient:Penny Campos D.O.B:?1960 Sex:?Male Phone:?[phone] [facility] MRN:?[id number] Exam Date:?05/12/2024 EXAM: PET/CT EYES TO THIGHS, CANCER RESTAGING CLINICAL INFORMATION: Follicular lymphoma, restaging. TECHNICAL INFORMATION: Helical acquisition of data was obtained from the orbits to the upper thighs with reconstruction of 3.75 mm thick images at 3.[address] data was used for attenuation correction. PET scanning was performed through the same anatomic range 60 minutes following administration of 10.25 mCi of 18-FDG delivered intravenously. The patient's glucose at the time of the injection was 79 mg/dL. PET, CT and PET/CT fusion images are interpreted using a computer viewing workstation. PET, CT and PET/CT fusion images were archived and saved in the patient's permanent medical record. COMPARISON: PET-CTs from 11/12/2023, 06/25/2023, and 03/30/2023. INTERPRETATION: Head and Neck: There are no abnormal hypermetabolic foci within the head or neck. There is physiologic uptake in the intracranial soft tissues. Multiple nonenlarged lymph nodes are present throughout the neck, bilaterally, consistent with treated/quiescent disease. No pathologic lymphadenopathy in terms of size, morphology, or metabolic rate. Chest: There are no abnormal hypermetabolic foci within the chest. Background mediastinal blood pool uptake has a maximum SUV of 2.6. No lung nodules or masses detected on this free-breathing exam. No intrathoracic lymphadenopathy in terms of size, morphology, or metabolic rate; previously indexed subcarinal and axillary nodes are no longer enlarged or hypermetabolic. Right chest port catheter terminates at the cavoatrial junction. Abdomen and Pelvis: There are no abnormal hypermetabolic foci within the abdomen or pelvis. Background hepatic parenchymal uptake has a maximum SUV of 3.1. Splenic parenchymal uptake has a maximum SUV of 2.6. There is physiologic excretion of radiotracer in the urine and bowel. No abdominopelvic lymphadenopathy in terms of size, morphology, or metabolic rate; previously indexed portocaval, retroperitoneal, and pelvic nodes are no longer enlarged or hypermetabolic. Prior splenomegaly has resolved. The right ureter is moderately ectatic; urolithiasis or other visible cause for obstruction. Skeleton, Musculature, and Integument: No abnormal hypermetabolic foci within the skeleton. No sofiya osteoblastic or osteolytic disease. CONCLUSION: 1. Stable exam. No evidence of metabolically active lymphoma. No pathologic lymphadenopathy or splenomegaly at this time. Findings are consistent with complete response to therapy. Deauville score is 1. 2. The right ureter is persistently dilated; no urolithiasis or other visible cause for obstruction. Recommend correlation with urinalysis and consider CT urogram if warranted. Electronically signed on 05/13/2024 1:05:00 PM by Chano Rainey M.D.
== END 2024-05-12 14:46 | disposition home or self-care (01) ==
LOC: RAD 14:46
PROVIDERS: PCP Family Medicine; Visit Provider Internal Medicine Hematology & Oncology
DX: C82.30 Follicular lymphoma grade IIIa, unspecified site (principal)
CPT/HCPCS: 78815; A9552

== ENCOUNTER 2024-09-30 08:00 | Outpatient (RCR) | payer BC, SELFPAY ==
[2024-05-06 14:21] LABS: Basophils Percent Auto 0.3 % (0.0-3.0); Eosinophils Percent Auto 4.3 % (0.0-7.0); Hematocrit 42.2 % (37.0-53.0); Hemoglobin* 13.5 gm/dL (13.5-17.5); Immature Granulocytes Pct Auto 1.4 %; Lymphocytes Percent Auto 30.7 % (20-44); Mean Corpuscular HGB Conc 32 gm/dL (32-36); Mean Corpuscular Hemoglobin 30 pg (26-34); Mean Corpuscular Volume 94 fL (80-100); Monocytes Percent Auto 12.2 % (0.0-11.0); Neutrophils Percent Auto 51.1 % (42.0-72.0); Platelet Count* 103 K/uL (140-440); RDW Coefficient of Variation % 13.6 % (11.5-15.5); White Blood Count* 3.45 K/uL (4.50-11.00)
[2024-05-06 14:24] LABS: Slide Review Reflex No
[2024-05-06 14:31] LABS: Albumin* 4.4 g/dL (3.3-5.0)
[2024-05-06 14:32] LABS: Chloride* 106 mmol/L (96-114); Potassium* 4.2 mmol/L (3.6-5.1); Sodium* 140 mmol/L (135-149)
[2024-05-06 14:34] LABS: Anion Gap 7 mEq/L (7-15); Aspartate Amino Transferase* 40 U/L (12-35); Bilirubin Total* 0.6 mg/dL (0.1-1.5); Carbon Dioxide* 27 mmol/L (20-32); Creatinine* 1.1 mg/dL (0.5-1.5); Estimated Glomerular Filt Rate 75 ml/min; Total Protein* 6.4 g/dL (6.0-8.3)
[2024-05-06 14:35] LABS: Alanine Aminotransferase* 31 U/L (4-50); Alkaline Phosphatase* 87 U/L (40-150); Blood Urea Nitrogen* 21 mg/dL (7-30); Calcium* 9.3 mg/dL (8.4-10.6); Glucose* 101 mg/dL (60-115)
[2024-05-09] MEDS: ACETAMINOPHEN 325 MG TABLET 975 MG PO (09:13)
[2024-05-09] MEDS: dexAMETHasone 20 MG in 0.9 % SODIUM CHLORIDE 100 ml 100 ML 408 MG IVPB (09:22)
[2024-05-09] MEDS: diphenhydrAMINE 50 MG in 0.9 % SODIUM CHLORIDE 100 ml 100 ML 404 MG IVPB (09:41)
[2024-05-09] MEDS: OBINUTUZUMAB 1,000 MG, TUBING PRIMARY 1 EACH in 0.9 % SODIUM CHLORIDE 250 ml 250 ML 25 MG IVPB (10:38)
[2024-05-09] MEDS: SODIUM CHLORIDE 0.9 % (FLUSH) 10 ML SYRINGE IVF (12:35)
[2024-05-09] MEDS: HEPARIN 500 UNIT/5 ML SYRINGE IVF (12:35)
--- NOTE | 2024-06-28 12:42 | ONC.NURNOTE ---
Pt called to reschedule 07/11/[address] Swanson and infusion. Pt will be out of town that week. Pt rescheduled to 07/18/24.
[2024-07-18 08:40] LABS: Basophils Percent Auto 0.5 % (0.0-3.0); Eosinophils Percent Auto 2.5 % (0.0-7.0); Hematocrit 45.1 % (37.0-53.0); Hemoglobin* 14.6 gm/dL (13.5-17.5); Immature Granulocytes Pct Auto 3.2 %; Lymphocytes Percent Auto 42.7 % (20-44); Mean Corpuscular HGB Conc 32 gm/dL (32-36); Mean Corpuscular Hemoglobin 30 pg (26-34); Mean Corpuscular Volume 92 fL (80-100); Monocytes Percent Auto 11.2 % (0.0-11.0); Neutrophils Percent Auto 39.9 % (42.0-72.0); Platelet Count* 103 K/uL (140-440); RDW Coefficient of Variation % 13.8 % (11.5-15.5); White Blood Count* 4.36 K/uL (4.50-11.00)
[2024-07-18 08:43] LABS: Slide Review Reflex Yes
[2024-07-18 08:54] LABS: Albumin* 4.3 g/dL (3.3-5.0); Chloride* 108 mmol/L (96-114)
[2024-07-18 08:55] LABS: Potassium* 4.7 mmol/L (3.6-5.1); Sodium* 139 mmol/L (135-149)
[2024-07-18 08:57] LABS: Anion Gap 7 mEq/L (7-15); Aspartate Amino Transferase* 31 U/L (12-35); Bilirubin Total* 0.5 mg/dL (0.1-1.5); Carbon Dioxide* 24 mmol/L (20-32); Creatinine* 0.9 mg/dL (0.5-1.5); Est. Creatinine Clearance* 78.44; Estimated Glomerular Filt Rate 95 ml/min; Total Protein* 6.4 g/dL (6.0-8.3)
[2024-07-18 08:58] LABS: Alanine Aminotransferase* 27 U/L (4-50); Alkaline Phosphatase* 102 U/L (40-150); Blood Urea Nitrogen* 21 mg/dL (7-30); Calcium* 9.3 mg/dL (8.4-10.6); Glucose* 96 mg/dL (60-115)
[2024-07-18 09:02] LABS: Slide Review Acceptable Review (Acceptable)
[2024-07-18] MEDS: ACETAMINOPHEN 325 MG TABLET 975 MG PO (09:24)
[2024-07-18] MEDS: diphenhydrAMINE 25 MG CAPSULE 50 MG PO (09:25)
[2024-07-18] MEDS: dexAMETHasone 20 MG in 0.9 % SODIUM CHLORIDE 100 ml 100 ML 408 MG IVPB (09:43)
[2024-07-18] MEDS: OBINUTUZUMAB 1,000 MG, TUBING PRIMARY 1 EACH in 0.9 % SODIUM CHLORIDE 250 ml 250 ML 25 MG IVPB (09:59)
[2024-07-18] MEDS: SODIUM CHLORIDE 0.9 % (FLUSH) 10 ML SYRINGE IVF ×2 (10:02→11:51)
[2024-07-18 10:40] VITALS: BP 94/61; PULSE 46; RESP 16; TEMP 36.3; O2SAT 97
[2024-07-18 11:50] VITALS: BP 103/61; PULSE 46; RESP 18; TEMP 35.9; O2SAT 100
[2024-07-18] MEDS: HEPARIN 500 UNIT/5 ML SYRINGE IVF (11:51)
[2024-09-12 07:58] VITALS: BP 124/85; PULSE 82; RESP 16; TEMP 36.8; O2SAT 99
[2024-09-12 08:29] LABS: Basophils Percent Auto 0.2 % (0.0-3.0); Eosinophils Percent Auto 1.6 % (0.0-7.0); Hematocrit 43.4 % (37.0-53.0); Hemoglobin* 14.1 gm/dL (13.5-17.5); Immature Granulocytes Pct Auto 2.1 %; Lymphocytes Percent Auto 37.7 % (20-44); Mean Corpuscular HGB Conc 33 gm/dL (32-36); Mean Corpuscular Hemoglobin 30 pg (26-34); Mean Corpuscular Volume 92 fL (80-100); Monocytes Percent Auto 13.1 % (0.0-11.0); Neutrophils Percent Auto 45.3 % (42.0-72.0); Platelet Count* 64 K/uL (140-440); RDW Coefficient of Variation % 13.4 % (11.5-15.5); Red Blood Count 4.72 m/uL (4.30-5.90); White Blood Count* 4.27 K/uL (4.50-11.00)
[2024-09-12 08:35] LABS: Slide Review Reflex No
[2024-09-12 08:41] LABS: Albumin* 4.2 g/dL (3.3-5.0); Chloride* 106 mmol/L (96-114)
[2024-09-12 08:42] LABS: Potassium* 4.6 mmol/L (3.6-5.1); Sodium* 138 mmol/L (135-149)
[2024-09-12 08:44] LABS: Anion Gap 5 mEq/L (7-15); Aspartate Amino Transferase* 45 U/L (12-35); Bilirubin Total* 0.9 mg/dL (0.1-1.5); Carbon Dioxide* 27 mmol/L (20-32); Creatinine* 0.9 mg/dL (0.5-1.5); Est. Creatinine Clearance* 78.44; Estimated Glomerular Filt Rate 95 ml/min; Total Protein* 6.3 g/dL (6.0-8.3)
[2024-09-12 08:45] LABS: Alanine Aminotransferase* 37 U/L (4-50); Alkaline Phosphatase* 103 U/L (40-150); Blood Urea Nitrogen* 21 mg/dL (7-30); Calcium* 8.9 mg/dL (8.4-10.6); Glucose* 97 mg/dL (60-115)
--- NOTE | 2024-09-12 10:42 | ONC.NURNOTE ---
Low Platelets Pt here today for labs/Gazyva. Pt had Implanted Cardioverter Defibrillator placed last 09/08 at [facility]. Procedure note and device info card copied and in chart. Plts [address] Swanson, hold treatment x 10-14 days to allow for implant healing and platelet recovery. Rescheduled for 09/22. Pt agreeable to this plan.
--- NOTE | 2024-09-22 07:37 | ONC.NURNOTE ---
Addendum entered by Barb Martin RN 09/22/24 12:49: Street Contractor called pt, pt states symptoms of a runny nose, congestion started on 09/20/24. Pt rescheduled for Gazyva on 09/30/24. Pt verbalized understanding of plan of care. Original Note: Pt left message stating he will not be in for his infusion due to testing positive for covid last evening. Street Contractor will call pt this morning to check on him and see when symptoms started to determine when pt can return to clinic for his infusion.
[2024-09-30 08:15] LABS: Basophils Percent Auto 0.2 % (0.0-3.0); Eosinophils Percent Auto 2.2 % (0.0-7.0); Hematocrit 42.1 % (37.0-53.0); Hemoglobin* 13.9 gm/dL (13.5-17.5); Mean Corpuscular HGB Conc 33 gm/dL (32-36); Mean Corpuscular Hemoglobin 30 pg (26-34); Mean Corpuscular Volume 90 fL (80-100); Neutrophils Percent Auto 45.6 % (42.0-72.0); Platelet Count* 122 K/uL (140-440); RDW Coefficient of Variation % 13.1 % (11.5-15.5); Red Blood Count 4.67 m/uL (4.30-5.90); White Blood Count* 4.16 K/uL (4.50-11.00)
[2024-09-30 08:34] LABS: Albumin* 4.3 g/dL (3.3-5.0); Chloride* 102 mmol/L (96-114); Sodium* 138 mmol/L (135-149)
[2024-09-30 08:36] LABS: Slide Review Reflex No
[2024-09-30 08:37] LABS: Alanine Aminotransferase* 57 U/L (4-50); Alkaline Phosphatase* 108 U/L (40-150); Anion Gap 8 mEq/L (7-15); Aspartate Amino Transferase* 59 U/L (12-35); Bilirubin Total* 0.6 mg/dL (0.1-1.5); Blood Urea Nitrogen* 15 mg/dL (7-30); Carbon Dioxide* 28 mmol/L (20-32); Creatinine* 0.9 mg/dL (0.5-1.5); Est. Creatinine Clearance* 78.44; Estimated Glomerular Filt Rate 95 ml/min; Glucose* 103 mg/dL (60-115); Total Protein* 6.3 g/dL (6.0-8.3)
[2024-09-30 08:38] VITALS: BP 104/67; PULSE 62; RESP 16; TEMP 36.3; O2SAT 98
[2024-09-30 08:38] LABS: Calcium* 8.6 mg/dL (8.4-10.6)
[2024-09-30] MEDS: diphenhydrAMINE 25 MG CAPSULE 50 MG PO (09:03)
[2024-09-30] MEDS: ACETAMINOPHEN 325 MG TABLET 975 MG PO (09:03)
[2024-09-30] MEDS: dexAMETHasone 20 MG in 0.9 % SODIUM CHLORIDE 100 ml 100 ML 408 MG IVPB (09:19)
[2024-09-30] MEDS: OBINUTUZUMAB 1,000 MG, TUBING PRIMARY 1 EACH in 0.9 % SODIUM CHLORIDE 250 ml 250 ML 25 MG IVPB (09:51)
[2024-09-30 10:26] VITALS: BP 114/78; PULSE 64; RESP 18; TEMP 36.9; O2SAT 96
[2024-09-30] MEDS: SODIUM CHLORIDE 0.9 % (FLUSH) 10 ML SYRINGE IVF (11:29)
[2024-09-30] MEDS: HEPARIN 500 UNIT/5 ML SYRINGE IVF (11:29)
[2024-09-30 11:50] VITALS: BP 111/76; PULSE 63; RESP 16; TEMP 36.8; O2SAT 97
== END 2024-11-02 23:59 | disposition home or self-care (01) ==
LOC: CCIC 08:00
PROVIDERS: Clinical Nurse Specialist; PCP Family Medicine; Referring Provider Family Medicine; Visit Provider Internal Medicine Hematology & Oncology
DX: Z51.12 Encounter for antineoplastic immunotherapy (principal); C82.30 Follicular lymphoma grade IIIa, unspecified site
CPT/HCPCS: 36415; 36591; 80053; 85025; 96367; 96375; 96376; 96413; 96415; 99214; G0463; A9270; J1100; J1200; J1642; J7050; J9301

== ENCOUNTER 2024-11-10 13:53 | Outpatient (CLI) | payer BC, SELFPAY ==
--- NOTE | 2024-11-10 14:00 | CRLHL7_ITS ---
For Patients: As a result of the Century Cures Act, medical imaging exams and procedure reports are released immediately into your electronic medical record. You may view this report before your referring provider. If you have questions, please contact your health care provider. 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 Restaging. TECHNIQUE: Radiopharmaceutical: 18F-fluorodeoxyglucose (18F-FDG) Dose: 12.36 milliCurie. Blood glucose: 73 mg/dL. Image acquisition: At approximately 60 minutes following IV tracer administration via a right antecubital vein, positron emission tomography was performed from the skull base through the mid thigh. Non-contrast low-dose helical CT imaging was performed over the same range without breath-hold for attenuation correction of PET images and anatomic correlation; it is neither sufficient, nor should it be substituted for diagnostic purposes. Bilateral forearms are mostly out of the field of view. COMPARISON: FDG PET-CT 05/12/2024. FINDINGS: Mediastinal blood pool FDG uptake: SUVMax 2.6 (image 125) Liver background parenchymal FDG uptake: SUVMax 3.7 (image 165) HEAD AND NECK: No abnormal FDG uptake in the imaged head and neck. CHEST: Ports and devices: Left-sided ICD. Lungs: No abnormal FDG uptake. Pleura: No abnormal FDG uptake. Thoracic lymph Nodes: No abnormal FDG uptake. Mediastinum: No abnormal FDG uptake. Coronary artery calcifications. Atherosclerotic calcifications of the thoracic aorta. Breasts/Chest Wall: No abnormal FDG uptake. ABDOMEN/PELVIS: Liver/biliary system: No abnormal FDG uptake. Right liver cyst. Pancreas: No abnormal FDG uptake. Spleen: No abnormal FDG uptake. Adrenal Glands: No abnormal FDG uptake. Kidneys: No abnormal FDG uptake. Bowel: No abnormal FDG uptake. Mesentery, Omentum and Peritoneum: No abnormal FDG uptake. Atherosclerotic calcifications. Pelvic Organs: No abnormal FDG uptake. Prostatomegaly. Abdominopelvic lymph Nodes: No abnormal FDG uptake. Musculoskeletal: No abnormal increased FDG uptake in the visualized skeleton. Multilevel degenerative changes in the spine. Chronic compression deformities in the lumbar spine. New 1.0 x 0.4 cm cutaneous lesion, left lower back SUVMax 4.8 (Image 241). IMPRESSION: This FDG PET-CT was performed from the skull base to the thighs. As a result, the scalp between the vertex of the head and skull base is not visualized. Additionally the bilateral forearms are mostly out of the field of view. For more complete characterization for recurrent metabolically active cutaneous lesions in the scalp, as well as for other new metabolically active cutaneous lesions in the body, follow-up FDG PET-CT study should ideally be performed from the vertex of the skull to the feet, with coverage of the bilateral upper extremities to the level of the hands. 1. New moderately FDG avid 1.0 x 0.4 cm cutaneous lesion in the left lower back, likely inflammatory. Correlate with direct inspection. 2. No other sites of FDG avid disease. No evidence to support metastatic FDG avid malignancy. Dictated by Pablo Gómez MD @ 11/11/2024 1:04:36 PM (Electronically Signed)
== END 2024-11-10 13:54 | disposition home or self-care (01) ==
LOC: RAD 13:53
PROVIDERS: PCP Family Medicine; Visit Provider Internal Medicine Hematology & Oncology
DX: C82.30 Follicular lymphoma grade IIIa, unspecified site (principal)
CPT/HCPCS: 78815; A9552

== ENCOUNTER 2024-11-16 09:41 | Outpatient (CLI) | payer BC, SELFPAY ==
--- NOTE | 2024-11-16 09:30 | CRLHL7_ITS ---
For Patients: As a result of the Century Cures Act, medical imaging exams and procedure reports are released immediately into your electronic medical record. You may view this report before your referring provider. If you have questions, please contact your health care provider. Indication: FOLLICULARLYMPHOMA GRADE 3, UPTAKE ON PET SCAN Technique: Grayscale and color Doppler ultrasound of the left lower back soft tissues performed. Comparison: CT-PET 11/10/2024 Findings: Targeted ultrasound to the area of concern within the left lower back performed. In this location, there is a pimple with underlying inflammation within the epidermal layer which measures 7 x 3 by 10 millimeters. No abnormal vascularity. No suspicious findings. Impression: Inflamed skin lesion representing a pimple with epidermal inflammation within the left lower back accounting for the PET uptake. No suspicious findings Dictated by Arpit Valera MD @ 11/16/2024 1:03:29 PM (Electronically Signed)
== END 2024-11-16 09:42 | disposition home or self-care (01) ==
LOC: US 09:42
PROVIDERS: PCP Family Medicine; Visit Provider Internal Medicine Hematology & Oncology
DX: C82.30 Follicular lymphoma grade IIIa, unspecified site (principal); L98.9 Disorder of the skin and subcutaneous tissue, unspecified
CPT/HCPCS: 76705

== ENCOUNTER 2025-04-27 13:42 | Outpatient (CLI) | payer BC, SELFPAY ==
--- NOTE | 2025-04-27 14:00 | CRLHL7_ITS ---
For Patients: As a result of the Century Cures Act, medical imaging exams and procedure reports are released immediately into your electronic medical record. You may view this report before your referring provider. If you have questions, please contact your health care provider. CLINICAL HISTORY: Lymphoma. TECHNIQUE: Following IV injection of 14-dhatxi-1-deoxyglucose (FDG) and a standard uptake period of approximately 60 minutes, a non-contrast CT scan followed by a PET scan were acquired along the length of the body from the mid portion of the head to the mid thighs. The non-contrast CT was used for anatomic localization and photon attenuation correction of the PET scan. Blood Glucose Level (mg/dL): 75 FDG Dose (mCi): 12.6 COMPARISON: PET-CT scans dated 10 November 2024 and 12 May 2024. FINDINGS: Head/Neck: No abnormal activity identified in the head and neck. Mucous membrane thickening in the right maxillary sinus. Chest: Right-sided Port-A-Cath. Left-sided pacemaker. No mediastinal or hilar adenopathy. No axillary adenopathy. The lungs show no focal pulmonary opacities. No pneumothorax. Abdomen/Pelvis: No focal abnormalities identified in the visualized portions of the liver, spleen, pancreas, adrenal glands, and kidneys. No hydronephrosis. The GI tract is incompletely distended but shows no gross abnormalities. No retroperitoneal, pelvic sidewall, or mesenteric adenopathy. Mild atherosclerotic vascular calcifications. Bones: No abnormal skeletal activity identified. IMPRESSION: 1. No abnormal activity or adenopathy identified. Dictated by Jj Hawkins MD @ 05/01/2025 1:46:14 PM (Electronically Signed)
== END 2025-04-27 13:43 | disposition home or self-care (01) ==
LOC: RAD 13:43
PROVIDERS: PCP Family Medicine; Visit Provider Internal Medicine Hematology & Oncology
DX: C82.30 Follicular lymphoma grade IIIa, unspecified site (principal)
CPT/HCPCS: 78815; A9552

== ENCOUNTER 2025-05-03 07:45 | Outpatient (RCR) | payer BC, SELFPAY ==
[2024-11-16 09:44] LABS: Hematocrit 43.4 % (37.0-53.0); Hemoglobin* 14.1 gm/dL (13.5-17.5); Immature Granulocytes Pct Auto 2.9 %; Mean Corpuscular HGB Conc 33 gm/dL (32-36); Mean Corpuscular Hemoglobin 30 pg (26-34); Mean Corpuscular Volume 91 fL (80-100); RDW Coefficient of Variation % 13.8 % (11.5-15.5); Red Blood Count 4.76 m/uL (4.30-5.90); White Blood Count* 4.46 K/uL (4.50-11.00)
[2024-11-16 09:52] LABS: Immature Granulocytes Abs Auto 0.10 K/uL (0.00-0.30); Lymphocytes Absolute Auto 1.60 K/uL (0.90-2.90); Slide Review Reflex No
[2024-11-16 09:59] LABS: Albumin* 4.4 g/dL (3.3-5.0); Chloride* 106 mmol/L (96-114); Potassium* 4.3 mmol/L (3.6-5.1); Sodium* 138 mmol/L (135-149)
[2024-11-16 10:02] LABS: Alanine Aminotransferase* 42 U/L (4-50); Alkaline Phosphatase* 108 U/L (40-150); Anion Gap 4 mEq/L (7-15); Aspartate Amino Transferase* 43 U/L (12-35); Bilirubin Total* 0.7 mg/dL (0.1-1.5); Blood Urea Nitrogen* 18 mg/dL (7-30); Calcium* 9.2 mg/dL (8.4-10.6); Carbon Dioxide* 28 mmol/L (20-32); Creatinine* 0.8 mg/dL (0.5-1.5); Est. Creatinine Clearance* 78.44; Estimated Glomerular Filt Rate 98 ml/min; Glucose* 99 mg/dL (60-115); Total Protein* 6.4 g/dL (6.0-8.3)
[2024-11-16] MEDS: ACETAMINOPHEN 325 MG TABLET 975 MG PO (10:37)
[2024-11-16] MEDS: dexAMETHasone 20 MG in 0.9 % SODIUM CHLORIDE 100 ml 100 ML 408 MG IVPB (11:04)
[2024-11-16] MEDS: OBINUTUZUMAB 1,000 MG, TUBING PRIMARY 1 EACH in 0.9 % SODIUM CHLORIDE 250 ml 250 ML 25 MG IVPB (11:26)
[2024-11-16 12:02] VITALS: BP 109/74; PULSE 62; RESP 18; TEMP 36.6; O2SAT 98
[2025-01-11 07:54] LABS: Hematocrit 43.0 % (37.0-53.0); Hemoglobin* 13.9 gm/dL (13.5-17.5); Immature Granulocytes Pct Auto 2.3 %; Mean Corpuscular HGB Conc 32 gm/dL (32-36); Mean Corpuscular Hemoglobin 30 pg (26-34); Mean Corpuscular Volume 92 fL (80-100); RDW Coefficient of Variation % 13.8 % (11.5-15.5); Red Blood Count 4.70 m/uL (4.30-5.90); White Blood Count* 3.52 K/uL (4.50-11.00)
[2025-01-11 07:58] LABS: Immature Granulocytes Abs Auto 0.10 K/uL (0.00-0.30); Lymphocytes Absolute Auto 1.20 K/uL (0.90-2.90); Slide Review Reflex No
[2025-01-11 08:09] LABS: Albumin* 4.1 g/dL (3.3-5.0); Chloride* 107 mmol/L (96-114); Potassium* 4.3 mmol/L (3.6-5.1); Sodium* 138 mmol/L (135-149)
[2025-01-11 08:12] LABS: Alanine Aminotransferase* 42 U/L (4-50); Alkaline Phosphatase* 106 U/L (40-150); Anion Gap 4 mEq/L (7-15); Aspartate Amino Transferase* 42 U/L (12-35); Bilirubin Total* 0.8 mg/dL (0.1-1.5); Blood Urea Nitrogen* 17 mg/dL (7-30); Calcium* 9.0 mg/dL (8.4-10.6); Carbon Dioxide* 27 mmol/L (20-32); Creatinine* 0.8 mg/dL (0.5-1.5); Est. Creatinine Clearance* 78.44; Estimated Glomerular Filt Rate 98 ml/min; Glucose* 103 mg/dL (60-115); Total Protein* 6.2 g/dL (6.0-8.3)
[2025-01-11] MEDS: ACETAMINOPHEN 325 MG TABLET 975 MG PO (09:04)
[2025-01-11] MEDS: dexAMETHasone 20 MG in 0.9 % SODIUM CHLORIDE 100 ml 100 ML 408 MG IVPB (09:21)
[2025-01-11] MEDS: OBINUTUZUMAB 1,000 MG, TUBING PRIMARY 1 EACH in 0.9 % SODIUM CHLORIDE 250 ml 250 ML 25 MG IVPB (09:42)
[2025-01-11] MEDS: SODIUM CHLORIDE 0.9 % (FLUSH) 10 ML SYRINGE IVF ×2 (09:42→11:30)
[2025-01-11 10:18] VITALS: BP 90/49; PULSE 66; RESP 18; TEMP 36.6; O2SAT 97
[2025-01-11 11:29] VITALS: BP 108/69; PULSE 65; RESP 16; TEMP 36.1; O2SAT 97
[2025-01-11] MEDS: HEPARIN 500 UNIT/5 ML SYRINGE IVF (11:30)
[2025-03-08 07:58] VITALS: BP 108/71; PULSE 61; TEMP 36.4; O2SAT 97
[2025-03-08 08:11] LABS: Hematocrit 43.5 % (37.0-53.0); Hemoglobin* 14.5 gm/dL (13.5-17.5); Immature Granulocytes Abs Auto 0.20 K/uL (0.00-0.30); Immature Granulocytes Pct Auto 5.4 %; Mean Corpuscular HGB Conc 33 gm/dL (32-36); Mean Corpuscular Hemoglobin 30 pg (26-34); Mean Corpuscular Volume 91 fL (80-100); RDW Coefficient of Variation % 13.6 % (11.5-15.5); Red Blood Count 4.78 m/uL (4.30-5.90); White Blood Count* 3.68 K/uL (4.50-11.00)
[2025-03-08 08:13] LABS: Lymphocytes Absolute Auto 1.50 K/uL (0.90-2.90)
[2025-03-08 08:14] LABS: Slide Review Reflex No
[2025-03-08 08:23] LABS: Albumin* 4.2 g/dL (3.3-5.0); Chloride* 104 mmol/L (96-114); Potassium* 4.3 mmol/L (3.6-5.1); Sodium* 137 mmol/L (135-149)
[2025-03-08 08:26] LABS: Alanine Aminotransferase* 30 U/L (4-50); Alkaline Phosphatase* 100 U/L (40-150); Anion Gap 4 mEq/L (7-15); Aspartate Amino Transferase* 38 U/L (12-35); Bilirubin Total* 0.6 mg/dL (0.1-1.5); Blood Urea Nitrogen* 16 mg/dL (7-30); Carbon Dioxide* 29 mmol/L (20-32); Creatinine* 0.9 mg/dL (0.5-1.5); Est. Creatinine Clearance* 77.39; Estimated Glomerular Filt Rate 94 ml/min; Total Protein* 6.4 g/dL (6.0-8.3)
[2025-03-08 08:27] LABS: Calcium* 9.2 mg/dL (8.4-10.6); Glucose* 106 mg/dL (60-115)
[2025-03-08] MEDS: dexAMETHasone 20 MG in 0.9 % SODIUM CHLORIDE 100 ml 100 ML 408 MG IVPB (09:12)
[2025-03-08] MEDS: ACETAMINOPHEN 325 MG TABLET 975 MG PO (09:14)
[2025-03-08] MEDS: OBINUTUZUMAB 1,000 MG, TUBING PRIMARY 1 EACH in 0.9 % SODIUM CHLORIDE 250 ml 250 ML 25 MG IVPB (10:28)
[2025-03-08] MEDS: HEPARIN 500 UNIT/5 ML SYRINGE IVF (12:17)
[2025-03-08] MEDS: SODIUM CHLORIDE 0.9 % (FLUSH) 10 ML SYRINGE IVF (12:17)
[2025-05-03 07:59] LABS: Hematocrit 41.5 % (37.0-53.0); Hemoglobin* 13.6 gm/dL (13.5-17.5); Immature Granulocytes Pct Auto 1.2 %; Mean Corpuscular HGB Conc 33 gm/dL (32-36); Mean Corpuscular Hemoglobin 30 pg (26-34); Mean Corpuscular Volume 91 fL (80-100); RDW Coefficient of Variation % 13.6 % (11.5-15.5); Red Blood Count 4.55 m/uL (4.30-5.90); White Blood Count* 3.39 K/uL (4.50-11.00)
[2025-05-03 08:00] LABS: Immature Granulocytes Abs Auto 0.00 K/uL (0.00-0.30); Lymphocytes Absolute Auto 1.20 K/uL (0.90-2.90); Slide Review Reflex No
[2025-05-03 08:19] LABS: Albumin* 3.9 g/dL (3.3-5.0); Chloride* 103 mmol/L (96-114); Potassium* 4.3 mmol/L (3.6-5.1); Sodium* 137 mmol/L (135-149)
[2025-05-03 08:22] LABS: Alanine Aminotransferase* 35 U/L (4-50); Alkaline Phosphatase* 88 U/L (40-150); Anion Gap 5 mEq/L (7-15); Aspartate Amino Transferase* 35 U/L (12-35); Bilirubin Total* 0.5 mg/dL (0.1-1.5); Blood Urea Nitrogen* 16 mg/dL (7-30); Calcium* 8.7 mg/dL (8.4-10.6); Carbon Dioxide* 29 mmol/L (20-32); Creatinine* 0.8 mg/dL (0.5-1.5); Est. Creatinine Clearance* 77.39; Estimated Glomerular Filt Rate 98 ml/min; Glucose* 99 mg/dL (60-115); Total Protein* 5.8 g/dL (6.0-8.3)
[2025-05-03] MEDS: ACETAMINOPHEN 325 MG TABLET 975 MG PO (09:13)
[2025-05-03] MEDS: dexAMETHasone 20 MG in 0.9 % SODIUM CHLORIDE 100 ml 100 ML 408 MG IVPB (09:14)
[2025-05-03] MEDS: OBINUTUZUMAB 1,000 MG, TUBING PRIMARY 1 EACH in 0.9 % SODIUM CHLORIDE 250 ml 250 ML 25 MG IVPB (10:36)
[2025-05-03] MEDS: SODIUM CHLORIDE 0.9 % (FLUSH) 10 ML SYRINGE IVF (12:20)
[2025-05-03] MEDS: HEPARIN 500 UNIT/5 ML SYRINGE IVF (12:20)
== END 2025-05-15 23:59 | disposition home or self-care (01) ==
LOC: CCIC 07:45
PROVIDERS: Clinical Nurse Specialist; PCP Family Medicine; Referring Provider Family Medicine; Visit Provider Internal Medicine Hematology & Oncology
DX: Z51.12 Encounter for antineoplastic immunotherapy (principal); C82.30 Follicular lymphoma grade IIIa, unspecified site; D70.9 Neutropenia, unspecified; Z95.0 Presence of cardiac pacemaker
CPT/HCPCS: 36415; 36591; 80053; 85025; 96367; 96375; 96413; 96415; 99214; 99215; G0463; A9270; J1100; J1642; J7050; J9301